=== PATIENT | male | born 1970 | race Caucasian/White ===

== ENCOUNTER 2017-04-25 09:36 | Emergency (ER) | payer OTHER ==
[~2017-04-25] VITALS: Ht 182.9 cm; Wt 93.0 kg
[~2017-04-25 09:36] MED LIST: AUGMENTIN 875-1 EACH PO; BACTRIM DS TAB1 EACH PO; BENADRYL25 MG PO; BUTRANS1 EAC1 TD; CEPHALEXIN500 MG PO; DICLOXACILLIN500 MG PO; EPIPEN 2-P0.3 MG/0.3 IM; GABAPENTIN600 MG PO; HYDROCODON-ACE1 EAC8 PO; MAPAP500 MG PO; MULTI VITAMIN1 EACH PO; NORCO 10-325 T1 EACH PO; NORCO 5-325 TA1 EACH PO; NORCO 7.5-3251 EACH; PERCOCET 10-321 EACH PO; TYLENOL EXTRA500 MG PO
--- OUTSIDE RECORDS SUMMARY | 2017-04-25 09:47 | XMS | Clinical Summary ---
Demographics + + + | Address | [address] | | | [place] [address] | + + + | Home Phone | | + + + | Preferred Language | Unknown | + + + | Marital Status | Single | + + + | Muslim Affiliation | Unknown | + + + | Race | White | + + + | Ethnic Group | Not or | + + + Author + + + | Author | NON REVENUE LOCATIONS | + + + | Organization | NON REVENUE LOCATIONS | + + + | Address | Unknown | + + + | Phone | Unavailable | + + + Support + + +---------+ + | Name | Relationship | Address | Phone | + + +---------+ + | GEOFF POSADAS | ECON | Unknown | | + + +---------+ + Care Team Providers + +------+ + | Care Teacher Hearing Impaired Name | Role | Phone | + +------+ + | Mohan Bullock NP | PP | | + +------+ + Source Comments SUKHJINDER is fully live on both [facility] Ambulatory and [facility] InPatient.[facility] Allergies Not on File Current Medications Not on file Active Problems Not on file Social History + +-------+ +--------+------+ | Tobacco Use | Types | Packs/Day | Years | Date | | | | | Used | | + +-------+ +--------+------+ | Never Assessed | | | | | + +-------+ +--------+------+ + + + | Sex Assigned at | Date Recorded | | | | + + + | Not on file | | + + + Plan of Treatment + + + + + | Health Maintenance | Due Date | Last Done | Comments | + + + + + | INFLUENZA VACCINE | | | | | (FLU SHOT) | 7 | | | + + + + + Results Not on filefrom Last 3 Months"
--- OUTSIDE RECORDS SUMMARY | 2017-04-25 09:47 | XMS | Clinical Summary ---
Demographics + + + | Address | [address] | | | [place] [address] | + + + | Home Phone | | + + + | Preferred Language | Unknown | + + + | Marital Status | Single | + + + | Catholic Affiliation | Unknown | + + + [...] Team Providers + +------+ + | Care Trash Collector Supervisor Name | Role | Phone | + +------+ + | Mohan Bullock NP | PP | | + +------+ + Source Comments SUKHJINDER is fully live on both [facility] Ambulatory and [facility] InPatient.[facility] Allergies Not on File Current Medications Not [...]
[2017-04-25] MEDS ORDERED: BACTRIM DS TAB1 EACH PO ×2 (09:54→11:00)
[2017-04-25] MEDS ORDERED: AUGMENTIN 875-1 EACH PO (09:54)
[2017-04-25] MEDS ORDERED: ONDANSETRON ODT8 MG PO (11:00)
[2017-04-25] MEDS ORDERED: NORCO 5-325 TA1 EACH PO (11:00)
== END 2017-04-25 11:21 | disposition home or self-care (01) ==
LOC: ED 09:36
DX: R10.11 Right upper quadrant pain (principal); Z91.048 Other nonmedicinal substance allergy status; Z88.6 Allergy status to analgesic agent; Z88.8 Allergy status to other drugs, medicaments and biological substances; Z88.5 Allergy status to narcotic agent
CPT/HCPCS: 76705; 96374; 96375; 99284; J1170; J2405; J7030

== ENCOUNTER 2017-04-28 21:22 | Inpatient (IN) | payer OTHER ==
[~2017-04-28] VITALS: Ht 182.9 cm; Wt 92.7 kg
[~2017-04-28 21:22] MED LIST changes: +ONDANSETRON ODT8 MG PO
--- NOTE | 2017-04-29 02:05 | NUR ---
46YR OLD MAN ADMITTED FROM ER VIA STRETCHER TO ROOM 108. PT IS ALERT, ORIENTED IN GOOD SPIRITS ABLE TO STAND AND PIVOT ONTO BE. PT HAS BKA ON L. DENIES NAUSEA, RATES PAIN 4/10 R MID ABD. DENIES NEED FOR PAIN MEDICATION AT THIS TIME. ORIENTED TO ROOM AND CALL LIGHT. DENIES NEED TO VOID. ORDERS NOTED.
--- NOTE | 2017-04-29 03:06 | NUR ---
MEDICATED WITH MORPHINE 4MG IV C/O RUQ PAIN 09/03. WATCHING TV, NO N/V
--- NOTE | 2017-04-29 04:17 | NUR ---
PT AWAKE, WATCHING TV, NO FURTHER C/O PAIN AT [facility]. TOOK OFF HIS RIGHT LEG PROSTHESIS, PT DOES OWN CARE. NO N/V AT THIS TIME
--- NOTE | 2017-04-29 05:00 | NUR ---
medicated with Morphine 4mg iv c/o 09/03 abd pain, no n/v
--- NOTE | 2017-04-29 05:08 | NUR ---
Pt admitted at around 0230am to . c/o RUQ pain. has been medicated with 2 doses of Morphine 4mg iv, with good to fair pain relief, no n/v. IVF infusing w/o problems. Received one dose abx in ER. no adverses reaction to abx. 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 Pt does own prostesis care. Pt has been up to brp x2, with one person assist, has voided clear yellow urine, quantity sufficient. Waiting to be seen by Dr Kuhn this am. No other requests
--- NOTE | 2017-04-29 07:05 | NUR ---
medicated with morphine 4mg iv c/o 7 RUQ pain. AWake watching tv
--- NOTE | 2017-04-29 07:39 | NUR ---
PATIENT SITTING UP IN RECLINER PLAYING ON IPAD. CALL BUTTON IN REACH. HANDS AND FACE WASHED. PATIENT STATES THAT HER SISTER IS BRINGING CLOTHES TO CUELLAR IN TO BUT DOESNT WANT A SHOWER TODAY. ORAL CARE SET UP IN BATHROOM FOR USE AFTER BREAKFAST. NO OTHER NEEDS AT THIS TIME.
--- NOTE | 2017-04-29 07:43 | NUR ---
MEDHAT ASSESSMENT DONE. PT CONTINUES TO COMLAIN OF 09/03 PAIN IN RUQ. PT AWARE OF PAIN MEDICATION SCHEDULE AND STATES "I'M FINE UNTIL THE NEXT DOSE." PT WAITING TO SEE DR. VALLECILLO. PT VERBALIZES UNDERSATNDING OF PLAN OF CARE. PT WATCHING TV. BED RAILS UP. CALL LIGHT WITHIN REACH.
--- NOTE | 2017-04-29 09:04 | NUR ---
PT CALL LIGHT ON. PT REQUESTS PAIN MEDICATION AND TO KNOW WHEN HIS SCAN WILL BE. PT INFOMRED THAT SCAN WILL LIKELY BE EARLY THIS AFTERNOON. PT EXPRESSESS FRUSTRATION "ARE YOU FREEKING KIDDING ME!" AND STATES HE DOES NOT WANT TO GO ALL DAY WITHOUT EATING. PT ADVISED THAT THE SCAN WILL HAPPEN SOON POSSIBLE. MEDICAITONS GIVEN ORDERED (SEE MAR). PT EDUCATION R/T WHY TORDOL INSTEAD OF MORPHINE PERFORMED. PT VERBALIEZES UNDERSTANDING. PT WATCHING TV WITH MOTHER AT BEDSIDE. BED RAILS UP. CALL LIGHT WITHIN REACH. PT STATE HE HAS NO FURTHER REQUESTS OR COMPLAINTS AT THIS TIME.
--- NOTE | 2017-04-29 10:32 | NUR ---
NITHYA INFORMED THIS RN THAT PT HAS QUESTIONS ABOUT SHOWERING. PT ASKS IF HE SHOULD HAVE A HIBACLENS SHOWER. PT ADVISED THAT THIS IS NOT NECESSARY AT THIS POINT. PT STATES HE WOULD LIKE TO ANYWAY. NITHYA INFORMED AND IS ASSISTING PT WITH SHOWER. PT RATES HIS PAIN AT 7/10 THAT IS WORSE WITH MOVEMENT. BED RAILS UP. CALL LIGHT WITHIN REACH FAMILY AT BEDSIDE.
--- NOTE | 2017-04-29 10:40 | NUR ---
SPOKE WITH PATIENT IN ROOM. PRESENT IS HIS MOTHER. PATIENT LIVES WITH EDWARD WHO IS AT WORK. PATIENT DENIES ANY NEEDS FOR SAFE RETURN HOME AT DISCHARGE. ONLY ISSUE IS HE STATES HE NEEDS A NEW PCP. PATIENT HAS SEEN DR AMATO IN THE PAST. ACCORDING TO PATIENT, HE TRIED MAKING AN APPOINTMENT WITH HIM LAST WEEK REGARDING HIS ABDOMIN PAIN. HE WAS TOLD HE CANNOT GET IN FOR 3 MONTHS BECAUSE HE NEEDS AN APPOINTMENT FOR AT LEAST AN HOUR AND THEY DIDN'T HAVE ANYTHING AVAIABLE EARLIER. HE WAS VERY UPSET ABOUT THIS, AND WANTS TO FIND ANOTHER CLINIC. WE WILL HAVE CHW PROVIDE HIM PCP INFORMATION.
--- NOTE | 2017-04-29 11:10 | NUR ---
CHW visit with patient in room accompanied by his mother. Patient presented to the hospital with no current PCP. Previously had Dr. Knutson but when attempted to make appointment patient reports he was told it would take several months to get in as his appointment would need to be scheduled for one hour. Patient reports he would like to establish with a new PCP. I presented patient with a list of current local PCPs in our area acceptient new patient's and a blank TALAT. Explained that I could not recommend any one PCP vs. another, only who is accepting new patients. I also left my business card as a point of contact if they have any other questions or concerns.
--- NOTE | 2017-04-29 11:18 | NUR ---
PATIENT DONE WITH [facility] SHOWER. RIGHT ARM IV FLUSHED WITH 3ML OF NORMAL SALINE. BEDDING FRESHENED. PATIENT UP TO AMBULATE IN HALLWAY.
--- NOTE | 2017-04-29 12:08 | NUR ---
PT RESTING IN BED, WITH MOTHER AT SIDE. PT MENTIONED THAT HE HAS TROUBLE WITH STEVE SINCE JAN. PRETTY PAINFUL-WALKED AROUND SANDERS UNTIL PAIN INCREASED. PT MENTIONED WAITING FOR 1 MORE TEST-THEM SURGERY WITH DR VALLECILLO. HAD PRAYER WITH PT, GOOD VISIT, WILL CONTINUE TO FOLLOW
--- NOTE | 2017-04-29 12:10 | NUR ---
FOCUSED ASSESSMENT DUE. IMAGING TECHNITIAN AT BEDSIDE DISCUSSING SCAN WITH PT. PT STATES HIS QUESTIONS WERE ANSWERED. PT REPORTS 8/10 PAIN IN RUQ. PT UP TO AMBULATE AROUND UNIT WITH FAMILY. PT STATES NO REQUESTS OR COMPLAINTS AT THIS TIME.
--- NOTE | 2017-04-29 12:25 | NUR ---
PT CALL LIGHT ON. PT STATES HE IS FINISHED WITH HIS WALK AND IS READY TO BE "HOOKED BACK UP TO MY IV." IV FLUIDS RESTARTED. PT WATCHING TV. NO REQUESTS OR COMPLAINTS AT THIS TIME.
--- NOTE | 2017-04-29 13:03 | NUR ---
PATIENT SALINE LOCKED, UP TO BATHROOM TO VOID. IMAGING HERE TO TRANSPORT PATIENT TO DEPARTMENT FOR TESTING.
--- NOTE | 2017-04-29 14:54 | NUR ---
PT REPORTS PAIN 8/10 AFTER RETURNING FROM [place] SCAN. 4MG I.V. MORPHINE GIVEN AT THIS TIME. WILL MONITOR EFFECTIVENESS. PT REPORTS NO NAUSEA AT THIS TIME
--- NOTE | 2017-04-29 15:00 | NUR ---
PATIENT SITTING UP IN BED. MOTHER IN ROOM. CALL BUTTON IN REACH. NO NEEDS AT THIS TIME.
--- NOTE | 2017-04-29 15:23 | NUR ---
SURGERY RN'S HERE TO TAKE PT FOR EGD. PT VERBALIZES UNDERSTANDING OF PROCEEDURE AND STATES QUESTIONS HAVE BEEN ANSWERED. PT LEAVES WITH SURGERY RNS.
--- NOTE | 2017-04-29 15:52 | NUR ---
04/29/17 1552 Connie Shi 1546 PT ARRIVED IN PACU SLEEPY VISITING WITH STAFF. NO C/O'S AT THIS TIME. 1552 AT BEDSIDE.
--- NOTE | 2017-04-29 16:10 | NUR ---
PT RETURNED FROM PACU. PT IRRITATED WITH PLAN OF CARE. PT STATES "I JUST WANT SOMETHING TO EAT, ITS NOT MY STOMACH THAT HURTS." PT ASSESSMENT DONE. MEDICAITONS GIVEN (SEE MAR). PT VERBALIZES UNDERSTANDING OF PLAN OF CARE. PT WATCHING TV. BED RAILS UP. CALL LIGHT WITHIN REACH.
--- NOTE | 2017-04-29 17:12 | NUR ---
PT HERE FOR RUQ PAIN. PT REPORTS PAIN FROM 5-8/10. PT REQUESTS PAIN MEDICATIONS FREQUENTLY. EGD TODAY, GASTRITIS AND DUODENITIS FOUND. PT STARTED ON FULL LIQUID DIET AND CARAFATE. HYDA SCAN DONE TODAY, WNL. PT IRRITABLE WITH PLAN OF CARE. PT INDEPENDANT IN ROOM. HX OF RIGHT BKA. PT DENIES NAUSEA. FAMILY AT BEDSIDE. PIV IN RIGHT FORARM, INFUSING D5 LR AT 125. BOTH PEPCID AND PROTONIX ORDERED.
--- NOTE | 2017-04-29 17:26 | NUR ---
PT CALL LIGHT ON. PT STATES HE IS NOW HAVING 9/10 PAIN AFTER EATING SOME OF HIS LIQUID DIET TRAY. PT STATES "IT'S NO MY STOMACH THAT HURTS IT'S MY GALL BLADDER." PT IRRITABLE AND STATES "I JUST WANT SOME PIZZA." PT ADVISED THAT THIS COULD WORSEN HIS CONDITION AND FOR NOW THE DOCTOR HAS HIM ON A FULL LIQUID DIET. PT OFFERED PUDDING, YOGURT, MILK SHAKES AND OTHER FOODS. ALL REFUSED. PT WATCHING TV. BED RAILS UP. CALL LIGHT WITHIN REACH.
--- NOTE | 2017-04-29 18:51 | NUR ---
LAST Q HOUR VITALS DUE. PT REQUESTS ASSISTANCE UP TO REST ROOM. PT UP AND BACK TO BED WITHOUT ISSUE. SUPERVISOR PYROTECHNIC LOADING PRESENT IN ROOM ASISTING PT WHEN THIS RN ARRIVES. PT STATING "4/10" PAIN TO SUPERVISOR PYROTECHNIC LOADING. WHEN ASKED BY THIS RN PT REQUESTS PAIN MEDICATION. PT NOW STATING "7/10 STABBING PAIN." PT BACK TO BED. BED RAILS UP. CALL LIGTH WITHIN REACH. PT STATES HE HAS NO ADDITIONAL REQUESTS OR COMPALINTS AT THIS TIME.
--- NOTE | 2017-04-29 18:58 | NUR ---
RECEIVED REPORT FROM RN. PATIENT IS RESTING IN BED, BREATHING IS EVEN AND UNLABORED. REPORTS 09/03 PAIN IN ABD. DENIES NEED FOR PAIN MEDICATION AND STATES "THE DAY NURSE JUST GAVE IT TO ME A LITTLE BIT AGO." CALL LIGHT WITHIN REACH.
--- NOTE | 2017-04-29 19:08 | NUR ---
Per Dr Kuhn, patient is to take famotidine and pantoprazole
--- NOTE | 2017-04-29 21:45 | NUR ---
PATIENT RESTING COMFORTABLY IN BED, BREATHING IS EVEN AND UNLABORED. REPORTS 4/10 PAIN IN ABD. ASSESSMENT DONE, MEDICATIONS GIVEN PER EMAR, INCLUDING PRN PAIN MEDICATION. O2 SATURATION IS 95% ON ROOM AIR, PULSE IS 75. CALL LIGHT WITHIN REACH, AT BEDSIDE.
--- NOTE | 2017-04-29 23:22 | NUR ---
PATIENT RESTING COMFORTABLY IN BED, BREATHING IS EVEN AND UNLABORED. O2 SATURATION IS 95% ON ROOM AIR, PULSE IS 71. FLACC SCORE OF 0, RR IS 12. CALL LIGHT WITHIN REACH.
--- NOTE | 2017-04-30 02:43 | NUR ---
PATIENT RESTING COMFORTABLY IN BED, BREATHING IS EVEN AND UNLABORED. O2 SATURATION IS 95% ON ROOM AIR, PULSE IS 62. FLACC SCORE OF 0. CALL LIGHT WITHIN REACH.
--- NOTE | 2017-04-30 05:04 | NUR ---
PATIENT'S NIGHT WAS UNEVENTFUL. HE HAS BEEN RESTING THROUGHOUT SHIFT. VSS, URINE, PAIN WELL CONTROLLED WITH PRN PAIN MEDICATION. ALERT AND ORIENTED. ABD IS TENDER, BOWEL TONES ARE ACTIVE, PATIENT HAS FLATUS. PATIENT IS A SBA. IV FLUIDS INFUSING. NO ACUTE CHANGES FROM BEGINNING OF SHIFT.
--- NOTE | 2017-04-30 05:07 | NUR ---
PATIENT RESTING COMFORTABLY IN BED, BREATHING IS EVEN AND UNLABORED. FLACC SCORE OF 0. 02 SATURATION IS 97% ON ROOM AIR, PULSE IS 57. CALL LIGHT WITHIN REACH.
--- NOTE | 2017-04-30 05:32 | NUR ---
PATIENT ASSISTED TO BATHROOM WITH SBA. TOLERATING AMBULATION WELL. NOW RESTING IN BED AGAIN, BREATHING IS EVEN AND UNLABORED. O2 SATURATION IS 97% ON ROOM AIR, PULSE IS 58. REPORTS 8/10 PAIN IN RUQ OF ABD, PRN PAIN MEDICATION GIVEN. DENIES FURTHER NEED.S ASSESSMENT DONE. CALL LIGHT WITHIN REACH.
--- NOTE | 2017-04-30 07:08 | NUR ---
HAND OFF REPORT TAKEN FROM JOSH GUERIN. PT COMPLAINS OF 7/10 PAIN REQUESTING "MORE MORPHINE SOON POSSIBLE." THIS RN RETURNS TO ROOM WITH MORPHINE AND PT IS SLEEPING. RR = 12. PT AWAKENS TO VOICE. MEDICATION GIVEN (SEE MAR). PT FALLS EASILY BACK TO SLEEP. BED RAILS UP. CALL LIGTH WITHIN REACH.
--- NOTE | 2017-04-30 08:20 | NUR ---
PATIENT RESTING IN BED WATCHING TV. IN ROOM. PATIENT STATED 3 TIMES THAT HE IS SUPRISED THAT THE DRSilvia HAS NOT BEEN INTO SEE HIM THIS AM. PATIENT HANDS AND FACE WASHED. ORAL CARE SET UP IN BATHROOM FOR USE. RN IN ROOM TO PASS MEDS. FRESH ICE WATER GIVEN. NO OTHER NEEDS AT THIS TIME.
--- NOTE | 2017-04-30 08:41 | NUR ---
MORNING ASSESSMENT AND MEDICATIONS DUE. PT RESTING IN BED VISITING WITH AND FRIEND. PT REPORTS 09/03 PAIN "THAT GOES TO MY BACK." EDUCATION DONE R/T MEDICATIONS. PT DENIES NEED FOR MEDICATIONS BUT STATES "ILL TAKE THEM ANYWAY." ASSESSMENT DONE. MEDICAITONS GIVEN (SEE MAR). PT LAUGHING AND VISITING WITH AND FRIENDS. CALL LIGHT WITHIN REACH.
--- NOTE | 2017-04-30 08:57 | NUR ---
PT CALL LIGHT ON. PUMP ALARMING, FLUID BAG COMPLETE. PT TALKIG WITH FAMILY AND FRIENDS. PT REPORTS DRINKING A LARGE (HANDS SHOW ABOUT 32 OZ) MILK SHAKE LAST NIGHT. NEW BAG OF FLUID HANGING. PT EXPRESSES IRRITATION WITH PLAN OF CARE. " I FIGURED I HAVE ANSWERS BY NOW." BED RAILS UP. CALL LIGHT WITHIN REACH. THIS NURSES LEAVES ROOM. PT LAUGHING AND JOKING WITH FRIENDS.
--- NOTE | 2017-04-30 09:43 | NUR ---
QUESTION TO PATIENT AND TO HOW MUCH PATIENT MAY HAVE EATEN AFTER MIDNIGHT. PATIENT ENDORSED THAT HE HAD A MILKSHAKE BEFORE MIDNIGHT, 150ML OF WATER AFTER MIDNIGHT AND HAS CONTINUED TO CHEW TOBACCO THROUGHOUT. PATIENT UP TO AMBULATE IN HALLWAY.
--- NOTE | 2017-04-30 09:57 | NUR ---
PT REQUESTS MORE PAIN MEDICATION. THIS RN RESPONDS. PT REPORTING 8/10 PAIN "THROUGH TO THE BACK." EUDCATION R/T NPO STATUS. PT VERBALIZES UNDERSTANDING THAT NPO STATUS INCLUDES WATER AND CHEW. PT STATES HE WILL STOP USING HIS CHEW AND THAT "I HAVEN'T HAD ANY SINCE 529." MEDICAITON GIVEN (SEE MAR). PT WATCHIGN TV AND VISITING WITH . NO ADDITIONAL REQUESTS OR COMPLAINTS AT THIS TIME.
--- NOTE | 2017-04-30 10:24 | NUR ---
PATIENT IN BED RESTING. PATIENTS IN ROOM. CALL BUTTON IN REACH. NO OTHER NEEDS AT THIS TIME.
--- NOTE | 2017-04-30 10:59 | NUR ---
FOCUSSED ASSESSMENT DUE. PT UP IN BED WORKING ON PHONE AND TALKING WITH . PT REPORTS 6/10 PAIN. PT JOKING AND LAUGHING WITH . ASSESMENT DONE. JOSEPHINE HELD R/T NPO STATUS. PT VERBALIZES UNDERSTANDING OF PLAN OF CARE BUT REQUESTS FRUSTRATION "OH, GEEZE IT'S TAKING SO LONG TO FIX THIS PROBLEM." PT STATE HE HAS NOT HAD ANY CHEW SINCE 0500 BUT CHEW CANISTER IS NOTED AT BEDSIDE ( PROMPTLY PUTS IT AWAY). BED RAILS UP. CALL LIGHT AND PT BELONGINGS WITHIN REACH.
--- NOTE | 2017-04-30 13:48 | NUR ---
THIS RN CALLED SURGERY DEPARTMENT TO ASK ABOUT GIVING 1400 ANCEF. SURGERY FLAVOR EXTRACTOR STATES THE ANCEF WILL BE A PRE OP MED AND TO HOLD IT UNTIL SURGERY STAFF COMES. PT SURGERY CHECK LIST CONFIRMED. LR FOR SURGERY HUNG, PUMP OFF. PT REPORTING 6/10 PAIN IN RUQ. BED RAILS UP. CALL LIGHT WITHIN REACH.
--- NOTE | 2017-04-30 13:54 | NUR ---
PATIENT RESTING IN BED WATCHING TV. PATIENTS IN ROOM. CALL LIGHT WITHIN REACH. NO OTHER NEEDS AT THIS TIME.
--- NOTE | 2017-04-30 14:00 | NUR ---
PT RESTING IN BED, EDWARD ASLEEP NEXT TO HIM. SURGERY SCHEDULED FOR 1500 HRS TODAY. PT REQUESTED PRAYER, WILL FOLLOW NEEDED
--- NOTE | 2017-04-30 14:10 | NUR ---
SURGERY RN HERE TO TAKE PT. PT STATES ALL QUESTIONS HAVE BEEN ANSWERED. PT TRANSFERED TO SURGERY. REPORT GIVEN.
--- NOTE | 2017-04-30 18:17 | NUR ---
04/30/171816 Patricia Ko PATIENT MOANS. WHEN QUESTIONED WHETHER HE IS HAVING PAIN, PATIENT REPORTS "YEAH, STOMACH". PT IS UNABLE TO RATE HIS PAIN ON THE 1-10 SCALE. PT QUICKLY QUIETS. RR EVEN AND UNLABORED.
--- NOTE | 2017-04-30 18:30 | NUR ---
PRE OP: PT CONTINUES WITH 7-9/10 PAIN. PAIN MEDICATION GIVEN WHEN REQUESTED. PT NPO FOR SURGERY. PIV IN RIGHT ARM, D5 LR AT 125ML/HR. HX OF RIGHT BKA. PT INDEPENDANT IN ROOM BEFORE SURGERY. EGD YESTERDAY (GASTRITIS, DUODENITIS). PT DEPARTED FOR LAP STEVE THIS AFTERNOON. RETURNING NOW.
--- NOTE | 2017-04-30 19:00 | NUR ---
RECEIVED REPORT FROM RN. PATIENT BACK FROM SURGERY, REPORTS 6/10 PAIN AND STATES "MY PAIN IS FINE." DENIES NEEDS AT THIS TIME. CALL LIGHT WITHIN REACH.
--- NOTE | 2017-04-30 19:13 | NUR ---
PT RETURNED FROM PACU. PT REPORTING 6/10 PAIN AND STATES "I'M FINE RIGHT NOW." PT ANXIOUS TO "HAVE MY CHEW." PT ADVISED THAT THIS WOULD NOT BE A GOOD IDEA RIGHT AFTER SURGERY. ASSESSEMENT DONE. HAND OFF REPORT GIVEN TO JOSH GUERIN. BED RAILS UP. CALL LIGHT WITHIN REACH. O2 MONITOR ON.
--- NOTE | 2017-04-30 20:08 | NUR ---
PATIENT RESTING COMFORTABLY IN BED, BREATHING IS EVEN AND UNLABORED. REPORTS 8/10 PAIN AT INCISION SITES, PRN MORPHINE GIVEN. DENIES FURTHER NEEDS. O2 SATURATION IS 93% ON ROOM AIR, PULSE IS 69, RR IS 16. CALL LIGHT WITHIN REACH, AT BEDSIDE.
--- NOTE | 2017-04-30 21:00 | NUR ---
PATIENT GIVEN BROTH AND JELLO PER REQUEST. NO PAIN OR NAUSEA NOTED. CALL LIGHT IN [facility].
--- NOTE | 2017-04-30 21:15 | NUR ---
PATIENT IS RESTING IN BED, BREATHING IS EVEN AND UNLABORED. O2 SATURATION IS 98% ON ROOM AIR, PULSE IS 86. PATIENT REPORTS 8/10 PAIN AT INCISION SITES AND STATES "CAN I TRY SOMETHING DIFFERENT FOR PAIN? I DON'T THINK THE MORPHINE IS DOING IT." PRN PERCOCET GIVEN PER EMAR. PATIENT DENIES FURTHER NEEDS. VITALS DONE, UMBILICAL INCISION REINFORCED WITH GAUZE. CALL LIGHT WITHIN REACH.
--- NOTE | 2017-04-30 22:17 | NUR ---
PATIENT RESTING COMFORTABLY IN BED, BREATHING IS EVEN AND UNLABORED. O2 SATURATION IS 95% ON ROOM AIR. PATIENT STATES THAT PAIN IS 5/10. DENIES NAUSEA AFTER EATING FULL LIQUIDS. PATIENT REQUESTING SOLID FOOD. VITALS DONE. CALL LIGHT WITHIN REACH.
--- NOTE | 2017-04-30 23:20 | NUR ---
PATIENT IS RESTING COMFORTABLY IN BED, BREATHING IS EVEN AND UNLABORED. O2 SATURATION IS 99% ON ROOM AIR, PULSE IS 90. FLACC SCORE OF 0. CALL LIGHT WITHIN REACH.
--- NOTE | 2017-05-01 00:54 | NUR ---
assisted patient to bathroom with sba. now resting comfortably in bed, breathing is even and unlabored. reports 8/10 pain at incision sites, prn pain medication given. denies further needs. o2 saturation is 95% on room air. call light within reach.
--- NOTE | 2017-05-01 02:37 | NUR ---
PATIENT RESTING COMFORTABLY IN BED, BREATHING IS EVEN AND UNLABORED. O2 SATURATION IS 96% ON ROOM AIR, PULSE IS 80. REQUESTING PAIN MEDICATION FOR 8/10 PAIN AT INCISION SITES. BROUGHT PAIN MEDICATION TO BEDSIDE PER PATIENT REQUEST AND PATIENT STATES "I REALLY APPRECIATE IT, BUT I DON'T WANT THAT PAIN MEDICATION NOW THAT I THINK ABOUT IT. I AM GOING TO TRY AND GET SOME SLEEP AND SEE IF THAT HELPS. I DON'T THINK I REALLY NEED IT RIGHT NOW." WILL CONTINUE TO MONITOR PATIENT'S PAIN CONTROL. PATIENT DENIES FURTHER NEEDS. ASSESSMENT DONE. CALL LIGHT WITHIN REACH.
--- NOTE | 2017-05-01 04:30 | NUR ---
PATIENT REPORTS 8/10 PAIN AT INCISION SITES AND ABD MUSCLES. PRN PERCOCET GIVEN PER EMAR. DENIES FURTHER NEEDS. CALL LIGHT WITHIN REACH.
--- NOTE | 2017-05-01 06:41 | NUR ---
PATIENT RESTING IN BED, BREATHING IS EVEN AND UNLABORED. REPORTS 7/10 PAIN AT INCISION SITES AND ABD MUSCLES. PATIENT WISHES TO NOT HAVE IV PAIN MEDICATION. DENIES NEEDS AT THIS TIME. CALL LIGHT WITHIN REACH.
--- NOTE | 2017-05-01 07:52 | NUR ---
PATIENT LAYING IN BED EYES CLOSED, MOM IN ROOM. PATIENT JUST CAME BACK TO ROOM FROM A WALK. IS READY FOR PAIN MEDS NOW. HAD MCDONALDS THIS MORNING. FRESH ICE WATER. CALL LIGHT IN ROOM.
--- NOTE | 2017-05-01 08:34 | NUR ---
PATIENT UMBILICUS LAPRASCOPIC DRESSING REINFORCED AT THIS TIME, BLOODY DRAINAGE NOTED. PATIENT IS ALERT AND ORIENTED AND HAS BEEN UP AMBULATING IN THE HALLWAY. HE HAS C/O 8/10 ABDOMINAL PAIN AND WAS GIVEN 2 PERCOCET PO AT THIS TIME.
[2017-05-01] MEDS ORDERED: PANTOPRAZOLE SO40 MG PO (08:44)
[2017-05-01] MEDS ORDERED: SUCRALFATE1 GM/10 ML PO (08:44)
[2017-05-01] MEDS ORDERED: PERCOCET 10-321 EACH PO (08:45)
--- NOTE | 2017-05-01 09:37 | NUR ---
PATIENT GIVEN D/C INSTRUCTIONS QUESTIONS ANSWERED.
--- NOTE | 2017-05-01 09:43 | NUR ---
PATIENT DRESSED, SITTING IN CHAIR. DISCHARGE VITALS DONE. FRESH ICE PACK, WAITING ON .
--- NOTE | 2017-05-01 11:04 | NUR ---
PT DRESSED AND READY FOR DC-WAITING FOR RIDE. THANKED ME FOR VISITING, EXTENDED A BLESSING
[2017-05-01] MEDS ORDERED: OXYCODONE-ACET1 EAC3 PO (22:58)
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
--- NOTE | 2017-05-02 14:12 | OR ---
[facility] [address], [place] [address] Signed DATE OF OPERATION: 04/30/2017 SURGEON: Lizbet Vallecillo MD PREOPERATIVE DIAGNOSIS: Chronic subacute acalculous cholecystitis. POSTOPERATIVE DIAGNOSIS: Chronic subacute acalculous cholecystitis. PROCEDURES: 1. Laparoscopic cholecystectomy with intraoperative cholangiogram. 2. Surgeon-directed fluoroscopy. ANESTHESIA: General endotracheal; Мария Santa CRNA and local 10 mL of 0.25% Marcaine with epinephrine. INDICATION: This 46-year-old white man has no primary care physician. For several weeks, he has had increasing right subcostal pain worsened after intake of food. He has a strong family history of biliary disease in his mother, father and other family members. A week ago, he was seen in the emergency room for severe right upper abdominal pain. A gallbladder ultrasound was performed, which showed a positive sonographic Quijano sign, but no sign of gallstones within the gallbladder and a somewhat contracted gallbladder. There was no sign of pericholecystic fluid. He was discharged from the emergency room, but re-appeared 2 nights ago with significant disabling right subcostal pain, highly suggestive of acute cholecystitis. He was admitted by mo, given intravenous antibiotics, parenteral pain medication and further evaluation undertaken. This included a CCK-HIDA test the following morning of admission, which showed an ejection fraction of 84% with reproduction of his symptoms, but no sign of objective gallbladder wall or gallbladder ejection problem. On that basis, he yesterday also underwent upper endoscopy. It is noted that he had a history of a duodenal ulcer, thought related to Motrin use several years ago. He did have duodenitis, but no sign of ulceration. He did have some antral gastritis as well, but no ulcer or neoplasm. The esophagus was normal. He was treated with H2 blockers, intravenous PPI medication and topical (oral) Carafate. This did not seem to improve his symptoms at all and on that basis, consideration is Electronically Signed By: LIZBET VALLECILLO MD 05/02/17 1412 PATIENT NAME: ORIANA POSADAS OPERATIVE REPORT DATE OF : 72 REPORT #: [id number] PHYSICIAN: LIZBET VALLECILLO MD PCP: NO PRIMARY CARE PHYSICIAN REPORT IS CONFIDENTIAL AND NOT TO BE RELEASED WITHOUT AUTHORIZATION [facility] [address], [place] [address] Signed made that his symptoms are in fact related to acalculous cholecystitis despite a normal CCK-HIDA test and mindful of duodenitis noted on upper endoscopy. He strongly wishes to proceed with cholecystectomy, as does his and other family members. He understands the risks of operation including, but not limited to, bleeding, infection, bile duct injury, need for open procedure and probably most important of all in his case possibility of non-improvement of his symptoms. Understanding this, he wished to proceed. FINDINGS: The gallbladder did look chronically inflamed. There was no sign of pericholecystic fluid or adhesions. The liver appeared normal. The terminal ileum and appendix were normal. Cholecystectomy was performed without problem. Cholangiogram was normal. The gallbladder once opened showed chronic inflammatory change of the mucosa, but no sign of stone or neoplasm. DESCRIPTION OF PROCEDURE: The patient was brought to the operating room and given a general endotracheal anesthetic. Preoperative antibiotic Ancef was given. Sequential compression device stockings were used and heparin subcutaneously administered. The abdomen was clipped and prepared with chlorhexidine solution and draped sterilely. An infraumbilical incision was made and using an open Naveed cannula technique, pneumoperitoneum was achieved to a level of 14 mmHg with carbon dioxide gas. Intraabdominal inspection showed no sign of ascites or carcinomatosis. The liver appeared normal, but the gallbladder appeared somewhat distended and subacutely inflamed. Three additional trocars were placed in usual configuration epigastric, midclavicular and right anterior axillary line. The gallbladder was elevated cephalad and retracted laterally. There was no sign of omental adhesions to the underside of the gallbladder. The infundibulum was grasped and retracted laterally and using blunt and electrocautery dissection, the triangle of Calot was dissected free, ultimately identifying well the cystic duct, which was rather small. A clip was applied across the gallbladder cystic duct junction and a transverse choledochotomy made in the cystic duct. Retrograde milking of the cystic duct showed no evidence of stone. Using an Page-type cholangiocatheter, intraoperative cholangiography was undertaken with surgeon-directed fluoroscopy. Free flow of contrast was noted into the biliary tree with prompt emptying into the duodenum. Retrograde filling of the proximal biliary tree was also considered normal. The catheter was removed and the cystic duct was triply clipped and divided and the gallbladder dissected free in a retrograde fashion using electrocautery. The gallbladder was extracted through the infraumbilical port site without problem, opened on the back table and found to have chronic inflammatory change of the mucosa, but no sign of stones or sludge. There was certainly no neoplasm. Electronically Signed By: LIZBET VALLECILLO MD 05/02/17 1412 PATIENT NAME: ORIANA POSADAS OPERATIVE REPORT DATE OF : 72 REPORT #: [id number] PHYSICIAN: LIZBET VALLECILLO MD PCP: NO PRIMARY CARE PHYSICIAN REPORT IS CONFIDENTIAL AND NOT TO BE RELEASED WITHOUT AUTHORIZATION [facility] [address] [place] [address] Signed Irrigation of the subhepatic space showed no sign of bile leak, bleeding, or other problems. The trocars were removed under direct visualization showing no sign of bleeding. The infraumbilical fascial incision was reapproximated with interrupted 0 Vicryl suture. All wounds were copiously irrigated with saline solution. Skin closed with interrupted 3-0 Vicryl. Steri-Strips were applied. The patient was ultimately extubated and transferred to the recovery room in good condition having suffered no complications. Sponge, needle, and instruments counts reported correct x3. MD CORNELIA Keene/MODL /[id number] cc: MD Wilberto Blount DO Sheldon Wendler, MD Copies: KARIN RUIZ MD, JAMES ALAN DO WENDLER, SHELDON MD ~ Electronically Signed By: LIZBET VALLECILLO MD 05/02/17 1412 PATIENT NAME: ORIANA POSADAS OPERATIVE REPORT DATE OF : 72 REPORT #: [id number] PHYSICIAN: LIZBET VALLECILLO MD PCP: NO PRIMARY CARE PHYSICIAN REPORT IS CONFIDENTIAL AND NOT TO BE RELEASED WITHOUT AUTHORIZATION
--- NOTE | 2017-05-02 14:12 | OR ---
[facility] [address], [place] [address] Signed DATE OF OPERATION: 04/29/2017 SURGEON: Lizbet Vallecillo MD PREOPERATIVE DIAGNOSES: 1. Persistent right upper abdominal pain, normal ultrasound and CCK-HIDA test except for reproduction of symptoms. 2. History of duodenal ulcer related to NSAID use. POSTOPERATIVE DIAGNOSES: Moderately severe bulbar duodenitis and antral gastritis. No evidence of ulcer. PROCEDURE: Esophagogastroduodenoscopy with biopsy for CLOtest. ANESTHESIA: Intravenous sedation, fentanyl 100 mcg, Versed 5 mg. INDICATION: A 46-year-old white man admitted last night with complaints of recurrent right upper abdominal pain. He has had several weeks of persisting right upper abdominal pain. He has a distant history of duodenal ulcer related to Motrin use. He was treated with Prilosec in the past several days with no clinical benefit. He does have strong family history of biliary disease including his mother, father, niece and other family members. A gallbladder ultrasound performed on or about April 25 showed no sign of stones, but a contracted gallbladder to some degree. His admission to the hospital is now with continued right upper abdominal pain and some episodes of back pain, but not much really. He underwent a CCK-HIDA test earlier today, which showed an ejection fraction of 84%. He did have subcostal pain after injection of the CCK. He is admitted. He is here now to undergo upper endoscopy to assess for possible recurrent duodenal ulcer or other peptic problems. He understands, as this his mother who attends to him the risks of bleeding, infection, and perforation and wished to proceed. FINDINGS: The esophagus was normal. There was antral gastritis without sign of ulceration. There Electronically Signed By: LIZBET VALLECILLO MD 05/02/17 1412 PATIENT NAME: ORIANA POSADAS OPERATIVE REPORT DATE OF : 72 REPORT #: [id number] PHYSICIAN: LIZBET VALLECILLO MD PCP: NO PRIMARY CARE PHYSICIAN REPORT IS CONFIDENTIAL AND NOT TO BE RELEASED WITHOUT AUTHORIZATION [facility] [address], [place] [address] Signed was significant bulbar duodenitis, but no sign of ulcer. The second and third portions were normal. CLOtest is equivocal at 15 minutes. DESCRIPTION OF PROCEDURE: The patient was brought to the endoscopy suite and given topical Hurricaine spray hypopharyngeal anesthesia and placed in lateral decubitus position. He was given intravenous sedation to the point of slurred speech and nystagmus with full cardiopulmonary monitoring. A bite block was placed. An Olympus video upper endoscope was passed in the hypopharynx. The patient did have some resistance to this, so he seemed initially to be relatively deeply sedated. The scope was easily passed through the stomach without problem and the stomach was evaluated showing no sign of blood or bilious fluid. The rugal folds were normal as the scope was passed through the antrum, which showed erythematous changes and erythematous streaking, but no ulcer proper. The pylorus was normal as the scope was passed into it. He did have a fair amount of gagging and so forth at that point. There was marked bulbar duodenitis, but no sign of ulceration. The scope was passed to the second and third portions of his duodenum, which were normal. Photographs were briefly taken. Biopsies taken of the antrum for SANDRA testing. Due to his intolerance of the overall situation, more elaborate biopsies could not be undertaken, but the information sought has been obtained. Retroflexed view did show no sign of large hiatal hernia. Scope was withdrawn and distal esophagus and more proximal esophagus appeared normal. Scope was removed. The patient was taken to the recovery room in good condition. CONCLUDING DIAGNOSIS: Clearly has duodenitis and some antral gastritis. This appears unresponsive to PPI medication. We will empirically treat with Protonix as well as Carafate. We will reassess him in the next 12 to 24 hours and assess whether he is improved to this point or whether in fact his gallbladder may require excision. MD CORNELIA Keene/INGEL /[id number] cc: Antonio Godinez MD Electronically Signed By: LIZBET VALLECILLO MD 05/02/17 1412 PATIENT NAME: ORIANA POSADAS OPERATIVE REPORT DATE OF : 72 REPORT #: [id number] PHYSICIAN: LIZBET VALLECILLO MD PCP: NO PRIMARY CARE PHYSICIAN REPORT IS CONFIDENTIAL AND NOT TO BE RELEASED WITHOUT AUTHORIZATION [facility] [address] [facility] [place] [address] David Copies: ANTONIO GODINEZ MD ~ Electronically Signed By: LIZBET VALLECILLO MD 05/02/17 1412 PATIENT NAME: ORIANA POSADAS EVERETTE OPERATIVE REPORT DATE OF : 72 REPORT #: [id number] PHYSICIAN: LIZBET VALLECILLO MD PCP: NO PRIMARY CARE PHYSICIAN REPORT IS CONFIDENTIAL AND NOT TO BE RELEASED WITHOUT AUTHORIZATION
--- NOTE | 2017-05-02 14:12 | DS ---
[facility] [address], [place] [address] Signed ADMISSION DATE: 04/29/2017 DISCHARGE DATE: 05/01/2017 REASON FOR ADMISSION: This 47-year-old white man has no primary care provider, but does see Dr. 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 The patient has had several months of persistent right upper abdominal pain. In the past 10 days, the pain has worsened quite markedly. He presented to the emergency room over a week ago. An ultrasound gallbladder was performed showing a contracted gallbladder and no stones. Liver enzymes so forth were noted to be normal. The patient has a distant history of duodenal ulceration with bleeding attributed to Motrin use at that time and endoscopic control by Dr. Tavarez in [place], [place]. He has a strong family history of biliary disease including his mother, father, and others. He was admitted for further evaluation and care in the basis of his severe abdominal pain upon his presentation to the emergency room at this time. PERTINENT PHYSICAL EXAMINATION: GENERAL: Showed a well-developed, white man who looks to be uncomfortable. HEENT: Trachea is midline. Mucous membranes are dry. CHEST: Clear. HEART: Regular without murmur. ABDOMEN: Flat and nondistended. There is marked tenderness in the right subcostal area, but no mass or ascites. EXTREMITIES: Show no clubbing, cyanosis, or edema. He does have a right below-knee amputation. LABORATORY DATA: White count at admission was 4.7, hematocrit 41.7, and platelets 252,000. Liver enzymes normal. Lipase normal at 21. He had tenderness in right subcostal area as previously described. HOSPITAL COURSE: He was admitted given fluid resuscitation and parenteral pain medication as well as antibiotics on the basis of probable acalculous cholecystitis. Given his family history and so forth his CCK-HIDA test was performed. This showed an ejection fraction of 84%, but with reproduction of symptoms of pain in his right upper abdomen and posterior thorax area. As this test was somewhat equivocal on that basis, Electronically Signed By: LIZBET VALLECILLO MD 05/02/17 1412 PATIENT NAME: ORIANA POSADAS DISCHARGE SUMMARY DATE OF : 72 REPORT #: [id number] PHYSICIAN: LIZBET VALLECILLO MD PCP: NO PRIMARY CARE PHYSICIAN REPORT IS CONFIDENTIAL AND NOT TO BE RELEASED WITHOUT AUTHORIZATION [facility] [address], [place] [address] Signed upper endoscopy was then performed, which showed duodenitis and antral gastritis, but no ulceration proper. He was given a trial of therapy to include Carafate and PPI medication, which did not markedly improve his symptoms. On that basis on April 30, 2017, he underwent laparoscopic cholecystectomy with intraoperative cholangiogram. The gallbladder was found to be subacutely inflamed with no evidence of stones and a normal cholangiogram. The following morning, he was feeling well as regard to the subcostal pain and posterior thoracic pain. He is tolerating a regular diet and is ready for discharge. DISCHARGE MEDICATIONS: Include: 1. Percocet 10/325 1-2 p.o. q.4 hours p.r.n. pain, #15. 2. Tylenol 650 mg p.o. q.6 hours for lesser pain. 3. He will continue with omeprazole 20 mg daily at home as he has or our prescription of Protonix 40 mg p.o. daily. He will continue with Carafate 1 g p.o. q.i.d. on empty stomach. FOLLOWUP PLAN: To return to see me in approximately a month. He is recommended to avoid lifting more than 20 pounds for the next 2 weeks. DISCHARGE DIAGNOSES: 1. Chronic acalculous cholecystitis, status post laparoscopic cholecystectomy with intraoperative cholangiogram, April 30, 2017. 2. Distant history of bleeding duodenal ulcer related to Motrin use. 3. Current findings of significant duodenitis and antral gastritis without ulceration. 4. History of traumatic amputation, right lower extremity (status post BK amputation). Lizbet Vallecillo MD JM/MODL /[id number] cc: Tom David DO Electronically Signed By: LIZBET VALLECILLO MD 05/02/17 1412 PATIENT NAME: ORIANA POSADAS DISCHARGE SUMMARY DATE OF : 72 REPORT #: [id number] PHYSICIAN: LIZBET VALLECILLO MD PCP: NO PRIMARY CARE PHYSICIAN REPORT IS CONFIDENTIAL AND NOT TO BE RELEASED WITHOUT AUTHORIZATION [facility] [address] [place] [id number] Signed MD Antonio Blount MD Copies: TOM DAVID BRADLEY MD WENDLER, SHELDON MD ~ Electronically Signed By: LIZBET VALLECILLO MD 05/02/17 1412 PATIENT NAME: ORIANA POSADAS DISCHARGE SUMMARY DATE OF : 72 REPORT #: [id number] PHYSICIAN: LIZBET VALLECILLO MD PCP: NO PRIMARY CARE PHYSICIAN REPORT IS CONFIDENTIAL AND NOT TO BE RELEASED WITHOUT AUTHORIZATION
== END 2017-05-01 10:45 | disposition home or self-care (01) | DRG 419 ==
LOC: ED 21:22 → MS 04-29 01:31
PROVIDERS: ADMIT Surgery
PROC: 0DB68ZX Excision of Stomach, Via Natural or Artificial Opening Endoscopic, Diagnostic (ICD-10-PCS; 2017-04-29)
PROC: 0FT44ZZ Resection of Gallbladder, Percutaneous Endoscopic Approach (ICD-10-PCS; principal; 2017-04-30 14:30)
PROC: BF101ZZ Fluoroscopy of Bile Ducts using Low Osmolar Contrast (ICD-10-PCS; principal; 2017-04-30 14:30)
DX: K80.00 Calculus of gallbladder with acute cholecystitis without obstruction (principal); K29.80 Duodenitis without bleeding; K29.70 Gastritis, unspecified, without bleeding; Z89.511 Acquired absence of right leg below knee
CPT/HCPCS: 00790; 74300; 78227; 80053; 83690; 85025; 94762; 96374; 96375; 96376; 99285; A9537; G0500; J0690; J1100; J1885; J2250; J2270; J2405; J2704; J2805; J3010; J7120; Q9967

== ENCOUNTER 2017-05-01 20:11 | Day surgery (SDC) | payer OTHER ==
[~2017-05-01] VITALS: Ht 182.9 cm; Wt 92.7 kg
[~2017-05-01 20:11] MED LIST changes: +PANTOPRAZOLE SO40 MG PO; +SUCRALFATE1 GM/10 ML PO
[2017-05-01] MEDS ORDERED: OXYCODONE-ACET1 EAC3 PO (22:58)
--- NOTE | 2017-05-02 14:12 | OR ---
[facility] [address], [place] [address] Signed DATE OF OPERATION: 05/01/2017 SURGEON: Lizbet Vallecillo MD PREOPERATIVE DIAGNOSIS: Dehiscence of umbilical wound with extrusion of portion omentum. POSTOPERATIVE DIAGNOSIS: Dehiscence of umbilical wound with extrusion of portion omentum. PROCEDURE: Repair of umbilical fascial defect with reduction of herniated omentum. ANESTHESIA: General endotracheal; Lizbet Patricio CRNA, and 20 mL of 0.25% Marcaine with epinephrine. INDICATION: This 47-year-old white man underwent laparoscopic cholecystectomy with intraoperative cholangiogram yesterday for acalculous cholecystitis. He was discharged this morning, doing quite well. It is notable that upon emergence from his anesthesia of the operation, he had coughing and straining before extubation causing palpable dehiscence of his incision, requiring additional anesthesia and fascial repair before even getting off the operative table. Careful reapproximation with 0 Vicryl suture of the fascial edge was undertaken. The fascial edge was quite kelley. The muscular wall of the abdomen is quite significant. He had no known straining or other problems after his second closure and was certainly doing well today by the time of the discharge. At home later this evening, he had some level of straining and then protrusion of fatty tissue, and presented to the emergency room where he was evaluated by Dr. Lima. He was found to have small amount of herniated omentum, therefore consistent with fascial edge dehiscence. He is taken to operation at this time to undergo repair of the fascial dehiscence and relocation of the omental tissue. He and his understand the risks of bleeding, infection, and other unforeseen complications and wished to proceed. FINDINGS: The omentum that was protruding was about 2 inches or so and was not ischemic. There was no protrusion of small bowel. Relocation of the omentum to the peritoneal cavity is without problem. The depths of the wound. All the Vicryl sutures appeared to be , none were retained at all. The fascial edges remained quite kelley and his muscular tone kelley as well. The defect of the fascial edges appeared to be oriented Electronically Signed By: LIZBET VALLECILLO MD 05/02/17 1412 PATIENT NAME: ORIANA POASDAS OPERATIVE REPORT DATE OF : 72 REPORT #: [id number] PHYSICIAN: LIZBET VALLECILLO MD PCP: NO PRIMARY CARE PHYSICIAN REPORT IS CONFIDENTIAL AND NOT TO BE RELEASED WITHOUT AUTHORIZATION [facility] [address], [place] [address] Signed transversely rather than vertically as one would expect. On that basis, the fascial defect was closed transversely with interrupted horizontal mattress of 2-0 PDS as well as a few interrupted 0 PDS. There were no complications and the security of the fascial defect appears quite good. DESCRIPTION OF PROCEDURE: The patient was brought to the operating room, given a general endotracheal anesthetic. Preoperative antibiotic Ancef was given. Sequential compression device stockings were used. The umbilical area was uncovered of its saline gauze over the omental area. Protrusion of some omentum, which appeared nonischemic was noted. The abdomen was prepared with a Betadine solution and draped sterilely. The omentum was protruding beneath a skin defect. The skin was opened more fully to the length of the incision, which was about an inch or so in length. A subcutaneous interrupted 3-0 Vicryl was divided revealing the herniated omentum. It was relocated into the peritoneal cavity without problem. Complete separation of fascial edges was noted. There appeared to be somewhat of a transverse fascial defect at this point, which was somewhat unexpected. Pete clamps were applied to the superior and inferior aspect of the fascial defect. There was no evidence of infection or sign that the small bowel had herniated or had any problem. The appearance of the fascial edges was showed them to be healthy and thick. Of note, they were somewhat inflamed as would be expected and appeared most appropriate to reapproximate the fascia in a transverse configuration. Interrupted 2-0 PDS suture in a horizontal mattress configuration was used to transversely reapproximate the fascia. Once sutures were fully secured, interrupted 0 PDS was used in interrupted fashion and three such sutures in total to more fully support the fascial closure. A 20 mL of 0.25% Marcaine with epinephrine was injected locally. The wound was irrigated. The subcutaneous tissue reapproximated with interrupted 3-0 Vicryl and skin closed with interrupted 3-0 Vicryl. Steri-Strips were applied as was a Mepilex silver sponge dressing and an OpSite. Blood loss was minimal. Complications none. Sponge, needle, and instruments counts reported as correct x3. MD CORNELIA Keene/FRANTZ /[id number] Electronically Signed By: LIZBET VALLECILLO MD 05/02/17 1412 PATIENT NAME: ORIANA POSADAS OPERATIVE REPORT DATE OF : 72 REPORT #: [id number] PHYSICIAN: LIZBET VALLECILLO MD PCP: NO PRIMARY CARE PHYSICIAN REPORT IS CONFIDENTIAL AND NOT TO BE RELEASED WITHOUT AUTHORIZATION [address] [address] Signed cc: Davon Priest MD Copies: DAVON PRIEST MD ~ Electronically Signed By: LIZBET VALLECILLO MD 05/02/17 1412 PATIENT NAME: ORIANA POSADAS OPERATIVE REPORT DATE OF : 72 REPORT #: [id number] PHYSICIAN: LIZBET VALLECILLO MD PCP: NO PRIMARY CARE PHYSICIAN REPORT IS CONFIDENTIAL AND NOT TO BE RELEASED WITHOUT AUTHORIZATION
--- NOTE | 2017-05-02 14:12 | HP ---
[facility] [place] [facility] [address] [place], [place] [address] Signed ADMISSION DATE: 05/01/2017 REASON FOR ADMISSION: Umbilical wound dehiscence and herniated omentum. HISTORY: This 47-year-old white man underwent laparoscopic cholecystectomy with intraoperative cholangiogram yesterday. This is for acalculous cholecystitis. He was discharged to home today. He was discharged to home with lifting restrictions of 20 pounds. He said this evening he had been essentially laying around too much of the day and had dinner at about 6 o'clock and when he got up, felt some pain and moisture at the umbilicus. Evaluation in the emergency room by Dr. Lima confirmed some herniated omentum. He has had no nausea, vomiting, or anything to suggest incarcerated bowel. He is admitted for further evaluation and care. PAST MEDICAL HISTORY: Includes traumatic amputation of his right leg 5 years ago. He uses prosthesis for that. He also has had duodenal ulceration in the past related to Motrin. Recent upper endoscopy did show duodenitis and antral gastritis, but no sign of ulcer. He did undergo a laparoscopic cholecystectomy with intraoperative cholangiogram yesterday. It is noted. PHYSICAL EXAMINATION: GENERAL: Pleasant white man who looks to be in no acute distress. He shows no evidence of nausea and has had no vomiting. Trachea is midline. CHEST: Clear. HEART: Regular without murmur. ABDOMEN: Slightly obese, but nondistended and rather muscular. A moist saline gauze is over the umbilical wound, which shows some herniated omentum. There is no sign of ischemic change to the omentum. EXTREMITY: On the right shows a below-knee amputation. Left side is normal. ASSESSMENT: The patient has had dehiscence of his umbilical fascial incision and herniation of omentum. He needs to return to the operating room, have reduction of the omentum and closure of the fascial layer once again. Discussed all of this with him in detail. The degree to which his significant musculature and muscle tension has contributed to dehiscence is uncertain. It is quite unlikely there is an infection or anything of that sort. He may benefit from a more elaborate closure technique. I would not generally recommend implantation of mesh under the circumstances. Electronically Signed By: LIZBET VALLECILLO MD 05/02/17 1412 PATIENT NAME: ORIANA POSADAS HISTORY AND PHYSICAL DATE OF : 72 REPORT #: [id number] PHYSICIAN: LIZBET VALLECILLO MD PCP: NO PRIMARY CARE PHYSICIAN REPORT IS CONFIDENTIAL AND NOT TO BE RELEASED WITHOUT AUTHORIZATION [facility] [place] [facility] [address] [place] [address] Signed MD CORNELIA Keene/INGEL /[id number] cc: CHRIS Leon Copies: TG BENITEZ ~ Electronically Signed By: LIZBET VALLECILLO MD 05/02/17 1412 PATIENT NAME: ORIANA POSADAS HISTORY AND PHYSICAL DATE OF : 72 REPORT #: [id number] PHYSICIAN: LIZBET VALLECILLO MD PCP: NO PRIMARY CARE PHYSICIAN REPORT IS CONFIDENTIAL AND NOT TO BE RELEASED WITHOUT AUTHORIZATION
== END 2017-05-02 00:50 | disposition home or self-care (01) ==
LOC: ED 20:11 → CCU 20:13 → ED 20:13 → DS 22:56 → CCU 05-02 00:50 → DS 05-02 00:50
PROVIDERS: Surgery
PROC: 0WQF0ZZ Repair Abdominal Wall, Open Approach (ICD-10-PCS; principal; 2017-05-01 22:00)
DX: K42.9 Umbilical hernia without obstruction or gangrene (principal); T81.31XA Disruption of external operation (surgical) wound, not elsewhere classified, initial encounter; G89.29 Other chronic pain; F17.220 Nicotine dependence, chewing tobacco, uncomplicated
CPT/HCPCS: 00192; 96374; 96375; 99285; J0330; J0690; J1100; J1885; J2250; J2405; J2704; J2710; J2765; J3010; J7120

== ENCOUNTER 2017-05-15 04:50 | Emergency (ER) | payer OTHER ==
[~2017-05-15] VITALS: Ht 182.9 cm; Wt 92.7 kg
[~2017-05-15 04:50] MED LIST changes: +OXYCODONE-ACET1 EAC3 PO
[2017-05-15] MEDS ORDERED: PRILOSEC OTC20 MG PO (05:21)
== END 2017-05-15 07:26 | disposition home or self-care (01) ==
LOC: ED 04:50
DX: R10.31 Right lower quadrant pain (principal); Z88.2 Allergy status to sulfonamides; Z88.8 Allergy status to other drugs, medicaments and biological substances; Z88.5 Allergy status to narcotic agent; Z79.899 Other long term (current) drug therapy
CPT/HCPCS: 74177; 80053; 83605; 83690; 85025; 96374; 96375; 99284; J1170; J2405; Q9967

== ENCOUNTER 2017-05-30 09:54 | Emergency (ER) | payer OTHER ==
[~2017-05-30] VITALS: Ht 182.9 cm; Wt 93.1 kg
[~2017-05-30 09:54] MED LIST changes: +PRILOSEC OTC20 MG PO
[2017-05-30] MEDS ORDERED: MOTRIN IB200 MG (10:08)
[2017-05-30] MEDS ORDERED: PERCOCET 5-3251 EACH PO (14:24)
== END 2017-05-30 14:53 | disposition home or self-care (01) ==
LOC: ED 09:54
DX: R10.31 Right lower quadrant pain (principal); Z88.6 Allergy status to analgesic agent; Z88.5 Allergy status to narcotic agent; Z79.899 Other long term (current) drug therapy
CPT/HCPCS: 74177; 80053; 81001; 83690; 85025; 96374; 96375; 99284; J1170; J1885; J2405; J7030; Q9967

== ENCOUNTER 2017-07-11 17:21 | Emergency (ER) | payer OTHER ==
[~2017-07-11] VITALS: Ht 182.9 cm; Wt 97.6 kg
[~2017-07-11 17:21] MED LIST changes: +MOTRIN IB200 MG; +PERCOCET 5-3251 EACH PO
[2017-07-11] MEDS ORDERED: KEFLEX500 MG PO (19:49)
[2017-07-11] MEDS ORDERED: NORCO 5-325 TA1 EACH PO (19:49)
== END 2017-07-11 20:04 | disposition home or self-care (01) ==
LOC: ED 17:21
DX: L03.032 Cellulitis of left toe (principal); Z23 Encounter for immunization; Z88.6 Allergy status to analgesic agent; Z88.5 Allergy status to narcotic agent; Z79.899 Other long term (current) drug therapy
CPT/HCPCS: 73660; 90471; 90715; 99283

== ENCOUNTER 2018-04-06 20:20 | Emergency (ER) | payer OTHER ==
[~2018-04-06] VITALS: Ht 182.9 cm; Wt 102.2 kg
[~2018-04-06 20:20] MED LIST changes: +KEFLEX500 MG PO
--- OUTSIDE RECORDS SUMMARY | 2018-04-06 20:22 | XMS ---
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 Deo VISIT COUNT (12 MO.) Aleisha Pfeiffer TOTAL 7 NOTE: Visits indicate total known visits. ED/UCC VISIT TRACKING (12 MO.) 04/06/2018 20:21 [facility] [place] TYPE: Emergency COMPLAINT: - ABD PAIN 07/11/2017 17:21 [facility] [place] TYPE: Emergency COMPLAINT: - POSS INFECTION DIAGNOSES: - Allergy status to analgesic agent status - Encounter for immunization - Pain in left toe(s) - Allergy status to narcotic agent status - Cellulitis of left toe - Other ad terminal makeup operator (current) drug therapy 05/30/2017 09:[address] [facility] [place] TYPE: Emergency COMPLAINT: - ABD PAIN3 DIAGNOSES: - Allergy status to analgesic agent status - Allergy status to narcotic agent status - Other fdc (current) drug therapy - Right lower quadrant pain 05/15/2017 04:50 [facility] [place] TYPE: Emergency COMPLAINT: - ABD PAIN,S/P CHELITA FRAUSTOE 05/01/17 DIAGNOSES: - Other fdc (current) drug therapy - Allergy status to other drugs, medicaments and biological substances status - Allergy status to narcotic agent status - Right lower quadrant pain - Allergy status to sulfonamides status 05/01/2017 20:12 [facility] [place] TYPE: Emergency COMPLAINT: - INCISIONAL WOUND DEHISCENCE 04/28/2017 21:22 [facility] [place] TYPE: Emergency COMPLAINT: - ABD PAIN 04/25/2017 09:[address] [facility] [place] TYPE: Emergency COMPLAINT: - UPPER ABD PAIN DIAGNOSES: - Other nonmedicinal substance allergy status - Allergy status to other drugs, medicaments and biological substances status - Allergy status to analgesic agent status - Right upper quadrant pain - Allergy status to narcotic agent status INPATIENT VISIT TRACKING (12 MO.) No inpatient visits to display in this time frame [email or web address]
[2018-04-07] MEDS ORDERED: LOMOTIL TABLET1 EACH PO (00:26)
== END 2018-04-07 00:37 | disposition home or self-care (01) ==
LOC: ED 20:20
PROC: 4A0D7LZ Measurement of Urinary Volume, Via Natural or Artificial Opening (ICD-10-PCS; principal; 2018-04-06)
DX: R10.12 Left upper quadrant pain (principal); R10.31 Right lower quadrant pain; Z89.511 Acquired absence of right leg below knee; Z90.49 Acquired absence of other specified parts of digestive tract; Z88.6 Allergy status to analgesic agent; Z88.5 Allergy status to narcotic agent; Z88.8 Allergy status to other drugs, medicaments and biological substances; Z79.899 Other long term (current) drug therapy
CPT/HCPCS: 51798; 74177; 80053; 81001; 83690; 85025; 99284-25; C9113; J1170; J2270; J2405; J7030; Q9967

== ENCOUNTER 2019-01-30 18:24 | Emergency (ER) | payer OTHER, MEDICARE ==
[~2019-01-30] VITALS: Ht 182.9 cm; Wt 102.2 kg
--- OUTSIDE RECORDS SUMMARY | ~2019-01-30 | XMS | Encounter Summary ---
Demographics + + + | Address | [address] | | | [place] [address] | + + + | Home Phone | | + + + | Preferred Language | Unknown | + + + | Marital Status | | + + + | Episcopal Affiliation | Unknown | + + + | Race | White | + + + | Ethnic Group | Not or | + + + Author + + + | Author | [facility] | + + + | Organization | [facility] | + + + | Address | Unknown | + + + | Phone | Unavailable | + + + Support + + +---------+ + | Name | Relationship | Address | Phone | + + +---------+ + | Rosalina Martinez | ECON | Unknown | | + + +---------+ + Care Team Providers + +------+ + | Care Set Up Mechanic Automatic Line Name | Role | Phone | + +------+ + | Mohan Bullock PATENTED HOGSHEAD ASSEMBLER | PCP | | + +------+ + Encounter Details +--------+ + + + + | Date | Type | Department | Care Team | Description | +--------+ + + + + | 09/15/ | Abstract | [facility] | Daniel Brasher, | | | 2010 | | [place] [address] [address] | [place] | | | | | [address] | | | | | | Mailcode: OC8D | | | | | | [facility] | | | | | | and Healing, | | | | | | [address] | | | | | | [place], [place] | | | | | | [address] | | | | | | [phone] | | | +--------+ + + + [...] as of this encounter Plan of Treatment Not on filedocumented as of this encounter Visit Diagnoses Not on filedocumented in this encounter"
--- OUTSIDE RECORDS SUMMARY | ~2019-01-30 | XMS | Encounter Summary ---
Demographics + + + | Address | [address] | | | [place] [address] | + + + | Home Phone | | + + + | Preferred Language | Unknown | + + + | Marital Status | Single | + + + | Taoism Affiliation | Unknown | + + + | Race | Unknown | + + + | Ethnic Group | Unknown | + + + Author + + + | Author | [facility] | | | and [place] | + + + | Organization | [facility] | | | and [place] | + + + | Address | Unknown | + + + | Phone | Unavailable | + + + Support + + +---------+ + | Name | Relationship | Address | Phone | + + +---------+ + | Lincoln Martinez | ECON | Unknown | | + + +---------+ + | Lincoln Martinez | ECON | Unknown | | + + +---------+ + | Lincoln Martinez | ECON | Unknown | | + + +---------+ + Care Team Providers + +------+ + | Care Video Surveillance Technician Name | Role | Phone | + +------+ + PCP | Unavailable | + +------+ + Encounter Details +--------+ + + + + | Date | Type | Department | Care Team | Description | +--------+ + + + + | 10/08/ | Hospital | [facility] | | | | 1990 | Encounter | SYSTEM GENERIC OP | | | | | | CONVERSION [address] | | | | | | [address] [place], [place] | | | | | | [address] | | | | | | [phone] | | | +--------+ + + + [...]
--- OUTSIDE RECORDS SUMMARY | ~2019-01-30 | XMS | Encounter Summary ---
Demographics + + + | Address | [address] | | | [place] [address] | + + + | Home Phone | | + + + | Preferred Language | Unknown | + + + | Marital Status | | + + + | Mandaeism Affiliation | Unknown | + + + | Race | White | + + + | Ethnic Group | Not or | + + + Author + + + | Author | [facility] | + + + | Organization | [facility] | + + + | Address | Unknown | + + + | Phone | Unavailable | + + + Support + + +---------+ + | Name | Relationship | Address | Phone | + + +---------+ + | Rosalina Martinez | ECON | Unknown | | + + +---------+ + Care Team Providers + +------+ + | Care Highway Landscape Architect Name | Role | Phone | + +------+ + | Mohan Bullock TEACHER [employer] | PCP | | + +------+ + Reason for Visit + + + | Reason | Comments | + + + | Referral | Right below knee amputation | + + + Encounter Details +--------+ + + + + | Date | Type | Department | Care Team | Description | +--------+ + + + + | 01/13/ | Abstract | Orthopaedics at | Note, Orthopedics | Referral (Right | | 2018 | | [facility] [address] [facility] | Clinic | below knee | | | | Ave Mailcode: CH12A | | amputation ) | | | | [facility] | | | | | | and Healing, | | | | | | Building | | | | | | Floor [place], [place] | | | | | | [address] | | | | | | [phone] | | | +--------+ + + + [...] + + documented as of this encounter Progress Notes Krupa Alan - 01/13/2018 12:38 PM PSTFormatting of this note might be different from the or iginal. Orthopaedics New Patient Record Check List Procedure Comments Date requested Records/Imaging received? If so, what format? Where? What would you like to be seen for (body part and laterality)? Revision of Right knee amputation Media Tab DOI, if applicable? 10/03/2011 Prior Surgery? Yes/[facility]/10/05/2014 Have you seen anyone for this yet? Yes, when: 08/2013; where: [facility] & [facility] fracture clinic MRI Yes, when: 10/30/2017 pt does not recall other dates; where: [facility] & [facility] VPN-Requested [facility] Calling [facility] Diagnostic Reports Media Tab Niesha from [facility] stated no imaging has been done or ever ordered for patient X-Ray Yes, when: pt does not recall; where: [facility] Calling [facility] CT No Ultrasound No Other imaging [facility] 2012 Insurance to be billed per patient WC Is this a W/C injury? yes If YES, please also complete: .[email or web address] inside referral For Out of State claims, please make patient aware that we do not take Out of State Worker' s Comp unless their claim adjuster can secure [place] rates. Please advise patient to work directly with their claim adjuster and if any questions their claim adjuster can call us back. Are you a current smoker or tobacco user? yes If YES, please let patient know that they must be 4 weeks smoke/tobacco-free, tested and do cumented by PCP before having a surgical consult. Height & Weight, if unable to locate in notes or chart. Last recorded patient height: No data found for Ht No data found for this vital: BMI Patient reported height: 6'0 Patient reported weight: 225 Note: If over provider BMI preference, for REVIEW. Are you diabetic? no No results found for: A1C Patient reported A1C: Do you have a referring provider? yes who: Dr. Kareem Tsai How far will you be traveling for this appointment? 4 hours Note: If patient traveling greater than 1 hour, consider coordinating any addition al testing or appointments. Medical Review needed? yes If yes, create referral Reminders: ? Ask patient if they d like to [facility] ? Don t forget to pull in CareEveryWhere Additional Comments: Patient would like AM appointment documented in this encounter Plan of Treatment Not on filedocumented as of this encounter Visit Diagnoses Not on filedocumented in this encounter"
--- OUTSIDE RECORDS SUMMARY | ~2019-01-30 | XMS | Encounter Summary ---
Demographics + + + | Address | [address] | | | [place] [address] | + + + | Home Phone | | + + + | Preferred Language | Unknown | + + + | Marital Status | Single | + + + | Yazidism Affiliation | Unknown | + + + | Race | Unknown | + + + | Ethnic Group | Unknown | + + + Author + + + | Author | [facility] | | | and [place] | + + + | Organization | [facility] | | | and [...] Team Providers + +------+ + | Care Aligner Name | Role | Phone | + +------+ + PCP | Unavailable | + +------+ + Encounter Details +--------+ + + + + | Date | Type | Department | Care Team | Description | +--------+ + + + + | 05/22/ | Hospital | [facility] | Conversion | Pain | | 2014 | Encounter | [address]VERSION [address] | Transaction, | | | | | [address] | Provider Unknown | | | | | [place], [place] | [phone] | | | | | [address] | | | | | | [phone] | | | +--------+ + + + [...] Not on filedocumented as of this encounter Procedures + +--------+ + + + | Procedure Name | Priori | Date/Time | Associated Diagnosis | Comments | | | ty | | | | + +--------+ + + + | MRI SHOULDER RIGHT | Routin | 02/05/2013 | | Results for this | | WO CONTRAST | e | 1:13 AM | | procedure are in the | | | | PST | | results section. | + +--------+ + + + documented in this encounter Results MRI Shoulder Right wo Contrast (02/05/2013 1:13 AM PST) + + | Specimen | + + | | + + + + + | Narrative | Performed At | + + + | This is a non-reportable procedure without a radiologist report and | | | is used for image storage only | | + + + + + | Procedure Note | + + | Clifford Yun Conversion - 10/10/2018 7:03 PM PDT This is a non-reportable procedure | | without a radiologist report and isused for image storage only | + + documented in this encounter Visit Diagnoses + + | Diagnosis | + + | Pain Generalized pain | + + documented in this encounter"
--- OUTSIDE RECORDS SUMMARY | ~2019-01-30 | XMS | Clinical Summary ---
Demographics + + + | Address | [address] | | | [place] [address] | + + + | Home Phone | | + + + | Preferred Language | Unknown | + + + | Marital Status | Single | + + + | Latter Day Affiliation | Unknown | + + + | Race | Unknown | + + + | Ethnic Group | Unknown | + + + Author + + + | Author | [facility] | | | and [place] | + + + | Organization | [facility] | | | and [...] Team Providers + +------+ + | Care Seismographer Name | Role | Phone | + +------+ + | Erica Wise MD | PCP | | + +------+ + Allergies + + + + + + | Active Allergy | Reactions | Severity | Noted | Comments | | | | | Date | | + + + + + + | Aspirin | Other (See Comments) | Medium | 02/22/20 | Intestine rupture | | | | | 18 | | + + + + + + | Bee Venom | Anaphylaxis | High | 02/22/20 | | | | | | 18 | | + + + + + + | Acetaminophen-Aspiri | Other (See Comments) | Medium | 02/22/20 | Intestine rupture | | n Buffered | | | 18 | | + + + + + + | Ibuprofen | Other (See Comments) | Medium | 02/22/20 | Intestine rupture | | | | | 18 | | + + + + + + | Naproxen | Other (See Comments) | Medium | 02/22/20 | Intestine rupture | | | | | 18 | | + + + + + + | Tramadol | Other (See Comments) | Medium | 02/22/20 | Per referral | | | | | 18 | | + + + + + + Medications + + + +---------+------+------+-------+ | Medication | Sig | Dispensed | Refills | Star | End | Statu | | | | | | t | Date | s | | | | | | Date | | | + + + +---------+------+------+-------+ | MULTIPLE VITAMIN | Take 1 tablet by | | 0 | 12/2 | | Activ | | PO | mouth daily. | | | 8/20 | | e | | | | | | 18 | | | + + + +---------+------+------+-------+ | acetaminophen | Take 325 mg by mouth | | 0 | 12/2 | | Activ | | (TYLENOL) 325 mg | every 4 (four) | | | 8/20 | | e | | tablet | hours as needed for | | | 18 | | | | | Pain. | | | | | | + + + +---------+------+------+-------+ | albuterol 1.25 | Take 1 ampule by | | 0 | 12/2 | | Activ | | mg/3 mL nebulizer | nebulization as | | | 8/20 | | e | | solution | needed for Wheezing. | | | 18 | | | + + + +---------+------+------+-------+ | EPINEPHrine | Inject 0.3 mg into | | 0 | 12/2 | | Activ | | auto-injector 0.3 | the muscle as | | | 8/20 | | e | | mg/0.3 mL injection | needed. | | | 18 | | | + + + +---------+------+------+-------+ | oxyCODONE 10 MG | Take by mouth as | | 0 | 07/1 | | Activ | | TABS | needed. | | | 20 | | e | | | | | | 19 | | | + + + +---------+------+------+-------+ Active Problems Not on file Family History + + +------+ + | Medical History | Relation | Name | Comments | + + +------+ + | defects | Maternal | | lung, bone | | | Grandfath | | | | | er | | | + + +------+ + | Cancer | Mother | | cervical | + + +------+ + | Diabetes, NIDDM | Mother | | | + + +------+ + + +------+ + + | Relation | Name | Status | Comments | + +------+ + + | Father | | Alive | | + +------+ + + | Maternal Grandfather | | | | + +------+ + + | Maternal Grandfather | | | | + +------+ + + | Maternal Grandmother | | | | + +------+ + + | Mother | | Alive | | + +------+ + + | Mother | | | | + +------+ + + Social History + +-------+ +--------+------+ [...] recent travel history available. | + + Last Filed Vital Signs + + + + + | Vital Sign | Reading | Time Taken | Comments | + + + + + | Blood Pressure | 129/91 | 09/10/2018 9:06 AM | | | | | PDT | | + + + + + | Pulse | 73 | 09/10/2018 9:06 AM | | | | | PDT | | + + + + + | Temperature | 37 C (98.6 F) | 02/24/2018 10:21 AM | | | | | PST | | + + + + + | Respiratory Rate | 16 | 09/10/2018 9:06 AM | | | | | PDT | | + + + + + | Oxygen Saturation | - | - | | + + + + + | Inhaled Oxygen | - | - | | | Concentration | | | | + + + + + | Weight | 95.7 kg (211 lb) | 09/10/2018 9:06 AM | | | | | PDT | | + + + + + | Height | 182.9 cm (6') | 09/10/2018 9:06 AM | | | | | PDT | | + + + + + | Body Mass Index | 28.62 | 09/10/2018 9:06 AM | | | | | PDT | | + + + + + Plan of Treatment + + + + + | Health Maintenance | Due Date | Last Done | Comments | + + + + + | Vaccine: | | | | | Dtap/Tdap/Td (1 - | 1 | | | | Tdap) | | | | + + + + + | Vaccine: Influenza | | | | | (#1) | 9 | | | + + + + + Results Not on filefrom Last 3 Months"
--- OUTSIDE RECORDS SUMMARY | ~2019-01-30 | XMS | Encounter Summary ---
Demographics + + + | Address | [address] | | | [place] [address] | + + + | Home Phone | | + + + | Preferred Language | Unknown | + + + | Marital Status | | + + + | Sabianist Affiliation | Unknown | + + + | Race | White | + + + | Ethnic Group | Not or | + + + Author + + + | Author | [facility] | + + + | Organization | [facility] | + + + | Address | Unknown | + + + | Phone | Unavailable | + + + Support + + +---------+ + | Name | Relationship | Address | Phone | + + +---------+ + | Rosalina Martinez | ECON | Unknown | | + + +---------+ + Care Team Providers + +------+ + | Care Public Utilities Sales Representative Name | Role | Phone | + +------+ + | Mohan Bullock EXERCISE TEACHER | PCP | | + +------+ + Encounter Details +--------+ + + + + | Date | Type | Department | Care Team | Description | +--------+ + + + + | 09/15/ | Abstract | [facility] | Daniel Brasher, | | | 2010 | | [place] [address] [address] | [place] | | | | | [address] | | | | | | Mailcode: OC8D | | | | | | [facility] | | | | | | and Healing, | | | | | | [address] | | | | | | [place], [place] | | | | | | [address] | | | | | | [phone] | | | +--------+ + + + [...]
--- OUTSIDE RECORDS SUMMARY | ~2019-01-30 | XMS | Encounter Summary ---
Demographics + + + | Address | [address] | | | [place] [address] | + + + | Home Phone | | + + + | Preferred Language | Unknown | + + + | Marital Status | Single | + + + | Alevism Affiliation | Unknown | + + + | Race | Unknown | + + + | Ethnic Group | Unknown | + + + Author + + + | Author | [facility] | | | and [place] | + + + | Organization | [facility] | | [...] Team Providers + +------+ + | Care Bolt Labeler Name | Role | Phone | + +------+ + PCP | Unavailable | + +------+ + Encounter Details +--------+ + + + + | Date | Type | Department | Care Team | Description | +--------+ + + + + | 05/22/ | Hospital | [facility] | Conversion | Pain in joint, lower | | 1994 | Encounter | CONVERSION [address] | Transaction, | leg | | | | [address] | Provider Unknown | | | | | [place], [place] | [phone] | | | | | [address] | | | | | | [phone] | | | +--------+ + + + [...] filedocumented as of this encounter Visit Diagnoses + + | Diagnosis | + + | Pain in joint, lower leg | + + documented in this encounter"
--- OUTSIDE RECORDS SUMMARY | ~2019-01-30 | XMS | Encounter Summary ---
Demographics + + + | Address | [address] | | | [place] [address] | + + + | Home Phone | | + + + | Preferred Language | Unknown | + + + | Marital Status | Single | + + + | Yarsani Affiliation | Unknown | + + + | Race | Unknown | + + + | Ethnic Group | Unknown | + + + Author + + + | Author | [facility] | | | and [place] | + + + | Organization | [facility] | | | [...] Team Providers + +------+ + | Care Candle Wrapping Machine Operator Name | Role | Phone | + +------+ + PCP | Unavailable | + +------+ + Encounter Details +--------+ + + + + | Date | Type | Department | Care Team | Description | +--------+ + + + + | 05/22/ | Hospital | [facility] | Conversion | Pain | | 2014 | Encounter | CONVERSION [address] | Transaction, | | | | | [address] | Provider Unknown | | | | | [place], [place] | [phone] | | | | | [address] | | | | | | [phone] | | | +--------+ + + + [...] | + +--------+ + + + | XR SHOULDER RIGHT 2 | Routin | 02/02/2013 | | Results for this | | + VW | e | 1:15 AM | | procedure are in the | | | | PST | | results section. | + +--------+ + + + documented in this encounter Results XR Shoulder Right 2 + Vw (02/02/2013 1:15 AM PST) + + | Specimen | + + | | + + + + + | Narrative | Performed At | + + + | This is a non-reportable procedure without a radiologist report and | | | is used for image storage only | | + + + + + | Procedure Note | + + | Clifford Yun David - 10/10/2018 7:03 PM PDT This is a non-reportable procedure | | without a radiologist report and isused for image storage only | + + documented in this encounter Visit Diagnoses + + | Diagnosis | + + | Pain Generalized pain | + + documented in this encounter"
--- OUTSIDE RECORDS SUMMARY | ~2019-01-30 | XMS | Clinical Summary ---
Demographics + + + | Address | [address] | | | [place] [address] | + + + | Home Phone | | + + + | Preferred Language | Unknown | + + + | Marital Status | Single | + + + | Orthodox Affiliation | Unknown | + + + | Race | Unknown | + + + | Ethnic Group | Unknown | + + + Author + + + | Author | [facility] (Historical as of | | | 10-11-18) | + + + | Organization | [facility] (Historical as of | | | 10-11-18) | + + + | Address | [...] Team Providers + +------+ + | Care Furniture Sales Consultant Name | Role | Phone | + +------+ + | Erica Wise MD | PP | | + +------+ + Allergies + [...] | + + + + + + Current Medications + + +-------+---------+------+------+-------+ | Prescription | Sig. | Disp. | Refills | Star | End | Statu | | | | | | t | Date | s | | | | | | Date | | | + + +-------+---------+------+------+-------+ | acetaminophen | Take 325 mg by mouth | | | | | Activ | | (TYLENOL) 325 MG | every 4 (four) | | | | | e | | tablet | hours as needed for | | | | | | | | Pain. | | | | | | + + +-------+---------+------+------+-------+ | Multiple Vitamin | Take 1 tablet by | | | | | Activ | | (DAILY VITAMIN PO) | mouth daily. | | | | | e | + + +-------+---------+------+------+-------+ | albuterol | Take 1 ampule by | | | | | Activ | | (ACCUNEB) 1.25 | nebulization as | | | | | e | | MG/3ML nebulizer | needed for Wheezing. | | | | | | | solution | | | | | | | + + +-------+---------+------+------+-------+ | EPINEPHrine | Inject 0.3 mg into | | | | | Activ | | (EPIPEN 2-BECCA) 0.3 | the muscle as | | | | | e | | MG/0.3ML | needed. | | | | | | | auto-injector | | | | | | | + + +-------+---------+------+------+-------+ | oxycodone 10 MG | Take by mouth as | | | | | Activ | | tablet | needed. | | | | | e | + + +-------+---------+------+------+-------+ Active Problems Not on file Family History + + +------+ + | Medical History | Relation | Name | Comments | + + +------+ + | defects | Maternal | | lung, bone | | | Grandfath | | | | | er | | | + + +------+ + | Cancer | Mother | | cervical | + + +------+ + | Diabetes type II | Mother | | | + + [...] Alive | | + +------+ + + Social History + +-------+ +--------+------+ | Tobacco Use | Types | Packs/Day | Years | Date | | | | | Used | | + +-------+ +--------+------+ | Never Smoker | | | | | + +-------+ +--------+------+ + +---+---+---+ | Smokeless Tobacco: | | | | | Current User | | | | + +---+---+---+ + + +---------+ + | Alcohol Use | Drinks/We | oz/Week | Comments | | | ek | | | + + +---------+ + | Yes | | | rarely | + + +---------+ + + + + | Sex Assigned at | Date Recorded | | | | + + + | Not on file | | + + + Last Filed Vital Signs + + + + | Vital Sign | Reading | Time Taken | + + + + | Blood Pressure | 129/91 | 09/10/2018 9:01 AM PDT | + + + + | Pulse | 73 | 09/10/2018 9:01 AM PDT | + + + + | Temperature | 37 C (98.6 F) | 02/24/2018 10:15 AM PST | + + + + | Respiratory Rate | 16 | 09/10/2018 9:01 AM PDT | + + + + | Oxygen Saturation | 99% | 09/10/2018 9:01 AM PDT | + + + + | Inhaled Oxygen | - | - | | Concentration | | | + + + + | Weight | 95.7 kg (211 lb) | 09/10/2018 9:01 AM PDT | + + + + | Height | 182.9 cm (6') | 09/10/2018 9:01 AM PDT | + + + + | Body Mass Index | 28.62 | 09/10/2018 9:01 AM PDT | + + + + Plan of Treatment [...] filefrom Last 3 Months Insurance + +--------+ +------+-------+ + | Payer | Benefi | Subscriber | Type | Phone | Address | | | t Plan | ID | | | | | | / | | | | | | | Group | | | | | + +--------+ +------+-------+ + | MEDICARE | MEDICA | [id number] | | | [address] | | | RE | | | | [place] [address] | | | IP-OP | | | | | + +--------+ +------+-------+ + | MEDICAID | [place] | [id number] | | | [address] | | | N | | | | [place] | | | [place] | | | | [address] | | | [employer] | | | | | + +--------+ +------+-------+ + + +--------+ +--------+ + + | Guarantor Name | Accoun | Relation to | Date | Phone | Billing Address | | | t Type | Patient | of | | | | | | | | | | + +--------+ +--------+ + + | JAN MARTINEZ | Person | Self [birth year] | Home: | [address] | | | al/Fam | | 1970 | +- | [place] | | | marc | | | [address] | [address] | + +--------+ +--------+ + + | JAN MARTINEZ | Worker | Self | [birth year] | Home: | [address] | | | s Comp | | 1970 | +- | [place] | | | | | | [address] | [address] | + +--------+ +--------+ + +"
--- OUTSIDE RECORDS SUMMARY | ~2019-01-30 | XMS | Encounter Summary ---
Demographics + + + | Address | [address] | | | [place] [address] | + + + | Home Phone | | + + + | Preferred Language | Unknown | + + + | Marital Status | Single | + + + | Jehovah'S Witness Affiliation | Unknown | + + + | Race | Unknown | + + + | Ethnic Group | Unknown | + + + Author + + + | Author | [facility] | | | and [place] | + + + | Organization | [facility] | | | [...] Team Providers + +------+ + | Care Fruit Tester Name | Role | Phone | + +------+ + PCP | Unavailable | + +------+ + Encounter Details +--------+ + + + + | Date | Type | Department | Care Team | Description | +--------+ + + + + | 05/22/ | Hospital | [facility] | Conversion | Pain | | 2014 | Encounter | CONVERSION [address] | Transaction, | | | | | [address] | Provider Unknown | | | | | [place], [place] | [phone] | | | | | [address] | | | | | | [phone] | | | +--------+ + + + [...]
--- OUTSIDE RECORDS SUMMARY | ~2019-01-30 | XMS | Encounter Summary ---
Demographics + + + | Address | [address] | | | [place] [address] | + + + | Home Phone | | + + + | Preferred Language | Unknown | + + + | Marital Status | Single | + + + | Latter-Day Affiliation | Unknown | + + + | Race | Unknown | + + + | Ethnic Group | Unknown | + + + Author + + + | Author | [facility] | | | and [place] | + + + | Organization | [facility] | | | [...] Team Providers + +------+ + | Care Teradata Developer Name | Role | Phone | + +------+ + PCP | Unavailable | + +------+ + Encounter Details +--------+ + + + + | Date | Type | Department | Care Team | Description | +--------+ + + + + | 05/29/ | Hospital | [facility] | Conversion | Other tear of | | 1995 | Encounter | [facility] | Transaction, | cartilage or | | | | OUTPATIENT | Provider Unknown | meniscus of knee, | | | | PROCEDURES [address] | [phone] | current | | | | [address] | | | | | | [place], [place] | | | | | | [address] | | | | | | [phone] | | | +--------+ + + + [...] + | Diagnosis | + + | Other tear of cartilage or meniscus of knee, current | + + documented in this encounter"
--- OUTSIDE RECORDS SUMMARY | ~2019-01-30 | XMS | Encounter Summary ---
Demographics + + + | Address | [address] | | | [place] [address] | + + + | Home Phone | | + + + | Preferred Language | Unknown | + + + | Marital Status | Single | + + + | Mu-Ism Affiliation | Unknown | + + + | Race | Unknown | + + + | Ethnic Group | Unknown | + + + Author + + + | Author | [facility] | | | and [place] | + + + | Organization | [facility] | | [...] Team Providers + +------+ + | Care Automotive Shop Foreman Name | Role | Phone | + [...] Provider Unknown | | | | | [place] | [phone] | | | | | [address] | | | | | | [phone] | | | +--------+ + + + [...]
--- OUTSIDE RECORDS SUMMARY | ~2019-01-30 | XMS | Encounter Summary ---
Demographics + + + | Address | [address] | | | [place] [address] | + + + | Home Phone | | + + + | Preferred Language | Unknown | + + + | Marital Status | Single | + + + | Zoroastrianism Affiliation | Unknown | + + + | Race | Unknown | + + + | Ethnic Group | Unknown | + + + Author + + + | Author | [facility] | | | and [place] | + + + | Organization | [facility] | | | [...] Team Providers + +------+ + | Care Human Resources Advisor Name | Role | Phone | + +------+ + PCP | Unavailable | + +------+ + Encounter Details +--------+ + + + + | Date | Type | Department | Care Team | Description | +--------+ + + + + | 04/07/ | Hospital | [facility] | Mak Mooney, | | | 1996 - | Encounter | [facility] [address] | [address] | | | | | [address] | [place] [address] | | | 04/08/ | | [place], [place] | [phone] | | | 1996 | | [address] | | | | | | [phone] | | | +--------+ + + + [...]
--- OUTSIDE RECORDS SUMMARY | ~2019-01-30 | XMS | Encounter Summary ---
Demographics + + + | Address | [address] | | | [place] [address] | + + + | Home Phone | | + + + | Preferred Language | Unknown | + + + | Marital Status | Single | + + + | Judaism Affiliation | Unknown | + + + | Race | Unknown | + + + | Ethnic Group | Unknown | + + + Author + + + | Author | [facility] | | | and [place] | + + + | Organization | [facility] | | | [...] Team Providers + +------+ + | Care Driver/Merchandiser Name | Role | Phone | + +------+ + PCP | Unavailable | + +------+ + Encounter Details +--------+ + + + + | Date | Type | Department | Care Team | Description | +--------+ + + + + | 10/08/ | Hospital | [facility] | | | | 1990 | Encounter | SYSTEM GENERIC OP | | | | | | CONVERSION [address] | | | | | | [address] [place], [place] | | | | | | [address] | | | | | | [phone] | | | +--------+ + + + [...]
--- OUTSIDE RECORDS SUMMARY | ~2019-01-30 | XMS | Encounter Summary ---
Demographics + + + | Address | [address] | | | [place] [address] | + + + | Home Phone | | + + + | Preferred Language | Unknown | + + + | Marital Status | Single | + + + | Church Affiliation | Unknown | + + + | Race | Unknown | + + + | Ethnic Group | Unknown | + + + Author + + + | Author | [facility] | | | and [place] | + + + | Organization | [facility] | | [...] Team Providers + +------+ + | Care Forest Aide Name | Role | Phone | + +------+ + PCP | Unavailable | + +------+ + Encounter Details +--------+ + + + + | Date | Type | Department | Care Team | Description | +--------+ + + + + | 02/24/ | Orders Only | [facility] | Michelle Grant | | | 2018 | | [address] | Suzi Gamez MD | | | | | [place], [place] | [address] | | | | | [address] | [place] [address] | | | | | [phone] | [phone] | | | | | | | [...] | + +--------+ + + + | HIV 1 AND 2 ANTIBODY | Routin | 02/24/2018 | | Results for this | | DIFFERENTIATION | e | 11:13 AM | | procedure are in the | | | | PST | | results section. | + +--------+ + + + | HEPATITIS C, | Routin | 02/24/2018 | | Results for this | | FIBROSURE PANEL | e | 11:13 AM | | procedure are in the | | | | PST | | results section. | + +--------+ + + + | ALPHA FETOPROTEIN, | Routin | 02/24/2018 | | Results for this | | TUMOR MARKER | e | 11:13 AM | | procedure are in the | | | | PST | | results section. | + +--------+ + + + | HEPATITIS B CORE AB, | Routin | 02/24/2018 | | Results for this | | IGM | e | 11:13 AM | | procedure are in the | | | | PST | | results section. | + +--------+ + + + | HEPATITIS B SURFACE | Routin | 02/24/2018 | | Results for this | | AB | e | 11:13 AM | | procedure are in the | | | | PST | | results section. | + +--------+ + + + | HEPATITIS B SURFACE | Routin | 02/24/2018 | | Results for this | | AG | e | 11:13 AM | | procedure are in the | | | | PST | | results section. | + +--------+ + + + documented in this encounter Results Hepatitis C, Fibrosure Panel (02/24/2018 11:13 AM PST) + + + + + + | Component | Value | Ref Range | Performed | Pathologist | | | | | At | Signature | + + + + + + | HCV | 0.44 (H)Comment: | | EXTERNAL | | | FibroSURE | Reference range: 0.00 to | | LAB | | | Results | 0.21 | | | | + + + + + + | FIBROSURE | SEE COMMENTComment: | | EXTERNAL | | | STAGE | RESULT:F1-F2 | | LAB | | + + + + + + | Necroinflam | 0.39 (H)Comment: | | EXTERNAL | | | mat | Reference range: 0.00 to | | LAB | | | Activity | 0.17 | | | | | Score | | | | | + + + + + + | Necroinflam | SEE COMMENTComment: | | EXTERNAL | | | mat | RESULT:A1-A2 | | LAB | | | Activity | | | | | | Grade | | | | | + + + + + + | Alpha | 288 (H)Comment: | mg/dL | EXTERNAL | | | 2-Macroglob | Reference range: 110 to | | LAB | | | Susannah traore | 276 | | | | + + + + + + | Haptoglobin | 103Comment: Reference | mg/dL | EXTERNAL | | | | range: 34 to 200 | | LAB | | + + + + + + | Apolipoprot | 154Comment: Reference | mg/dL | EXTERNAL | | | ein A-1 | range: 101 to 178 | | LAB | | + + + + + + | Bilirubin, | 0.3Comment: Reference | mg/dL | EXTERNAL | | | Total | range: 0.0 to 1.2 | | LAB | | + + + + + + | Gamma | 162 (H)Comment: | [iU]/L | EXTERNAL | | | Glutamyl | Reference range: 0 to 65 | | LAB | | | Transferase | | | | | + + + + + + | ALT (SGPT) | 58 (H)Comment: Reference | [iU]/L | EXTERNAL | | | P5P | range: 0 to 55 | | LAB | | + + + + + + | Interpretat | (See Below)Comment: | | EXTERNAL | | | ion: | Quantitative results of | | LAB | | | | 6 biochemical tests are | | | | | | analyzed usinga | | | | | | computational algorithm | | | | | | to provide a | | | | | | quantitative | | | | | | surrogatemarker | | | | | | (0.0-1.0) for liver | | | | | | fibrosis (METAVIR F0-F4) | | | | | | and | | | | | | fornecroinflammatory | | | | | | activity (METAVIR | | | | | | A0-A3). | | | | + + + + + + | Fibrosis | (See Below)Comment: | | EXTERNAL | | | Scoring: | <0.21 = Stage F0 - No | | LAB | | | | fibrosis0.21 - 0.27 = | | | | | | Stage F0 - F10.27 - 0.31 | | | | | | = Stage F1 - Portal | | | | | | fibrosis0.31 - 0.48 = | | | | | | Stage F1 - F20.48 - 0.58 | | | | | | = Stage F2 - Bridging | | | | | | fibrosis with few | | | | | | septa0.58 - 0.72 = Stage | | | | | | F3 - Bridging fibrosis | | | | | | with many septa0.72 - | | | | | | 0.74 = Stage F3 - F4 | | | | | | >0.74 = Stage F4 - | | | | | | Cirrhosis | | | | + + + + + + | Necroinflam | (See Below)Comment: | | EXTERNAL | | | m Activity | <0.17 = Grade A0 - No | | LAB | | | Scoring: | Activity0.17 - 0.29 = | | | | | | Grade A0 - A10.29 - 0.36 | | | | | | = Grade A1 - Minimal | | | | | | activity0.36 - 0.52 = | | | | | | Grade A1 - A20.52 - 0.60 | | | | | | = Grade A2 - Moderate | | | | | | activity0.60 - 0.62 = | | | | | | Grade A2 - A3 | | | | | | >0.62 = Grade A3 - | | | | | | Severe activity | | | | + + + + + + | Limitations | (See Below)Comment: The | | EXTERNAL | | | : | negative predictive | | LAB | | | | value of a Fibrotest | | | | | | score <0.31 (absence | | | | | | ofclinically significant | | | | | | fibrosis) was 85% when | | | | | | compared to liverbiopsy | | | | | | in 1,270 HCV infected | | | | | | patients with a 38% | | | | | | prevalence ofsignificant | | | | | | liver fibrosis (F2, 3 | | | | | | or 4). The positive | | | | | | predictivevalue of a | | | | | | Fibro-test score >0.48 | | | | | | (F2, 3, 4) was 61% in | | | | | | that samepatient cohort. | | | | | | HCV FibroSURE is not | | | | | | recommended in patients | | | | | | withGilbert Disease, | | | | | | acute hemolysis (e.g. | | | | | | HCV ribavirin therapy | | | | | | mediatedhemolysis) acute | | | | | | hepa-titis of the | | | | | | liver, extra-hepatic | | | | | | cholestasis,transplant | | | | | | patients, and/or renal | | | | | | insufficiency patients. | | | | | | Any ofthese clinical | | | | | | situations may lead to | | | | | | inaccurate | | | | | | quantitativepredictions | | | | | | of fibrosis and | | | | | | necroinflammatory | | | | | | activity in the liver. | | | | + + + + + + | Comment | (See Below)Comment: This | | EXTERNAL | | | | test was developed and | | LAB | | | | its performance | | | | | | characteristicsdetermine | | | | | | d by [facility]. It has | | | | | | not been cleared or | | | | | | approved by the[facility] and | | | | | | Drug Administration. | | | | | | The FDA has determined | | | | | | that suchclearance or | | | | | | approval is not | | | | | | necessary.For questions | | | | | | regarding this report | | | | | | please contact customer | | | | | | serviceat | | | | | | . | | | | + + + + + + + + | Specimen | + + | | + + + +---------+ + + | Performing | Address | City/State/Zipcode | Phone Number | | Organization | | | | + +---------+ + + | EXTERNAL LAB | | | | + +---------+ + + Alpha Fetoprotein, Tumor Marker (02/24/2018 11:13 AM PST) + + + + + + | Component | Value | Ref Range | Performed | Pathologist | | | | | At | Signature | + + + + + + | Alpha-Fetop | 2.8Comment: Reference | ng/mL | EXTERNAL | | | rotein | range: 0.0 to 8.3Roche | | LAB | | | | ECLIA methodology | | | | | |Hamzah ECLIA methodology | | | | | | | | | | + + + + + + + + | Specimen | + + | | + + + +---------+ + + | Performing | Address | City/State/Zipcode | Phone Number | | Organization | | | | + +---------+ + + | EXTERNAL LAB | | | | + +---------+ + + Hepatitis B Core Ab, IgM (02/24/2018 11:13 AM PST) + + + + + + | Component | Value | Ref Range | Performed | Pathologist | | | | | At | Signature | + + + + + + | HEP B CORE | NON REACTIVE | | EXTERNAL | | | IgM | | | LAB | | + + + + + + + + | Specimen | + + | Blood specimen | | (specimen) | + + + +---------+ + + | Performing | Address | City/State/Zipcode | Phone Number | | Organization | | | | + +---------+ + + | EXTERNAL LAB | | | | + +---------+ + + HIV 1 and 2 Antibody Differentiation (02/24/2018 11:13 AM PST) + + + + + + | Component | Value | Ref Range | Performed | Pathologist | | | | | At | Signature | + + + + + + | HIV 1 and 2 | NON REACTIVEComment: THE | | EXTERNAL | | | Ab | NON REACTIVE HIV 1/2 | | LAB | | | | RESULT INDICATES THAT | | | | | | NEITHER ANTIBODIES NOR | | | | | | P24 ANTIGEN TO HIV 1/2 | | | | | | HAVE BEEN DETECTED IN | | | | | | THIS SPECIMEN. THIS | | | | | | RESULT DOES NOT PRECLUDE | | | | | | PREVIOUS EXPOSURE OR | | | | | | INFECTION. | | | | + + + + + + + + | Specimen | + + | Blood specimen | | (specimen) | + + + +---------+ + + | Performing | Address | City/State/Zipcode | Phone Number | | Organization | | | | + +---------+ + + | EXTERNAL LAB | | | | + +---------+ + + Hepatitis B Surface Ab (02/24/2018 11:13 AM PST) + + + + + + | Component | Value | Ref Range | Performed | Pathologist | | | | | At | Signature | + + + + + + | HEP B | >24.00 (H)Comment: <1.00 | {index_val} | EXTERNAL | | | SURFACE | Non | | LAB | | | ANTIBODY | Immune1.00 OR MORE | | | | | | Indicates vaccine | | | | | | response or response to | | | | | | HBV infection. An Index | | | | | | Value (IV) of 1.00 is | | | | | | equivalent to 10 mIU/mL. | | | | | | Samples with an IV of | | | | | | 1.00 or greater are | | | | | | considered reactive | | | | | | (protected) in | | | | | | accordance with CDC | | | | | | Guidelines. | | | | + + + + + + + + | Specimen | + + | Blood specimen | | (specimen) | + + + +---------+ + + | Performing | Address | City/State/Zipcode | Phone Number | | Organization | | | | + +---------+ + + | EXTERNAL LAB | | | | + +---------+ + + Hepatitis B Surface Ag (02/24/2018 11:13 AM PST) + + + + + + | Component | Value | Ref Range | Performed | Pathologist | | | | | At | Signature | + + + + + + | HEP B | NON REACTIVE | | EXTERNAL | | | SURFACE | | | LAB | | | ANTIBODY | | | | | + + + + + + + + | Specimen | + + | Blood specimen | | (specimen) | + + + +---------+ + + | Performing | Address | City/State/Zipcode | Phone Number | | Organization | | | | + +---------+ + + | EXTERNAL LAB | | | | + +---------+ + + documented in this encounter Visit Diagnoses Not on filedocumented in this encounter"
--- OUTSIDE RECORDS SUMMARY | ~2019-01-30 | XMS | Encounter Summary ---
Demographics + + + | Address | [address] | | | [place] [address] | + + + | Home Phone | | + + + | Preferred Language | Unknown | + + + | Marital Status | Single | + + + | Mu-Ism Affiliation | Unknown | + + + | Race | Unknown | + + + | Ethnic Group | Unknown | + + + Author + + + | Author | [facility] | | | and [place] | + + + | Organization | [facility] | | | [...] Team Providers + +------+ + | Care Spanish Moss Picker Name | Role | Phone | + +------+ + PCP | Unavailable | + +------+ + Encounter Details +--------+ + + + + | Date | Type | Department | Care Team | Description | +--------+ + + + + | 05/22/ | Hospital | [facility] | Conversion | Pain | | 2014 | Encounter | CONVERSION [address] | Transaction, | | | | | [address] | Provider Unknown | | | | | [place], [place] | [phone] | | | | | [address] | | | | | | [phone] | | | +--------+ + + + [...]
--- OUTSIDE RECORDS SUMMARY | ~2019-01-30 | XMS | Encounter Summary ---
Demographics + + + | Address | [address] | | | [place] [address] | + + + | Home Phone | | + + + | Preferred Language | Unknown | + + + | Marital Status | Single | + + + | Cheondoism Affiliation | Unknown | + + + | Race | Unknown | + + + | Ethnic Group | Unknown | + + + Author + + + | Author | [facility] | | | and [place] | + + + | Organization | [facility] | | | [...] Team Providers + +------+ + | Care End Lathe Operator Name | Role | Phone | [...] Provider Unknown | | | | | [place], [place] | [phone] | | | | | [address] | | | | | | [phone] | | | +--------+ + + + [...]
--- OUTSIDE RECORDS SUMMARY | ~2019-01-30 | XMS | Encounter Summary ---
Demographics + + + | Address | [address] | | | [place] [address] | + + + | Home Phone | | + + + | Preferred Language | Unknown | + + + | Marital Status | Single | + + + | Sikh Affiliation | Unknown | + + + | Race | Unknown | + + + | Ethnic Group | Unknown | + + + Author + + + | Author | [facility] | | | and [place] | + + + | Organization | [facility] | | | [...] Team Providers + +------+ + | Care Leak Operator Paraffin Plant Name | Role | Phone | + +------+ + | Erica Wise MD | PCP | | + +------+ + Reason for Visit + + + | Reason | Comments | + + + | Care Coordination | PA #2 INITIATED FOR HCV [place]IE [address] | + + + Encounter Details +--------+ + + + + | Date | Type | Department | Care Team | Description | +--------+ + + + + | 10/14/ | Telephone | [facility] | Kandy Raza, | Care Coordination | | 2019 | | INFECTIOUS DISEASE | Flight [address] | (PA #2 INITIATED FOR | | | | [address] | | HCV [place] [address] [place] | | | | [place] | | ) | | | | [address] | | | | | | [phone] | | | +--------+ + + + [...]
--- OUTSIDE RECORDS SUMMARY | ~2019-01-30 | XMS | Encounter Summary ---
Demographics + + + | Address | [address] | | | [place] [address] | + + + | Home Phone | | + + + | Preferred Language | Unknown | + + + | Marital Status | Single | + + + | Taoism Affiliation | Unknown | + + + | Race | Unknown | + + + | Ethnic Group | Unknown | + + + Author + + + | Author | [facility] | | | and [place] | + + + | Organization | [facility] | | [...] Team Providers + +------+ + | Care Dispatch Clerk Name | Role | Phone | + +------+ + PCP | Unavailable | + +------+ + Encounter Details +--------+ + + + + | Date | Type | Department | Care Team | Description | +--------+ + + + + | 04/07/ | Hospital | [facility] | Mak Mooney, | | | 1996 - | Encounter | [facility] [address] | [address] | | | | | [address] | [place] [address] | | | 04/08/ | | [place], [place] | [phone] | | | 1996 | | [address] | | | | | | [phone] | | | +--------+ + + + [...]
--- OUTSIDE RECORDS SUMMARY | ~2019-01-30 | XMS | Encounter Summary ---
Demographics + + + | Address | [address] | | | [place] [address] | + + + | Home Phone | | + + + | Preferred Language | Unknown | + + + | Marital Status | Single | + + + | Yarsanism Affiliation | Unknown | + + + | Race | Unknown | + + + | Ethnic Group | Unknown | + + + Author + + + | Author | [facility] | | | and [place] | + + + | Organization | [facility] | | [...] Team Providers + +------+ + | Care Information Consultant Name | Role | Phone | + +------+ + PCP | Unavailable | + +------+ + Encounter Details +--------+ + + + + | Date | Type | Department | Care Team | Description | +--------+ + + + + | 05/22/ | Hospital | [facility] | Conversion | Pain | | 2014 | Encounter | CONVERSION [address] | Transaction, | | | | | [address] | Provider Unknown | | | | | [place], [place] | [phone] | | | | | [address] | | | | | | [phone] | | | +--------+ + + + [...]
--- OUTSIDE RECORDS SUMMARY | ~2019-01-30 | XMS | Encounter Summary ---
Demographics + + + | Address | [address] | | | [place] [address] | + + + | Home Phone | | + + + | Preferred Language | Unknown | + + + | Marital Status | | + + + | Restorationist Affiliation | Unknown | + + + | Race | White | + + + | Ethnic Group | Not or | + + + Author + + + | Author | [facility] | + + + | Organization | [facility] | + + + | Address | Unknown | + + + | Phone | Unavailable | + + + Support + + +---------+ + | Name | Relationship | Address | Phone | + + +---------+ + | Rosalina Martinez | ECON | Unknown | | + + +---------+ + Care Team Providers + +------+ + | Care Head Stock Operator Name | Role | Phone | + +------+ + | Mohan Bullock NP | PCP | | + +------+ + Encounter Details +--------+ + + + + | Date | Type | Department | Care Team | Description | +--------+ + + + + | 01/28/ | Abstract | Orthopaedics at | Note, Orthopedics | | | 2018 | | [facility] [address] | Clinic | | | | | [place] Mailcode: CH12A | | | | | | [facility] | | | | | | and Healing, | | | | | | | | | | | | Floor [place], [place] | | | | | | [address] | | | | | | [phone] | | | +--------+ + + + [...] + documented as of this encounter Progress Krupa Griffith - 01/28/2018 12:36 PM PST Erroneous entry documented in this encounter Plan of Treatment Not on filedocumented as of this encounter Visit Diagnoses Not on filedocumented in this encounter"
--- OUTSIDE RECORDS SUMMARY | ~2019-01-30 | XMS | Encounter Summary ---
Demographics + + + | Address | [address] | | | [place] [address] | + + + | Home Phone | | + + + | Preferred Language | Unknown | + + + | Marital Status | Single | + + + | Mandaen Affiliation | Unknown | + + + | Race | Unknown | + + + | Ethnic Group | Unknown | + + + Author + + + | Author | [facility] | | | and [place] | + + + | Organization | [facility] | | | and [...] Providers + +------+ + | Care Teacher Dramatics Name | Role | Phone | + +------+ + PCP | Unavailable | + +------+ + Encounter Details +--------+ + + + + | Date | Type | Department | Care Team | Description | +--------+ + + + + | 07/16/ | Hospital | [facility] | Conversion | Joint effusion | | 1994 | Encounter | [address]VERSION [address] | Transaction, | | | | | [address] | Provider Unknown | | | | | [place], [place] | [phone] | | | | | [address] | (Fax) | | | | | [phone] | | | +--------+ + + + [...] + | Diagnosis | + + | Joint effusion Effusion of joint, site unspecified | + + documented in this encounter"
--- OUTSIDE RECORDS SUMMARY | ~2019-01-30 | XMS | Clinical Summary ---
Demographics + + + | Address | [address] | | | [place] [address] | + + + | Home Phone | | + + + | Preferred Language | Unknown | + + + | Marital Status | Single | + + + | Buddhism Affiliation | Unknown | + + + | Race | Unknown | + + + | Ethnic Group | Unknown | + + + Author + + + | Author | [facility] [employer] [facility] (Historical as of | | | 10-11-18) | + + + | Organization | [facility] [employer] (Historical as of | | | 10-11-18) [...] Team Providers + +------+ + | Care Registered Nurse Supervisor Name | Role | Phone | [...] +------+-------+ + | MEDICARE | MEDICA | [id number] | | | [address] | | | RE | | | | [place] [address] | | | IP-OP | | | | | + +--------+ +------+-------+ + | MEDICAID | [place] | [id number] | | | [address] | | | N | | | | [place] | | | [place] | | | | [address] | | | DRIVERS' CASH CLERK | | | | | + +--------+ [...] | Self | [birth year] | Home: | [address] | | | al/Fam | | 1970 | +- | [place] | | | [place] | | | [address] | [address] | + +--------+ +--------+ + + | JAN MARTINEZ | Worker | Self | [birth year] | Home: | [address] | | | s Comp | | 1970 | +- | [place] | | | | | | [address] | [address] | + +--------+ +--------+ + +"
--- OUTSIDE RECORDS SUMMARY | ~2019-01-30 | XMS | Clinical Summary ---
Demographics + + + | Address | [address] | | | [place] [address] | + + + | Home Phone | | + + + | Preferred Language | Unknown | + + + | Marital Status | | + + + | Voodoo Affiliation | Unknown | + + + [...] Team Providers + +------+ + | Care Water Treatment Plant Mechanic Name | Role | Phone | + +------+ + | Mohan Bullock BLANCHING MACHINE OPERATOR | PCP | | + +------+ + Source Comments [facility] is fully live on both [facility] and [facility] Allergies Not on File Medications Not on file Active Problems Not [...] Signs Not on file Plan of Treatment + + + + + | Health Maintenance | Due Date | Last Done | Comments | + + + + + | Influenza (Flu) | | | | | vaccination (#1) | 9 | | | + + + + + | Pneumococcal | Aged Out | | No longer eligible | | vaccination | | | based on patient's | | | | | age to complete this | | | | | topic | + + + + + Results Not on filefrom Last 3 Months Insurance + +--------+ +--------+-------+---------+--------+ | Payer | Benefi | Subscriber | Effect | Phone | Address | Type | | | t Plan | ID | ray | | | | | | / | | Dates | | | | | | Group | | | | | | + +--------+ +--------+-------+---------+--------+ | WORKERS COMP OTHER | WORKER | [id number] | 10/02/19 | | | Worker | | | S COMP | | 12-Pre | | | s Comp | | | OTHER | | sent | | | | + +--------+ +--------+-------+---------+--------+ | ULTRASOUND APPLICATIONS SPECIALIST MEDICAID | ULTRASOUND APPLICATIONS SPECIALIST | [id number] | Effect | | | Medica | | | [place] | | ray | | | id | | | [place] | | for | | | | | | | | all | | | | | | | | dates | | | | + +--------+ +--------+-------+---------+--------+ + +--------+ +--------+ + + | Guarantor Name | Accoun | Relation to | Date | Phone | Billing Address | | | t Type | Patient | of | | | | | | | | | | + +--------+ +--------+ + + | Jan Martinez | Person | Self | [birth year] | [address] | | | al/Rajan | | 1971 | [phone] | [place] | | | marc | | | 6 (Home) | [address] | + +--------+ +--------+ + + | Jan Martinez | Worker | Self | [birth year] | | [address] | | | s Comp | | 1971 | [phone] | [place] | | | | | | 6 ([place]) | [address] | + +--------+ +--------+ + +"
--- OUTSIDE RECORDS SUMMARY | ~2019-01-30 | XMS | Encounter Summary ---
Demographics + + + | Address | [address] | | | [place] [address] | + + + | Home Phone | | + + + | Preferred Language | Unknown | + + + | Marital Status | Single | + + + | Christian Affiliation | Unknown | + + + | Race | Unknown | + + + | Ethnic Group | Unknown | + + + Author + + + | Author | [facility] | | | and [place] | + + + | Organization | [facility] | | | and [...] Team Providers + +------+ + | Care Wallpaper Embosser Helper Name | Role | Phone | + +------+ + PCP | Unavailable | + +------+ + Encounter Details +--------+ + + + + | Date | Type | Department | Care Team | Description | +--------+ + + + + | 06/14/ | Hospital | [facility] | Conversion | Phlebitis and | | 1994 | Encounter | CONVERSION [address] | Transaction, | thrombophlebitis of | | | | [address] | Provider Unknown | unspecified site | | | | [place], [place] | | | | | | [address] | (Fax) | | | | | [phone] | | | +--------+ + + + [...]
--- OUTSIDE RECORDS SUMMARY | ~2019-01-30 | XMS | Encounter Summary ---
Demographics + + + | Address | [address] | | | [place] [address] | + + + | Home Phone | | + + + | Preferred Language | Unknown | + + + | Marital Status | Single | + + + | Sabianism Affiliation | Unknown | + + + | Race | Unknown | + + + | Ethnic Group | Unknown | + + + Author + + + | Author | [facility] | | | and [place] | + + + | Organization | [facility] | | [...] Team Providers + +------+ + | Care Inventory Control Analyst Name | Role | Phone | + [...] Gamez MD | | | | | [place], [place] | [address] | | | | | [address] | [place] [address] | | | | | [phone] | [phone] | | | | | | | [...] | | | | | [facility] and | | | | | | [...]
--- OUTSIDE RECORDS SUMMARY | ~2019-01-30 | XMS | Encounter Summary ---
Demographics + + + | Address | [address] | | | [place] [address] | + + + | Home Phone | | + + + | Preferred Language | Unknown | + + + | Marital Status | Single | + + + | Restorationist Affiliation | Unknown | + + + | Race | Unknown | + + + | Ethnic Group | Unknown | + + + Author + + + | Author | [facility] | | | and [place] | + + + | Organization | [facility] | | | [...] Team Providers + +------+ + | Care Cancer Registrar Name | Role | Phone | + [...] Unknown | | | | | [address] | | | | | | [place], [place] | (Fax) | | | | | [address] | | | | | | [phone] | | | +--------+ + + + [...]
--- OUTSIDE RECORDS SUMMARY | ~2019-01-30 | XMS | Encounter Summary ---
Demographics + + + | Address | [address] | | | [place] [address] | + + + | Home Phone | | + + + | Preferred Language | Unknown | + + + | Marital Status | Single | + + + | Baptism Affiliation | Unknown | + + + | Race | Unknown | + + + | Ethnic Group | Unknown | + + + Author + + + | Author | [facility] | | | and [place] | + + + | Organization | [facility] | | | [...] Team Providers + +------+ + | Care Automobile Damage Appraiser Name | Role | Phone | + [...] Provider Unknown | | | | | [place] | [phone] | | | | | [address] | | | | | | [phone] | | | +--------+ + + + [...]
--- OUTSIDE RECORDS SUMMARY | ~2019-01-30 | XMS | Clinical Summary ---
Demographics + + + | Address | [address] | | | [place] [address] | + + + | Home Phone | | + + + | Preferred Language | Unknown | + + + | Marital Status | | + + + | Orthodox Affiliation [...] Team Providers + +------+ + | Care Dye Padder Operator Name | Role | Phone | + +------+ + | Mohan Bullock DIRECTOR ENTERPRISE SYSTEMS | PCP | | + +------+ + Source Comments SUKHJINDER is fully live on both [facility] Allergies Not on File Medications Not on [...] | | | + +--------+ +--------+-------+---------+--------+ | COMMISSARY AGENT MEDICAID | COMMISSARY AGENT | xxxxxxxx | Effect | | | [...] marc | | | 6 (Home) | [address] | + +--------+ +--------+ + + | Jan Martinez | Worker | Self | [birth year] | [address] | | | s Comp | | 1971 | [phone] | [place] | | | | | | 6 ([place]) | [address] | + +--------+ +--------+ + +"
--- OUTSIDE RECORDS SUMMARY | ~2019-01-30 | XMS | Encounter Summary ---
Demographics + + + | Address | [address] | | | [place] [address] | + + + | Home Phone | | + + + | Preferred Language | Unknown | + + + | Marital Status | Single | + + + | Sikh Affiliation | Unknown | + + + | Race | Unknown | + + + | Ethnic Group | Unknown | + + + Author + + + | Author | [facility] | | | and [place] | + + + | Organization | [facility] | | [...] Team Providers + +------+ + | Care King Maker Name | Role | Phone | + +------+ + PCP | Unavailable | + +------+ + Encounter Details +--------+ + + + + | Date | Type | Department | Care Team | Description | +--------+ + + + + | 05/ | Hospital | [facility] | Conversion | Swelling of limb | | 1994 | Encounter | [address]VERSION [address] | Transaction, | | | | | [address] | Provider Unknown | | | | | [place], [place] | [phone] | | | | | [address] | | | | | | [phone] | | | +--------+ + + + [...] + | Diagnosis | + + | Swelling of limb | + + documented in this encounter"
--- OUTSIDE RECORDS SUMMARY | ~2019-01-30 | XMS | Encounter Summary ---
Demographics + + + | Address | [address] | | | [place] [address] | + + + | Home Phone | | + + + | Preferred Language | Unknown | + + + | Marital Status | Single | + + + | Congregation Affiliation | Unknown | + + + [...] Team Providers + +------+ + | Care Elect Equip Maint Eng Name | Role | Phone | + [...] + + | 10/14/ | Telephone | [facility] | Kandy Raza, | Care Coordination | | 2019 | | INFECTIOUS DISEASE | Kiln Maintenance | (PA [address] INITIATED FOR | | | | [address] | | [address] [place] | | | | [place] | | ) | | | | [address] | | | | | | [phone] | | | +--------+ + + + [...]
--- OUTSIDE RECORDS SUMMARY | ~2019-01-30 | XMS | Encounter Summary ---
Demographics + + + | Address | [address] | | | [place] [address] | + + + | Home Phone | | + + + | Preferred Language | Unknown | + + + | Marital Status | | + + + | Congregational Affiliation | Unknown | + + + | Race | White | + + + | Ethnic Group | Not or | + + + Author + + + | Author | [facility] | + + + | Organization | [facility] | + + + | Address | Unknown | + + + | Phone | Unavailable | + + + Support + + +---------+ + | Name | Relationship | Address | Phone | + + +---------+ + | Rosalina Martinez | ECON | Unknown | | + + +---------+ + Care Team Providers + +------+ + | Care It Help Desk Technician Name | Role | Phone | + +------+ + | Mohan Bullock DECISION SCIENCE ANALYST | PCP | | + +------+ + [...] Referral (Right | | 2018 | | [facility] [address] [facility] | Clinic | below knee | | | | Ave Mailcode: CH12A | | amputation ) | | | | [facility] | | | | | | and Healing, | | | | | | Building | | | | | | Floor [place], [place] | | | | | | [address] | | | | | | [phone] | | | +--------+ + + + [...] Tab DOI, if applicable? 10/03/2011 Prior Surgery? Yes/[facility]/10/05/2014 Have you seen anyone for this yet? Yes, when: 08/2013; where: [facility] & [facility] fracture clinic MRI Yes, when: 10/30/2017 pt does not recall other dates; where: [facility] & [facility] VPN-Requested [facility] Calling [facility] Diagnostic Reports Media Tab Niesha from [facility] stated no imaging has been done or ever ordered for patient X-Ray Yes, when: pt does not recall; where: [facility] Calling [facility] CT No Ultrasound No Other imaging [facility] 2012 Insurance to be billed per patient WC Is this a W/C injury? yes If YES, please also complete: .ORTWCNEWPATIENT inside referral For Out of State claims, please make patient aware that we do not take Out of State Worker' s Comp unless their tube building machine operator can secure [place] rates. Please advise patient to work directly with their tube building machine operator and if any questions their tube building machine operator can call us back. Are you a [...] they d [facility] ? Don t forget to pull in CareEveryWhere Additional Comments: Patient would like AM appointment documented in this encounter Plan of Treatment Not on filedocumented as of this encounter Visit Diagnoses Not on filedocumented in this encounter"
--- OUTSIDE RECORDS SUMMARY | ~2019-01-30 | XMS | Encounter Summary ---
Demographics + + + | Address | [address] | | | [place] [address] | + + + | Home Phone | | + + + | Preferred Language | Unknown | + + + | Marital Status | Single | + + + | Alevism Affiliation | Unknown | + + + | Race | Unknown | + + + | Ethnic Group | Unknown | + + + Author + + + | Author | [facility] | | | and [place] | + + + | Organization | [facility] | | | and [...] Team Providers + +------+ + | Care Powder Operator Name | Role | Phone | + +------+ + PCP | Unavailable | + +------+ + Encounter Details +--------+ + + + + | Date | Type | Department | Care Team | Description | +--------+ + + + + | 07/24/ | Hospital | [facility] | Conversion | Pain in joint, lower | | 1994 | Encounter | MEDICAL CENTER | Transaction, | leg | | | | OUTPATIENT | Provider Unknown | | | | | PROCEDURES [address] | [phone] | | | | | [address] | | | | | | [place], [place] | | | | | | [address] | | | | | | [phone] | | | +--------+ + + + [...]
--- OUTSIDE RECORDS SUMMARY | ~2019-01-30 | XMS | Encounter Summary ---
Demographics + + + | Address | [address] | | | [place] [address] | + + + | Home Phone | | + + + | Preferred Language | Unknown | + + + | Marital Status | Single | + + + | Congregational Affiliation | Unknown | + + + | Race | Unknown | + + + | Ethnic Group | Unknown | + + + Author + + + | Author | [facility] | | | and [place] | + + + | Organization | [facility] | | [...] Team Providers + +------+ + | Care Transportation Escort Name | Role | Phone | + +------+ + PCP | Unavailable | + +------+ + Encounter Details +--------+ + + + + | Date | Type | Department | Care Team | Description | +--------+ + + + + | 03/24/ | Hospital | [facility] | Mak Mooney, | Other tear of | | 1996 | Encounter | CONVERSION [address] | MD [address] | cartilage or | | | | [address] | [place] [address] | meniscus of knee, | | | | [place], [place] | [phone] | current | | | | [address] | | | | | | [phone] | | | +--------+ + + + [...]
--- OUTSIDE RECORDS SUMMARY | ~2019-01-30 | XMS | Encounter Summary ---
Demographics + + + | Address | [address] | | | [place] [address] | + + + | Home Phone | | + + + | Preferred Language | Unknown | + + + | Marital Status | Single | + + + | Mandaeism Affiliation | Unknown | + + + | Race | Unknown | + + + | Ethnic Group | Unknown | + + + Author + + + | Author | [facility] | | | and [place] | + + + | Organization | [facility] | | [...] Team Providers + +------+ + | Care Bullet Charging Machine Operator Name | Role | Phone [...] Provider Unknown | | | | | [place] | [phone] | | | | | [address] | | | | | | [phone] | | | +--------+ + + + [...]
--- OUTSIDE RECORDS SUMMARY | ~2019-01-30 | XMS | Encounter Summary ---
Demographics + + + | Address | [address] | | | [place] [address] | + + + | Home Phone | | + + + | Preferred Language | Unknown | + + + | Marital Status | Single | + + + | Pentecostalism Affiliation | Unknown | + + + | Race | Unknown | + + + | Ethnic Group | Unknown | + + + Author + + + | Author | [facility] | | | and [place] | + + + | Organization | [facility] | | | [...] Team Providers + +------+ + | Care Lithograph Press Operator Name | Role | Phone | + +------+ + PCP | Unavailable | + +------+ + Encounter Details +--------+ + + + + | Date | Type | Department | Care Team | Description | +--------+ + + + + | 06/14/ | Hospital | [facility] | Conversion | Phlebitis and | | 1994 | Encounter | [address]VERSION [address] | Transaction, | thrombophlebitis of | | | | [address] | Provider Unknown | unspecified site | | | | [place], [place] | | | | | | [address] | (Fax) | | | | | [phone] | | | +--------+ + + + [...]
--- OUTSIDE RECORDS SUMMARY | ~2019-01-30 | XMS | Encounter Summary ---
Demographics + + + | Address | [address] | | | [place] [address] | + + + | Home Phone | | + + + | Preferred Language | Unknown | + + + | Marital Status | Single | + + + | Pentecostal Affiliation | Unknown | + + + | Race | Unknown | + + + | Ethnic Group | Unknown | + + + Author + + + | Author | [facility] | | | and [place] | + + + | Organization | [facility] | | [...] Team Providers + +------+ + | Care Associate Creative Director Name | Role | Phone | + +------+ + PCP | Unavailable | + +------+ + Encounter Details +--------+ + + + + | Date | Type | Department | Care Team | Description | +--------+ + + + + | 05/22/ | Hospital | [facility] | Conversion | Pain | | 2014 | Encounter | [address] | Transaction, | | | | | [address] | Provider Unknown | | | | | [place], [place] | [phone] | | | | | [address] | | | | | | [phone] | | | +--------+ + + + [...]
--- OUTSIDE RECORDS SUMMARY | ~2019-01-30 | XMS | Encounter Summary ---
Demographics + + + | Address | [address] | | | [place] [address] | + + + | Home Phone | | + + + | Preferred Language | Unknown | + + + | Marital Status | Single | + + + | Hinduism Affiliation | Unknown | + + + [...] Providers + +------+ + | Care Automotive Electrical Helper Name | Role | Phone | [...] Unknown | | | | | [address] | | | | | | [place], [place] | (Fax) | | | | | [address] | | | | | | [phone] | | | +--------+ + + + [...]
--- OUTSIDE RECORDS SUMMARY | ~2019-01-30 | XMS | Encounter Summary ---
Demographics + + + | Address | [address] | | | [place] [address] | + + + | Home Phone | | + + + | Preferred Language | Unknown | + + + | Marital Status | Single | + + + | Oriental Orthodox Affiliation | Unknown | + + [...] Team Providers + +------+ + | Care Scale Shooter Name | Role | Phone | + [...] Provider Unknown | | | | | [place] | [phone] | | | | | [address] | | | | | | [phone] | | | +--------+ + + + [...]
--- OUTSIDE RECORDS SUMMARY | ~2019-01-30 | XMS | Encounter Summary ---
Demographics + + + | Address | [address] | | | [place] [address] | + + + | Home Phone | | + + + | Preferred Language | Unknown | + + + | Marital Status | Single | + + + | Pentecostalism Affiliation | Unknown | + + + | Race | Unknown | + + + | Ethnic Group | Unknown | + + + Author + + + | Author | [facility] | | | and [place] | + + + | Organization | [facility] | | | [...] Team Providers + +------+ + | Care Roadway Technician Name | Role | Phone | + +------+ + PCP | Unavailable | + +------+ + Encounter Details +--------+ + + + + | Date | Type | Department | Care Team | Description | +--------+ + + + + | 07/24/ | Hospital | [facility] | Conversion | Pain in joint, lower | | 1994 | Encounter | MEDICAL CENTER | Transaction, | leg | | | | OUTPATIENT | Provider Unknown | | | | | [address] | [phone] | | | | | [address] | | | | | | [place], [place] | | | | | | [address] | | | | | | [phone] | | | +--------+ + + + [...]
--- OUTSIDE RECORDS SUMMARY | ~2019-01-30 | XMS | Encounter Summary ---
Demographics + + + | Address | [address] | | | [place] [address] | + + + | Home Phone | | + + + | Preferred Language | Unknown | + + + | Marital Status | Single | + + + | Rastafarian Affiliation | Unknown | + + + | Race | Unknown | + + + | Ethnic Group | Unknown | + + + Author + + + | Author | [facility] | | | and [place] | + + + | Organization | [facility] | | [...] Team Providers + +------+ + | Care Rough Rice Tender Name | Role | Phone | + +------+ + PCP | Unavailable | + +------+ + Encounter Details +--------+ + + + + | Date | Type | Department | Care Team | Description | +--------+ + + + + | 05/29/ | Hospital | [facility] | Conversion | Other tear of | | 1995 | Encounter | MEDICAL CENTER | Transaction, | cartilage or | | | | OUTPATIENT | Provider Unknown | meniscus of knee, | | | | [address] | [phone] | current | | | | [address] | | | | | | [place], [place] | | | | | | [address] | | | | | | [phone] | | | +--------+ + + + [...]
--- OUTSIDE RECORDS SUMMARY | ~2019-01-30 | XMS | Encounter Summary ---
Demographics + + + | Address | [address] | | | [place] [address] | + + + | Home Phone | | + + + | Preferred Language | Unknown | + + + | Marital Status | Single | + + + | Evangelical Affiliation | Unknown | + + + [...] Team Providers + +------+ + | Care Vice President Of Development Name | Role | Phone | + +------+ + PCP | Unavailable | + +------+ + Encounter Details +--------+ + + + + | Date | Type | Department | Care Team | Description | +--------+ + + + + | 06/20/ | Hospital | [facility] | Conversion | Tear of medial | | 1994 | Encounter | [facility] | Transaction, | cartilage or | | | | OUTPATIENT | Provider Unknown | meniscus of knee, | | | | PROCEDURES [address] | [phone] | current | | | | [address] | | | | | | [place], [place] | | | | | | [address] | | | | | | [phone] | | | +--------+ + + + [...]
--- OUTSIDE RECORDS SUMMARY | ~2019-01-30 | XMS | Encounter Summary ---
Demographics + + + | Address | [address] | | | [place] [address] | + + + | Home Phone [...] Team Providers + +------+ + | Care Plaster Mechanic Name | Role | Phone | + +------+ + PCP | Unavailable | + +------+ + Encounter Details +--------+ + + + + | Date | Type | Department | Care Team | Description | +--------+ + + + + | 03/24/ | Hospital | [facility] | Mak Mooney, | Other tear of | | 1996 | Encounter | CON[address] | MD [address] | cartilage or | | | | [address] | [place] [address] | meniscus of knee, | | | | [place], [place] | [phone] | current | | | | [address] | | | | | | [phone] | | | +--------+ + + + [...]
--- OUTSIDE RECORDS SUMMARY | ~2019-01-30 | XMS | Encounter Summary ---
Demographics + + + | Address | [address] | | | [place] [address] | + + + | Home Phone | | + + + | Preferred Language | Unknown | + + + | Marital Status | | + + + | Uatsdin Affiliation | Unknown | + + + | Race | White | + + + | Ethnic Group | Not or | + + + Author + + + | Author | [facility] | + + + | Organization | [facility] | + + + | Address | Unknown | + + + | Phone | Unavailable | + + + Support + + +---------+ + | Name | Relationship | Address | Phone | + + +---------+ + | Rosalina Martinez | ECON | Unknown | | + + +---------+ + Care Team Providers + +------+ + | Care Construction Management Instructor Name | Role | Phone | + +------+ + | Mohan Bullock NP | PCP | | + +------+ + Encounter Details +--------+ + + + + | Date | Type | Department | Care Team | Description | +--------+ + + + + | 01/28/ | Abstract | Orthopaedics at | Note, Orthopedics | | | 2018 | | [facility] [address] | Clinic | | | | | [place] Mailcode: CH12A | | | | | | [facility] | | | | | | and Healing, | | | | | | | | | | | | Floor [place], [place] | | | | | | [address] | | | | | | [phone] | | | +--------+ + + + [...]
--- OUTSIDE RECORDS SUMMARY | ~2019-01-30 | XMS | Clinical Summary ---
Demographics + + + | Address | [address] | | | [place] [address] | + + + | Home Phone | | + + + | Preferred Language | Unknown | + + + | Marital Status | Single | + + + | Moravian Affiliation | Unknown | + + + | Race | Unknown | + + + | Ethnic Group | Unknown | + + + Author + + + | Author | [facility] | | | and [place] | + + + | Organization | [facility] | | | and [place] | + [...] Team Providers + +------+ + | Care Sole Tier Name | Role | Phone | + [...]
--- OUTSIDE RECORDS SUMMARY | ~2019-01-30 | XMS | Encounter Summary ---
Demographics + + + | Address | [address] | | | [place] [address] | + + + | Home Phone | | + + + | Preferred Language | Unknown | + + + | Marital Status | Single | + + + | Islam Affiliation | Unknown | + + + | Race | Unknown | + + + | Ethnic Group | Unknown | + + + Author + + + | Author | [facility] | | | and [place] | + + + | Organization | [facility] | | | and [...] Team Providers + +------+ + | Care Warehouse Picker Name | Role | Phone | [...] Provider Unknown | | | | | [place], [place] | [phone] | | | | | [address] | | | | | | [phone] | | | +--------+ + + + [...]
--- OUTSIDE RECORDS SUMMARY | ~2019-01-30 | XMS | Encounter Summary ---
Demographics + + + | Address | [address] | | | [place] [address] | + + + | Home Phone [...] Team Providers + +------+ + | Care Steel Grinder Name | Role | Phone | + [...] Provider Unknown | | | | | [place], [place] | [phone] | | | | | [address] | (Fax) | | | | | [phone] | | | +--------+ + + + [...]
--- OUTSIDE RECORDS SUMMARY | ~2019-01-30 | XMS | Encounter Summary ---
Demographics + + + | Address | [address] | | | [place] [address] | + + + | Home Phone | | + + + | Preferred Language | Unknown | + + + | Marital Status | Single | + + + | Faith Affiliation | Unknown | + + + [...] Team Providers + +------+ + | Care Event Management Consultant Name | Role | Phone | + +------+ + PCP | Unavailable | + +------+ + Encounter Details +--------+ + + + + | Date | Type | Department | Care Team | Description | +--------+ + + + + | 06/20/ | Hospital | [facility] | Conversion | Tear of medial | | 1994 | Encounter | [facility] | Transaction, | cartilage or | | | | OUTPATIENT | Provider Unknown | meniscus of knee, | | | | [address]EDURES [address] | [phone] | current | | | | [address] | | | | | | [place], [place] | | | | | | [address] | | | | | | [phone] | | | +--------+ + + + [...]
[~2019-01-30 18:24] MED LIST changes: +LOMOTIL TABLET1 EACH PO; +NORCO 7.5-3251 EACH PO
--- OUTSIDE RECORDS SUMMARY | 2019-01-30 18:30 | XMS ---
PreManage Notification: ORIANA POSADAS Security Iron Carrier Events No recent Security Events currently on file CRITERIA MET - [facility] - Has Care Guidelines - PDMP - [facility] - 2 Visits in 30 Days CARE PROVIDERS Jordan [facility]: Pulmonary Disease 04/07/2018-Current PHONE: Unknown MICHAEL [facility] 02/09/2016-Current PHONE: [phone] [facility] Current Orthopedic Surgery \T\ Fracture Clinic PHONE: Unknown Michael has no Care Guidelines for this patient. Care History Medical/Surgical 01/23/2019 [facility] Patient has follow up appt. with Dr. Wise on 02/03/2019 04/07/2018 [facility] - Patient is currently established with [facility]. If patient is seen in the ED during business hours. Please contact [facility] at [facility]. Care Recommendation: This patient has had 5 or more Emergency Department visits in the last 12 months.\T\nbsp; Patient requires education on the scope and purpose of the ED as an acute care provider not a Primary Care Provider and should not be utilized for chronic conditions.\T\nbsp; These are guidelines and the provider should exercise clinical judgment when providing care. E.D. VISIT COUNT (12 MO.) 3 [facility]. TOTAL 3 NOTE: Visits indicate total known visits. ED/UCC VISIT TRACKING (12 MO.) 01/30/2019 18:25 [facility] [place] TYPE: Emergency COMPLAINT: - LEG SWELLING (AMPUTEE), POSSIBLE INFECTION 01/22/2019 10:05 [facility] [place] TYPE: Emergency COMPLAINT: - POSSIBLE LEG INFECTION DIAGNOSES: - Allergy status to oth drug/meds/biol subst status - Allergy status to narcotic agent status - Other assisted (current) drug therapy - Cutaneous abscess of right lower limb - Allergy status to analgesic agent status 04/06/2018 20:21 [facility] [place] TYPE: Emergency COMPLAINT: - ABD PAIN DIAGNOSES: - Left upper quadrant pain - Allergy status to oth drug/meds/biol subst status - Other assisted (current) drug therapy - Acquired absence of other specified parts of digestive tract - Right lower quadrant pain - Acquired absence of right leg below knee - Allergy status to analgesic agent status - Allergy status to narcotic agent status INPATIENT VISIT TRACKING (12 MO.) No inpatient visits to display in this time frame [email or web address]
[2019-01-30] MEDS ORDERED: LEVAQUIN500 MG PO (19:08)
== END 2019-01-30 21:54 | disposition home or self-care (01) ==
LOC: ED 18:24
DX: L03.115 Cellulitis of right lower limb (principal); Z88.6 Allergy status to analgesic agent; Z88.5 Allergy status to narcotic agent; Z79.899 Other long term (current) drug therapy; Z96.651 Presence of right artificial knee joint
CPT/HCPCS: 73590; 80053; 85025; 85651; 96374; 99283-25; J3370; J7060

== ENCOUNTER 2019-04-14 10:15 | Emergency (ER) | payer OTHER ==
[~2019-04-14] VITALS: Ht 182.9 cm; Wt 102.2 kg
[~2019-04-14 10:15] MED LIST changes: +LEVAQUIN500 MG PO
--- OUTSIDE RECORDS SUMMARY | 2019-04-14 10:18 | XMS ---
PreManage Notification: ORIANA POSADAS Security Front Office Representative Events No recent Security Events currently on file CRITERIA MET - [facility] - Has Care Guidelines - PDMP CARE PROVIDERS Jordan Wise Internal Medicine: Pulmonary Disease 04/07/2018-Current PHONE: Unknown MICHAEL GONSALESLEY Primary Care 02/09/2016-Current PHONE: [phone] [facility] Current Orthopedic Surgery \T\ Fracture Clinic PHONE: Unknown Michael has no Care Guidelines for this patient. Care History Medical/Surgical 01/23/2019 [facility] Patient has follow up appt. with Dr. Wise on 02/03/2019 04/07/2018 [facility] - Patient is currently established with [facility]. If patient is seen in the ED during business hours. Please contact [facility] at [facility]. Care Recommendation: This patient has had 5 [...] care. E.D. VISIT COUNT (12 MO.) [address] [facility] TOTAL 3 NOTE: Visits indicate total known visits. ED/UCC VISIT TRACKING (12 MO.) 04/14/2019 10:16 [facility] [place] TYPE: Emergency COMPLAINT: - R LEG INFECTION 01/30/2019 18:25 [facility] [place] TYPE: Emergency COMPLAINT: - LEG SWELLING (AMPUTEE), POSSIBLE INFECTION DIAGNOSES: - Presence of right artificial knee joint - Other specified soft tissue disorders - Allergy status to narcotic agent status - Cellulitis of right lower limb - Allergy status to analgesic agent status - Other intermediate (current) drug therapy 01/22/2019 10:05 [facility] [place] TYPE: Emergency COMPLAINT: - POSSIBLE LEG INFECTION DIAGNOSES: - Allergy status to oth drug/meds/biol subst status - Allergy status to narcotic agent status - Other intermediate (current) drug therapy - Cutaneous abscess of right lower limb - Allergy status to analgesic agent status INPATIENT VISIT TRACKING (12 MO.) No inpatient visits to display in this time frame [email or web address]
[2019-04-16] MEDS ORDERED: BACTRIM DS TAB1 EACH PO (15:08)
== END 2019-04-14 11:15 | disposition home or self-care (01) ==
LOC: ED 10:15
DX: M79.89 Other specified soft tissue disorders (principal)

== ENCOUNTER 2019-04-15 09:20 | Emergency (ER) | payer OTHER, MEDICAID ==
[~2019-04-15] VITALS: Ht 182.9 cm; Wt 100.0 kg
--- OUTSIDE RECORDS SUMMARY | 2019-04-15 09:22 | XMS ---
PreManage Notification: ORIANA POSADAS Security Channel Director Events No recent Security Events currently on file CRITERIA MET - [facility] - 2 Visits in 30 Days CARE PROVIDERS Jordan Wise Internal Medicine: Pulmonary Disease 04/07/2018-Current PHONE: Unknown MIHCAEL GONSALESLEY Primary Care 02/09/2016-Current PHONE: [phone] [facility] Current Orthopedic Surgery \T\ Fracture Clinic PHONE: Unknown Michael has no Care Guidelines for this patient. Care History Medical/Surgical 01/23/2019 [facility] Patient has follow up appt. with Dr. Wise on 02/03/2019 04/07/2018 [facility] - Patient is currently established with [facility]. If patient is seen in the ED during business hours. Please contact CHWs at [facility]. Care Recommendation: This patient has had 5 [...] providing care. E.D. VISIT COUNT (12 MO.) 4 [facility] Pfeiffer TOTAL 4 NOTE: Visits indicate total known visits. ED/UCC VISIT TRACKING (12 MO.) 04/15/2019 09:20 [facility] [place] TYPE: Emergency COMPLAINT: - RIGHT LEG PAIN 04/14/2019 10:16 [facility] [place] TYPE: Emergency COMPLAINT: - R LEG INFECTION 01/30/2019 18:25 [facility] [place] TYPE: Emergency COMPLAINT: - LEG SWELLING (AMPUTEE), POSSIBLE INFECTION DIAGNOSES: - Presence of right artificial knee joint - Other specified soft tissue disorders - Allergy status to narcotic agent status - Cellulitis of right lower limb - Allergy status to analgesic agent status - Other moth exterminator (current) drug therapy 01/22/2019 10:05 [facility] [place] TYPE: Emergency COMPLAINT: - POSSIBLE LEG INFECTION DIAGNOSES: - Allergy status to oth drug/meds/biol subst status - Allergy status to narcotic agent status - Other moth exterminator (current) drug therapy - Cutaneous abscess of right lower limb - Allergy status to analgesic agent status INPATIENT VISIT TRACKING (12 MO.) No inpatient visits to display in this time frame [id number]
[2019-04-16] MEDS ORDERED: BACTRIM DS TAB1 EACH PO (15:08)
[2019-04-17] MEDS ORDERED: OXYCODONE HCL5 MG PO (10:19)
== END 2019-04-15 14:39 | disposition home or self-care (01) ==
LOC: ED 09:20
DX: M79.89 Other specified soft tissue disorders (principal); Z88.6 Allergy status to analgesic agent; Z88.8 Allergy status to other drugs, medicaments and biological substances; Z88.5 Allergy status to narcotic agent
CPT/HCPCS: 73700; 80053; 85025; 96361; 96374; 96376; 99284-25; J1170; J7030

== ENCOUNTER 2019-05-01 08:36 | Emergency (ER) | payer MEDICARE, MEDICAID ==
[~2019-05-01] VITALS: Ht 182.9 cm; Wt 102.1 kg
[~2019-05-01 08:36] MED LIST changes: +OXYCODONE HCL5 MG PO
--- OUTSIDE RECORDS SUMMARY | 2019-05-01 08:40 | XMS ---
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 Care History Medical/Surgical 01/23/2019 [facility] Patient has follow up appt. with Dr. Wise on 02/03/2019 04/07/2018 [facility] - Patient is currently established with [facility]. If patient is seen in the ED during business hours. Please contact CHWs at [facility]. Care Recommendation: This patient has had [...] providing care. E.D. VISIT COUNT (12 MO.) 5 [facility]. TOTAL 5 NOTE: Visits indicate total known visits. ED/UCC VISIT TRACKING (12 MO.) 05/01/2019:37 [facility] [place] TYPE: Emergency COMPLAINT: - LEFT SIDE FALL INJURY 04/15/2019 09:20 [facility] [place] TYPE: Emergency COMPLAINT: - RIGHT LEG PAIN,WORKERS COMP DIAGNOSES: - Allergy status to analgesic agent status - Other specified soft tissue disorders - Allergy status to oth drug/meds/biol subst status - Allergy status to narcotic agent status 04/14/2019 10:16 [facility] [place] TYPE: Emergency COMPLAINT: - R LEG INFECTION,MSE TO ORTHO DR RUIZ DIAGNOSES: - Other specified soft tissue disorders 01/30/2019 18:25 [facility] [place] TYPE: Emergency COMPLAINT: - LEG SWELLING (AMPUTEE), POSSIBLE INFECTION DIAGNOSES: - Presence of right artificial knee joint - Other specified soft tissue disorders - Allergy status to narcotic agent status - Cellulitis of right lower limb - Allergy status to analgesic agent status - Other snf (current) drug therapy 01/22/2019 10:05 [facility] [place] TYPE: Emergency COMPLAINT: - POSSIBLE LEG INFECTION DIAGNOSES: - Allergy status to oth drug/meds/biol subst status - Allergy status to narcotic agent status - Other snf (current) drug therapy - Cutaneous abscess of right lower limb - Allergy status to analgesic agent status INPATIENT VISIT TRACKING (12 MO.) No inpatient visits to display in this time frame [id number]
[2019-05-01] MEDS ORDERED: NORCO 5-325 TA1 EACH PO (09:37)
== END 2019-05-01 09:45 | disposition home or self-care (01) ==
LOC: ED 08:36
DX: S93.402A Sprain of unspecified ligament of left ankle, initial encounter (principal); S80.01XA Contusion of right knee, initial encounter; W10.9XXA Fall (on) (from) unspecified stairs and steps, initial encounter
CPT/HCPCS: 73560; 73610; 73630; 99283-25

== ENCOUNTER 2019-05-10 12:25 | Emergency (ER) | payer MEDICARE, MEDICAID ==
[~2019-05-10] VITALS: Ht 182.9 cm; Wt 102.1 kg
--- OUTSIDE RECORDS SUMMARY | 2019-05-10 12:28 | XMS ---
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 - Has Care Guidelines - PDMP - [facility] - 2 Visits in 30 Days CARE PROVIDERS YUSEF MUNIZ Internal Medicine: Pulmonary Disease 05/05/2019-Current PHONE: Unknown MICHAEL GONSALESLEY Primary Care 02/09/2016-Current PHONE: [phone] [facility] Current Orthopedic Surgery \T\ Fracture Clinic PHONE: Unknown Michael has no Care Guidelines for this patient. Care History Medical/Surgical 05/05/2019 [facility] Pt stated that he saw foot doctor \T\xiomara; Dr. Grimaldo or Dr. Muller, and has a follow up with Dr. Tsai on 05/20/2019 for his knee. 01/23/2019 [facility] Patient has follow up appt. with Dr. Wise on 02/03/2019 04/07/2018 [facility] - Patient is currently established with [facility]. If patient is seen in the ED during business hours. Please contact CHWs at [facility]. Care Recommendation: If this patient has had 5 or more Emergency Department visits in the last 12 months.\T\nbsp; Patient will require education on the scope and purpose of the ED as an acute care provider not a Primary Care Provider and should not be utilized for chronic conditions.\T\nbsp; These are guidelines and the provider should exercise clinical judgment when providing care. E.D. VISIT COUNT (12 MO.) 6 [facility]. TOTAL 6 NOTE: Visits indicate total known visits. ED/UCC VISIT TRACKING (12 MO.) 05/10/2019 12:26 [facility] Oneill[facility]harat Coker[facility] [place] TYPE: Emergency COMPLAINT: - FALL 05/01/2019 08:37 [facility] Oneillbharat C[facility] [place] TYPE: Emergency COMPLAINT: - LEFT SIDE FALL INJURY DIAGNOSES: - Contusion of right knee, initial encounter - Fall (on) (from) unspecified stairs and steps, init encntr - Pain in left ankle and joints of left foot - Sprain of unspecified ligament of left ankle, init encntr 04/15/2019 09:20 [facility] [place] TYPE: Emergency COMPLAINT: - RIGHT LEG PAIN,WORKERS COMP DIAGNOSES: - Allergy status to analgesic agent status - Other specified soft tissue disorders - Allergy status to oth drug/meds/biol subst status - Allergy status to narcotic agent status 04/14/2019 10:16 [facility] [place] TYPE: Emergency COMPLAINT: - R LEG INFECTION,MSE TO ORTHO DR TSAI DIAGNOSES: - Other specified soft tissue disorders 01/30/2019 18:25 [facility] [place] TYPE: Emergency COMPLAINT: - LEG SWELLING (AMPUTEE), POSSIBLE INFECTION DIAGNOSES: - Presence of right artificial knee joint - Other specified soft tissue disorders - Allergy status to narcotic agent status - Cellulitis of right lower limb - Allergy status to analgesic agent status - Other alf (current) drug therapy 01/22/2019 10:05 [facility] [place] TYPE: Emergency COMPLAINT: - POSSIBLE LEG INFECTION DIAGNOSES: - Allergy status to oth drug/meds/biol subst status - Allergy status to narcotic agent status - Other alf (current) drug therapy - Cutaneous abscess of right lower limb - Allergy status to analgesic agent status INPATIENT VISIT TRACKING (12 MO.) No inpatient visits to display in this time frame [id number]
[2019-05-10] MEDS ORDERED: NORCO 7.5-3251 EACH PO (15:37)
== END 2019-05-10 15:45 | disposition home or self-care (01) ==
LOC: ED 12:25
DX: S83.92XA Sprain of unspecified site of left knee, initial encounter (principal); S93.402A Sprain of unspecified ligament of left ankle, initial encounter; S93.602A Unspecified sprain of left foot, initial encounter; W10.9XXA Fall (on) (from) unspecified stairs and steps, initial encounter; Z88.6 Allergy status to analgesic agent; Z88.8 Allergy status to other drugs, medicaments and biological substances; Z88.5 Allergy status to narcotic agent
CPT/HCPCS: 73560; 73610; 73630; 99283-25

== ENCOUNTER 2019-06-09 14:52 | Emergency (ER) | payer MEDICARE, MEDICAID ==
[~2019-06-09] VITALS: Ht 182.9 cm; Wt 102.1 kg
--- OUTSIDE RECORDS SUMMARY | 2019-06-09 14:56 | XMS ---
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 Care History Medical/Surgical 05/05/2019 [facility] Pt stated that he saw foot doctor \T\xiomara; Dr. Grimaldo or Dr. Muller, and has a follow up with Dr. Tsai on 05/20/2019 for his knee. 01/23/2019 [facility] Patient has follow up appt. with Dr. Wise on 02/03/2019 04/07/2018 [facility] - Patient is currently established with [facility]. If patient is seen in the ED during business hours. Please contact CHWs at [facility]. Care Recommendation: If this patient has had [...] providing care. E.D. VISIT COUNT (12 MO.) 7 GILLIAN Pfeiffer TOTAL 7 NOTE: Visits indicate total known visits. ED/UCC VISIT TRACKING (12 MO.) 06/09/2019 14:53 [facility] [place] TYPE: Emergency COMPLAINT: - ABD PAIN, HIP PAIN 05/10/2019 12:26 [facility] [place] TYPE: Emergency COMPLAINT: - FALL DIAGNOSES: - Allergy status to narcotic agent status - Allergy status to other drugs, medicaments and biological sub - Fall (on) (from) unspecified stairs and steps, initial encoun - Sprain of unspecified site of left knee, initial encounter - Sprain of unspecified ligament of left ankle, initial encount - Allergy status to analgesic agent status - Unspecified sprain of left foot, initial encounter 05/01/2019 08:37 [facility] [place] TYPE: Emergency COMPLAINT: - LEFT SIDE FALL INJURY DIAGNOSES: - Contusion of right knee, initial encounter - Fall (on) (from) unspecified stairs and steps, initial encoun - Pain in left ankle and joints of left foot - Sprain of unspecified ligament of left ankle, initial encount 04/15/2019 09:20 [facility] [place] TYPE: Emergency COMPLAINT: - RIGHT LEG PAIN,WORKERS COMP DIAGNOSES: - Allergy status to analgesic agent status - Other specified soft tissue disorders - Allergy status to other drugs, medicaments and biological sub - Allergy status to narcotic agent status 04/14/2019 10:16 [facility] [place] TYPE: Emergency COMPLAINT: - R LEG INFECTION,MSE TO [place] TSAI DIAGNOSES: - Other specified soft tissue disorders 01/30/2019 18:25 [facility] [place] TYPE: Emergency COMPLAINT: - LEG SWELLING (AMPUTEE), POSSIBLE INFECTION DIAGNOSES: - Presence of right artificial knee joint - Other specified soft tissue disorders - Allergy status to narcotic agent status - Cellulitis of right lower limb - Allergy status to analgesic agent status - Other skilled nursing (current) drug therapy 01/22/2019 10:05 [facility] [place] TYPE: Emergency COMPLAINT: - POSSIBLE LEG INFECTION DIAGNOSES: - Allergy status to other drugs, medicaments and biological sub - Allergy status to narcotic agent status - Other skilled nursing (current) drug therapy - Cutaneous abscess of right lower limb - Allergy status to analgesic agent status INPATIENT VISIT TRACKING (12 MO.) No inpatient visits to display in this time frame [id number]
[2019-06-09] MEDS ORDERED: ONDANSETRON ODT8 MG PO (18:09)
== END 2019-06-09 18:22 | disposition home or self-care (01) ==
LOC: ED 14:52
DX: R10.31 Right lower quadrant pain (principal); R19.7 Diarrhea, unspecified; Z88.5 Allergy status to narcotic agent; Z88.8 Allergy status to other drugs, medicaments and biological substances
CPT/HCPCS: 74177; 80053; 81001; 83690; 83735; 85025; 96361; 96375; 99284-25; J2270; J2405; J7030

== ENCOUNTER 2019-10-15 13:34 | Emergency (ER) | payer MEDICARE, MEDICAID ==
[~2019-10-15] VITALS: Ht 182.9 cm; Wt 104.3 kg
--- OUTSIDE RECORDS SUMMARY | ~2019-10-15 | XMS | Encounter Summary ---
Demographics + + + | Address | [address] | | | [place] [address] | + + + | Home Phone | | + + + | Preferred Language | Unknown | + + + | Marital Status | | + + + | Alevism Affiliation | Unknown | + + + | Race | White | + + + | Ethnic Group | Not or | + + + Author + + + | Author | [facility] | + + + | Organization | [facility] | + + + | Address | Unknown | + + + | Phone | Unavailable | + + + Support + + +---------+ + | Name | Relationship | Address | Phone | + + +---------+ + | Rosalina Martinez | ECON | Unknown | | + + +---------+ + Care Team Providers + +------+ + | Care Mold Forms Builder Name | Role | Phone | + +------+ + | Erica Wise MD | PCP | | + +------+ + Encounter Details +--------+ + + + + | Date | Type | Department | Care Team | Description | +--------+ + + + + | 10/01/ | MyChart | Orthopaedics | Rose Allison | Your Upcoming | | 2020 | Encounter | [facility] [place] | MD Shahzad [address] | Appointment | | | | for Health and | [facility] [place] | | | | | Healing [address] | [address] | | | | | Ave [place] for | [phone] | | | | | Health and Healing, | | | | | | | | | | | | Floor [place], [place] | | | | | | [address] | | | | | | [phone] | | | +--------+ + + + + Social History + +-------+ +--------+------+ | Tobacco Use | Types | Packs/Day | Years | Date | | | | | Used | | + +-------+ +--------+------+ | Never Smoker | | | | | + +-------+ +--------+------+ + +---+---+---+ | Smokeless Tobacco: | | | | | Never Used | | | | + +---+---+---+ + + + | Sex Assigned at | Date Recorded | | | | + + + | Not on file | | + + + + + + + | Job Start Date | Occupation | Industry | + + + + | Not on file | Not on file | Not on file | + + + + + + + + | Travel History | Travel Start | Travel End | + + + + + + | No recent travel history available. | + + documented as of this encounter Plan of Treatment +--------+ + + + + | Date | Type | Specialty | Care Team | Description | +--------+ + + + + | 10/20/ | Telephone-S | Orthopedics | Adán Justice RN | | | 2019 | cheduled | | [address] | | | | | | [place], | | | | | | [place] [address] | | | | | | [phone] | | +--------+ + + + + | 10/20/ | Video/TeleH | Pre-operative | [facility], [facility] [address] | | | 2019 | ealth-Sched | Medicine | [address] | | | | uled | | [place] [address] | | +--------+ + + + + | 11/02/ | Procedure | Surgery | | | | 2019 | Pass | | | | +--------+ + + + + | 11/02/ | Hospital | Adult Acute Care | Rose Allison | | | 2019 | Encounter | | MD Shahzad [address] | | | | | | [place], [place] | | | | | | [address] | | | | | | [phone] | | | | | | | | +--------+ + + + + | 11/02/ | Surgery | Surgery | Rose Allison | LEFT TOTAL KNEE | | 2019 | | | MD Shazhad [address] | ARTHROPLASTY, | | | | | [place] | COMPLEX DUE TO PRIOR | | | | | [address] | INFECTION | | | | | [phone] | | | | | | | | +--------+ + + + + | 11/02/ | Erroneous | Orthopedics | Rose Allison | | | 2019 | Enc-IP | | MD Shahzad [address] | | | | | | [place] | | | | | | [address] | | | | | | [phone] | | | | | | | | +--------+ + + + + | 11/17/ | Video/TeleH | Orthopedics | Yasmani Rodrigez | | | 2020 | ealth-Sched | | RADHA Harper [address] | | | | uled | | [address] | | | | | | [place] | | | | | | [address] | | | | | | [phone] | | | | | | | | +--------+ + + + + | 12/16/ | Office | Orthopedics | Rose Allison | | | 2019 | Visit | | MD Shahzad [address] | | | | | | [place] | | | | | | [address] | | | | | | [phone] | | | | | | | | +--------+ + + + + documented as of this encounter Visit Diagnoses Not on filedocumented in this encounter"
--- OUTSIDE RECORDS SUMMARY | ~2019-10-15 | XMS | Encounter Summary ---
Demographics + + + | Address | [address] | | | [place] [address] | + + + | Home Phone | | + + + | Preferred Language | Unknown | + + + | Marital Status | Single | + + + | Worship Affiliation | Unknown | + + + | Race | Unknown | + + + | Ethnic Group | Unknown | + + + Author + + + | Author | [facility] | | | and [place] | + + + | Organization | [facility] | | | and [place] | + + + | Address | Unknown | + + + | Phone | Unavailable | + + + Support + + +---------+ + | Name | Relationship | Address | Phone | + + +---------+ + | Lincoln Martinez | ECON | Unknown | | + + +---------+ + | Lincoln Amrtinez | ECON | Unknown | | + + +---------+ + | Lincoln Lymanry | ECON | Unknown | | + + +---------+ + Care Team Providers + +------+ + | Care Campus Recruiting Intern Name | Role | Phone | + +------+ + | Erica Wise MD | PCP | | + +------+ + Reason for Visit + +--------+ + | Reason | Onset | Comments | | | Date | | + +--------+ + | Coordination Of Care | 08/16/ | NO SHOW, RECALL LETTER PLACED | | | 2019 | | + +--------+ + Encounter Details +--------+ + + + + | Date | Type | Department | Care Team | Description | +--------+ + + + + | 08/16/ | Telephone | [facility] | Michelle Grant | Coordination Of Care | 2019 | | INFECTIOUS DISEASE | Suzi Gamez MD | (NO SHOW, RECALL | | | | [address] | [address] | LETTER PLACED) | | | | [place], [place] | [place] [address] | | | | | [address] | [phone] | | | | | [phone] | | | +--------+ + + + [...] on file | | + + + documented as of this encounter Miscellaneous Notes Telephone Encounter - Kandy Raza Event Attendant - 09/28/2019 3:07 PM PDT09/28/2019 : I attempted to get a hold of patient. I left message requesting for patient to return my ca ll at office. Callback number was provided in message,[phone] option 5. I will wait for callback. ngrid ne Encounter - Roney Squires Medical Assistant - 08/17/2019 4:27 PM PDTAttempted to reach patient again today. No answer, voice mail full. Placed on a recall letter. RONEY ORTEGA CMAElectronically signed by Allyssa Torres at 08/16 4:28 PM PDTTelephone Encounter - Roney Squires Medical Assistant - 020 4:27 PM PDT----- Message from Michelle Grant MD sent at 08/12/2019 4:15 PM PDT ----- Please put patient evaluation engineer back list. HCV not treated. Will need new follow up. Thank you. P DTdocumented in this encounter Plan of Treatment Not on filedocumented as of this encounter Visit Diagnoses Not on filedocumented in this encounter"
--- OUTSIDE RECORDS SUMMARY | ~2019-10-15 | XMS | Encounter Summary ---
Demographics + + + | Address | [address] | | | [place] [address] | + + + | Home Phone | | + + + | Preferred Language | Unknown | + + + | Marital Status | | + + + | Methodist Affiliation | Unknown | + + + | Race | White | + + + | Ethnic Group | Not or | + + + Author + + + | Author | [facility] | + + + | Organization | [facility] | + + + | Address | Unknown | + + + | Phone | Unavailable | + + + Support + + +---------+ + | Name | Relationship | Address | Phone | + + +---------+ + | Rosalina Martinez | ECON | Unknown | | + + +---------+ + Care Team Providers + +------+ + | Care Revenue Agent Name | Role | Phone | + +------+ + | Mohan Bullock DO ALL OPERATOR | PCP | | + +------+ + Reason for Visit + + + | Reason | Comments | + + + | Referral | L knee | + + + Encounter Details +--------+ + + + + | Date | Type | Department | Care Team | Description | +--------+ + + + + | 08/18/ | Abstract | Orthopaedics | No Referring | Referral (L knee) | | 2020 | | [facility] | Provider Per Patient | | | | | for Health and | NO REFERRING | | | | | Healing [address] | PROVIDER PER PT | | | | | [address] [facility] for | | | | | | Health and Healing, | | | | | | Building | | | | | | Floor [place], [place] | | | | | | [address] | | | | | | [phone] | | | +--------+ + + + [...] documented as of this encounter Progress Notes PeterErma - 08/19/2019 11:13 AM PDT Orthopaedics New Patient Record Check List Please ask the following questions: Comments Date requested Records/Imaging received? If so, what format? Where? What would you like to be seen for (body part and laterality)? L knee pain, discuss TKA DOI, if applicable? Fall on stairs 3 months ago Prior Surgery (for this body part)? Yes, when: 12/28/04 & 07/15/15 & 08/09/2015; where: [facility] [place] In referral Have you seen anyone for this yet? Dr. Tsai @ [facility] Orthopedics sx & fracture clinic In referral Do you have a referring provider? yes who: RICKEY CERON [[id number]] Directed referral?: yes - [place] X-Ray Yes, when: 08/04/19; where: [facility] Orthopedics sx & fracture clinic 05/10/19--In impax Faxed [phone] MRI Yes, when: 2015; where: [facility] Orthopedics sx & fracture clinic Faxed [phone] Other Imaging (CT, Ultrasound, etc.) No Is this a W/C injury? no If YES, create referral and complete: .ORTWCNEWPATIENT inside referral Note: We do not accept WC under [place] L&[place] as they do not pay at [place] rates. Other out of state claims will only be accepted if they agree to pay at [place] rates docume nted in writing from adjustor. Can you confirm the insurance we will be billing for this visit? Medicare CLINICAL LAW PROFESSOR MEDICAID/CLINICAL LAW PROFESSOR [place] Note: If OHP, please note which type. E.g. Lewis, [employer] suzanne, [employer], etc.) Reminder: Please create referrals for pts with: HMO, OHP, Lewis, Self-Pay, W/C, TPL an d ED Post- Ops Can you verify your Primary Care Provider? yes who: Dr. Wise Note: Please update Primary Care Provider in MiName. Are you a current smoker or tobacco user? no If YES, please let patient know that they must be 4 weeks smoke/tobacco-free, tested and do cumented by PCP before having a surgical consult. Height & Weight, if unable to locate in notes or chart. Last recorded patient height: No data found for Ht No data found for this vital: BMI Patient reported height: 6'0 Patient reported weight: 220 Note: If over provider BMI preference, for REVIEW. Are you diabetic? no No results found for: A1C Patient reported A1C: n/a Note: If over provider A1C preference, for REVIEW. Medical Review needed? No If yes, create referral Reminders: ? Ask patient if they d like to sign up for [employer] ? Don t forget to pull in CareEveryWhere Additional Comments: documented in this encounte r Plan of Treatment +--------+ + + + + | Date | Type | Specialty | Care Team | Description | +--------+ + + + + | 10/20/ | Telephone-S | Orthopedics | Adán Justice RN | | | 2019 | cheduled | | [address] | | | | | [address] [place] | | | | | | [place] [address] | | | | | | [phone] | | +--------+ + + + + | 10/20/ | Video/TeleH | Pre-operative | 4, [facility] [address] | | | 2019 | ealth-Sched | Medicine | [address] | | | | uled | | [place] [address] | | +--------+ + + + + | 11/02/ | Procedure | Surgery | | | | 2019 | Pass | | | | +--------+ + + + + | 11/02/ | Hospital | Adult Acute Care | Rose Allison | | | 2020 | Encounter | | L, MD [address] | | | | | | [address] [place], [place] | | | | | | [address] | | | | | | [phone] | | | | | | | | +--------+ + + + + | 11/02/ | Surgery | Surgery | Rose Allison | LEFT TOTAL KNEE | | 2019 | | | L, MD [address] | ARTHROPLASTY, | | | | | Ave [place], [place] | COMPLEX DUE TO PRIOR | | | | | [address] | INFECTION | | | | | [phone] | | | | | | | | +--------+ + + + + | 11/02/ | Erroneous | Orthopedics | Rose Allison | | | 2020 | Enc-IP | | L, MD [address] | | | | | | [address] [place], [place] | | | | | | [address] | | | | | | [phone] | | | | | | | | +--------+ + + + + | 11/17/ | Video/TeleH | Orthopedics | Yasmani Rodrigez | | | 2019 | ealth-Sched | | RADHA Harper [address] | | | | [address] | | [address] | | | | | | [facility] [place] | | | | | | [address] | | | | | | [phone] | | | | | | | | +--------+ + + + + | 12/16/ | Office | Orthopedics | Rose Allison | | | 2019 | Visit | | MD Shahzad [address] | | | | | | [place] | | | | | | [address] | | | | | | [phone] | | | | | | | | +--------+ + + + + documented as of this encounter Visit Diagnoses Not on filedocumented in this encounter"
--- OUTSIDE RECORDS SUMMARY | ~2019-10-15 | XMS | Encounter Summary ---
Demographics + + + | Address | [address] | | | [place] [address] | + + + | Home Phone | | + + + | Preferred Language | Unknown | + + + | Marital Status | Single | + + + | Bahai Affiliation | Unknown | + + + | Race | Unknown | + + + | Ethnic Group | Unknown | + + + Author + + + | Author | [facility] | | | and [place] | + + + | Organization | [facility] | | | and [...] Team Providers + +------+ + | Care Pattern Grader Supervisor Name | Role | Phone | + +------+ + | Erica Wise MD | PCP | | + +------+ + Encounter Details +--------+ + + + + | Date | Type | Department | Care Team | Description | +--------+ + + + + | 02/21/ | Orders Only | [facility] OP | Conversion | | | 2018 | | CONVERSION [address] | Transaction, | | | | | [address] | Provider Unknown | | | | | [place] | [phone] | | | | | [address] | | | | | | [phone] | | | +--------+ + + + [...]
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
--- OUTSIDE RECORDS SUMMARY | ~2019-10-15 | XMS | Clinical Summary ---
Demographics + + + | Address | [address] | | | [place] [address] | + + + | Home Phone | | + + + | Preferred Language | Unknown | + + + | Marital Status | | + + + | Latter-Day Affiliation | Unknown | + + + [...] Team Providers + +------+ + | Care Coremaking Machine Setter Name | Role | Phone | + +------+ + | Erica Wise MD | PCP | | + +------+ + Source Comments SUKHJINDER is fully live on both [facility] Ambulatory and [facility] InPatient.Counts Include [facility] Allergies + + + + + [...] | Overview: RU 06/01 100-fasting ?? / Lamkin 0.4 | + + + + + [...] | | | | | [address] [place], | | | | | | [place] [address] | | | | | | [phone] | | +--------+ + + + + | 10/20/ | Video/TeleH | Pre-operative | 4, [facility] Optical Instrument Assembly Supervisor [address] | | | 2020 | ealth-Sched | Medicine | [address] | | | | [address] | | [place] [address] | | +--------+ + + + + | 11/02/ | Procedure | Surgery | | | | 2019 | Pass | | | | +--------+ + + + + | 11/02/ | Hospital | Adult Acute Care | Rose Allison | | | 2019 | Encounter | | MD Shahzad [address] | | | | | | [place], [place] | | | | | | [address] | | | | | | [phone] | | | | | | | | +--------+ + + + + | 11/02/ | Surgery | Surgery | Rose Allison | LEFT TOTAL KNEE | | 2019 | | | L, MD [address] | ARTHROPLASTY, | | | | | [address] [place], [place] | COMPLEX DUE TO PRIOR | | | | | [address] | INFECTION | | | | | [phone] | | | | | | | | +--------+ + + + + | 11/02/ | Erroneous | Orthopedics | Rose Allison | | | 2019 | Enc-IP | | L, MD [address] | | | | | | [address] [place], [place] | | | | | | [address] | | | | | | [phone] | | | | | | | | +--------+ + + + + | 11/17/ | Video/TeleH | Orthopedics | Yasmani Rodrigez | | | 2019 | ealth-Sched | | RADHA Harper [address] | | | | uled | | [address] [facility] [address] | | | | | | [place], [place] | | | | | | [address] | | | | | | [phone] | | | | | | | | +--------+ + + + + | 12/16/ | Office | Orthopedics | Rose Allison | | | 2020 | Visit | | MD Shahzad [address] | | | | | | [place], [place] | | | | | | [address] | | | | | | [phone] | | | | | | | [...] | MEDICA | xxxxxxxxxxx | 07/27/19 | [phone] | [address] | Medica | | | RE A & | | 19-Pre | 1 | 2 | re | | | B | | sent | | [place] | | | | | | | | [phone] | | + +--------+ +--------+ + +--------+ [...] | 1971 | [phone] | [place] [address] | | | marc | | | 6 (Home) | | + +--------+ +--------+ + + | Jan Martinez | Worker | Self | [birth year] | | [address] | | | s Comp | | 1971 | [phone] | [place] [address] | | | | | | 6 ([place]) | | + +--------+ +--------+ + +"
--- OUTSIDE RECORDS SUMMARY | ~2019-10-15 | XMS | Encounter Summary ---
Demographics + + + | Address | [address] | | | [place] [address] | + + + | Home Phone | | + + + | Preferred Language | Unknown | + + + | Marital Status | Single | + + + | Sabianist Affiliation | Unknown | + + + | Race | Unknown | + + + | Ethnic Group | Unknown | + + + Author + + + | Author | [facility] | | | and [place] | + + + | Organization | [facility] | | | and [...] Team Providers + +------+ + | Care Sleep Lab Technologist Name | Role | Phone | + +------+ + PCP | Unavailable | + +------+ + Encounter Details +--------+ + + + + | Date | Type | Department | Care Team | Description | +--------+ + + + + | 06/14/ | Hospital | [facility] GENER[facility] OP | Conversion | Phlebitis and | | 1994 | Encounter | CONVERSION [address] | Transaction, | thrombophlebitis of | | | | [address] | Provider Unknown | unspecified site | | | | [place], [place] | | | | | | [address] | (Fax) | | | | | [phone] | | | +--------+ + + + [...] + | Diagnosis | + + | Phlebitis and thrombophlebitis of unspecified site | + + documented in this encounter"
--- OUTSIDE RECORDS SUMMARY | ~2019-10-15 | XMS | Encounter Summary ---
Demographics + + + | Address | [address] | | | [place] [address] | + + + | Home Phone | | + + + | Preferred Language | Unknown | + + + | Marital Status | Single | + + + | Pentecostal Affiliation | Unknown | + + + | Race | Unknown | + + + | Ethnic Group | Unknown | + + + Author + + + | Author | [facility] | | | and [place] | + + + | Organization | [facility] | | | [...] Team Providers + +------+ + | Care Mobile Home Set Up Person Name | Role | Phone | + +------+ + PCP | Unavailable | + +------+ + Encounter Details +--------+ + + + + | Date | Type | Department | Care Team | Description | +--------+ + + + + | 05/22/ | Hospital | [facility] GENERIC IP | Conversion | Pain | | 2014 | Encounter | CONVERSION [address] | Transaction, | | | | | [address] | Provider Unknown | | | | | [place], [place] | [phone] | | | | | [address] | | | | | | [phone] | | | +--------+ + + + [...] | + +--------+ + + + | FL ARTHROGRAM | Routin | 02/05/2013 | | Results for this | | SHOULDER RIGHT | e | 1:14 AM | | procedure are in the | | | | PST | | results section. | + +--------+ + + + documented in this encounter Results FL Arthrogram Shoulder Right (02/05/2013 1:14 AM PST) + + | Specimen | + + | | + + + + + | Narrative | Performed At | + + + | This is a non-reportable procedure without a radiologist report and | | | is used for image storage only | | + + + + + | Procedure Note | + + | Clifford Yun - 10/10/2018 7:03 PM PDT This is a non-reportable procedure | | without a radiologist report and isused for image storage only | + + documented in this encounter Visit Diagnoses + + | Diagnosis | + + | Pain Generalized pain | + + documented in this encounter"
--- OUTSIDE RECORDS SUMMARY | ~2019-10-15 | XMS | Encounter Summary ---
Demographics + + + | Address | [address] | | | [place] [address] | + + + | Home Phone | | + + + | Preferred Language | Unknown | + + + | Marital Status | | + + + | Restoration Affiliation | Unknown | + + + | Race | White | + + + | Ethnic Group | Not or | + + + Author + + + | Author | [facility] | + + + | Organization | [facility] | + + + | Address | Unknown | + + + | Phone | Unavailable | + + + Support + + +---------+ + | Name | Relationship | Address | Phone | + + +---------+ + | Rosalina Martinez | ECON | Unknown | | + + +---------+ + Care Team Providers + +------+ + | Care Assessor Name | Role | Phone | + +------+ + | Mohan Bullock NP | PCP | | + +------+ + Encounter Details +--------+ + + + + | Date | Type | Department | Care Team | Description | +--------+ + + + + | 09/15/ | Abstract | [facility] | Daniel Brasher, | | | 2010 | | [place] [address] [address] | [place] | | | | | [address] | | | | | | for Health and | | | | | | Healing, [address] | | | | | | [place], [place] | | | | | | [address] | | | | | | [phone] | | | +--------+ + + + [...] Justice RN | | | 2019 | rolf | | [address] | | | | | | [place], | | | | | | [place] [address] | | | | | | [phone] | | +--------+ + + + + | 10/20/ | Video/TeleH | Pre-operative | 4, [facility] [employer] [address] | | | 2020 | ealth-Sched | Medicine | [address] | | | | uled | | [place] [address] | | +--------+ + + + + | 11/02/ | Procedure | Surgery | | | | 2019 | Pass | | | | +--------+ + + + + | 11/02/ | Hospital | Adult Acute Care | Rose Allison | | | 2019 | Encounter | | MD Shahzad [address] | | | | | | Ave [place], [place] | | | | | | [address] | | | | | | [phone] | | | | | | | | +--------+ + + + + | 11/02/ | Surgery | Surgery | Rose Allison | LEFT TOTAL KNEE | | 2019 | | | LMD [address] | ARTHROPLASTY, | | | | | Ave [place], [place] | COMPLEX DUE TO PRIOR | | | | | [address] | INFECTION | | | | | [phone] | | | | | | | | +--------+ + + + + | 11/02/ | Erroneous | Orthopedics | Rose Allison | | | 2019 | Enc-IP | | MD Shahzad [address] | | | | | | Ave [place], [place] | | | | | | [address] | | | | | | [phone] | | | | | | | | +--------+ + + + + | 11/17/ | Video/TeleH | Orthopedics | Yasmani Rodrigez | | | 2019 | [facility] | | RADHA Harper [address] | | | | uled | | [address] [facility] [address] | | | | | | [facility], [place] | | | | | | [address] | | | | | | [phone] | | | | | | | | +--------+ + + + + | 12/16/ | Office | Orthopedics | Rose Allison | | | 2020 | Visit | | MD Shahzad [address] | | | | | | [place] | | | | | | [address] | | | | | | [phone] | | | | | | | | +--------+ + + + + documented as of this encounter Visit Diagnoses Not on filedocumented in this encounter"
--- OUTSIDE RECORDS SUMMARY | ~2019-10-15 | XMS | Encounter Summary ---
Demographics + + + | Address | [address] | | | [place] [address] | + + + | Home Phone | | + + + | Preferred Language | Unknown | + + + | Marital Status | Single | + + + | Mormonism Affiliation | Unknown | + + + | Race | Unknown | + + + | Ethnic Group | Unknown | + + + Author + + + | Author | [facility] | | | and [place] | + + + | Organization | [facility] | | | [...] Team Providers + +------+ + | Care Anesthesiology Physician Name | Role | Phone | + +------+ + PCP | Unavailable | + +------+ + Encounter Details +--------+ + + + + | Date | Type | Department | Care Team | Description | +--------+ + + + + | 03/14/ | Emergency | [facility] | Conversion | Pain in joint, lower | | 1996 | | [facility]ENTER | Transaction, | leg | | | | EMERGENCY CENTER | Provider Unknown | | | | | [address] | | | | | | [place], [place] | (Fax) | | | | | [address] | | | | | | [phone] | | | +--------+ + + + [...]
--- OUTSIDE RECORDS SUMMARY | ~2019-10-15 | XMS | Encounter Summary ---
Demographics + + + | Address | [address] | | | [place] [address] | + + + | Home Phone | | + + + | Preferred Language | Unknown | + + + | Marital Status | Single | + + + | Caodaism Affiliation | Unknown | + + + | Race | Unknown | + + + | Ethnic Group | Unknown | + + + Author + + + | Author | [facility] | | | and [place] | + + + | Organization | [facility] | | | and [...] Team Providers + +------+ + | Care Social Service Agency Director Name | Role | Phone | + +------+ + PCP | Unavailable | + +------+ + Encounter Details +--------+ + + + + | Date | Type | Department | Care Team | Description | +--------+ + + + + | 07/24/ | Hospital | [facility] | Conversion | Pain in joint, lower | | 1994 | Encounter | MEDICAL CENTER | Transaction, | leg | | | | OUTPATIENT | Provider Unknown | | | | | PROCEDURES [address] | [phone] | | | | | [address] | | | | | | [place], [place] | | | | | | [address] | | | | | | [phone] | | | +--------+ + + + [...]
--- OUTSIDE RECORDS SUMMARY | ~2019-10-15 | XMS | Encounter Summary ---
Demographics + + + | Address | [address] | | | [place] [address] | + + + | Home Phone | | + + + | Preferred Language | Unknown | + + + | Marital Status | | + + + | Rastafari Affiliation | Unknown | + + + [...] Team Providers + +------+ + | Care Race Car Mechanic Name | Role | Phone | + +------+ + | Erica Wise MD | PCP | | + +------+ + Reason for Visit +--------+ + | Reason | Comments | +--------+ + | Other | | +--------+ + Encounter Details +--------+ + + + + | Date | Type | Department | Care Team | Description | +--------+ + + + + | 10/13/ | Telephone | Orthopaedics | Rose Allison | Other | | 2020 | | [facility] [place] | MD Shahzad [address] | | | | | for Health and | Ave [place], [place] | | | | | Healing [address] | [address] | | | | | Ave [place] for | [phone] | | | | | Health and Healing, | | | | | | [facility] | | | | | | [place], [place] | | | | | | [address] | | | | | | [phone] | | | +--------+ + + + [...] Justice RN | | | 2019 | azeemduyazmin | | [address] | | | | | | [place], | | | | | | [place] [address] | | | | | | [phone] | | +--------+ + + + + | 10/20/ | Video/TeleH | Pre-operative | 4, [facility] [employer] Consultant [address] | | | 2019 | ealth-Sched | Medicine | [address] | | | | uled | | [place] [address] | | +--------+ + + + + | 11/02/ | Procedure | Surgery | | | | 2019 | Pass | | | | +--------+ + + + + | 11/02/ | Hospital | Adult Acute Care | Rose Allison | | | 2020 | Encounter | | L, MD [address] | | | | | | Ave [place], [place] | | | | | | [address] | | | | | | [phone] | | | | | | | | +--------+ + + + + | 11/02/ | Surgery | Surgery | Rose Allison | LEFT TOTAL KNEE | | 2019 | | | L, MD [address] | ARTHROPLASTY, | | | | | Ave [place], [place] | COMPLEX DUE TO PRIOR | | | | | [address] | INFECTION | | | | | [phone] | | | | | | | | +--------+ + + + + | 11/02/ | Erroneous | Orthopedics | Rose Allison | | | 2020 | Enc-IP | | L, MD [address] | | | | | | Ave [place], [place] | | | | | | [address] | | | | | | [phone] | | | | | | | | +--------+ + + + + | 11/17/ | Video/TeleH | Orthopedics | Yasmani Rodrigez | | | 2019 | ealt-Sched | | RADHA Hraper [address] | | | | uled | | [address] | | | | | | [place], [place] | | | | | | [address] | | | | | | [phone] | | | | | | | | +--------+ + + + + | 12/16/ | Office | Orthopedics | Rose Allison | | | 2019 | Visit | | MD Shahzad [address] | | | | | | [place], [place] | | | | | | [address] | | | | | | [phone] | | | | | | | | +--------+ + + + + documented as of this encounter Visit Diagnoses Not on filedocumented in this encounter"
--- OUTSIDE RECORDS SUMMARY | ~2019-10-15 | XMS | Encounter Summary ---
Demographics + + + | Address | [address] | | | [place] [address] | + + + | Home Phone | | + + + | Preferred Language | Unknown | + + + | Marital Status | Single | + + + | Scientology Affiliation | Unknown | + + + | Race | Unknown | + + + | Ethnic Group | Unknown | + + + Author + + + | Author | [facility] | | | and [place] | + + + | Organization | [facility] | | | and [place] | + + + | Address | Unknown | + + + | Phone | Unavailable | + + + Support + + +---------+ + | Name | Relationship | Address | Phone | + + +---------+ + | Lincoln Martinez | ECON | Unknown | | + + +---------+ + | Lincoln Maritnez | ECON | Unknown | | + + +---------+ + | Lincoln Martinez | ECON | Unknown | | + + +---------+ + Care Team Providers + +------+ + | Care Nibbler Operator Name | Role | Phone | + +------+ + PCP | Unavailable | + +------+ + Encounter Details +--------+ + + + + | Date | Type | Department | Care Team | Description | +--------+ + + + + | 05/29/ | Hospital | [facility] | Conversion | Other tear of | | 1995 | Encounter | MEDICAL CENTER | Transaction, | cartilage or | | | | OUTPATIENT | Provider Unknown | meniscus of knee, | | | | PROCEDURES [address] | [phone] | current | | | | [address] | | | | | | [place], [place] | | | | | | [address] | | | | | | [phone] | | | +--------+ + + + [...]
--- OUTSIDE RECORDS SUMMARY | ~2019-10-15 | XMS | Encounter Summary ---
Demographics + + + | Address | [address] | | | [place] [address] | + + + | Home Phone | | + + + | Preferred Language | Unknown | + + + | Marital Status | Single | + + + | Orthodox Affiliation | Unknown | + + + | Race | Unknown | + + + | Ethnic Group | Unknown | + + + Author + + + | Author | [facility] | | | and [place] | + + + | Organization | [facility] | | [...] Team Providers + +------+ + | Care Gleason Operator Name | Role | Phone | + +------+ + PCP | Unavailable | + +------+ + Encounter Details +--------+ + + + + | Date | Type | Department | Care Team | Description | +--------+ + + + + | 04/07/ | Hospital | [facility] | Mak Mooney, | | | 1996 - | Encounter | CENTER SURGICAL [address] | [address] | | | | | [address] | [place] [address] | | | 04/08/ | | [place], [place] | [phone] | | | 1996 | | [address] | | | | | | [phone] | | | +--------+ + + + [...]
--- OUTSIDE RECORDS SUMMARY | ~2019-10-15 | XMS | Encounter Summary ---
Demographics + + + | Address | [address] | | | [place] [address] | + + + | Home Phone | | + + + | Preferred Language | Unknown | + + + | Marital Status | Single | + + + | Druze Affiliation | Unknown | + + + | Race | Unknown | + + + | Ethnic Group | Unknown | + + + Author + + + | Author | [facility] | | | and [place] | + + + | Organization | [facility] | | | [...] Team Providers + +------+ + | Care Lockstitch Waistband Setter Name | Role | Phone | + +------+ + | Erica Wise MD | PCP | | + +------+ + Reason for Visit + +--------+ + | Reason | Onset | Comments | | | Date | | + +--------+ + | Medication Prior | 10/14/ | PA #2 INITIATED FOR HCV ADDIE 8WK [place] | | Authorization | 2019 | | + +--------+ + Encounter Details +--------+ + + + + | Date | Type | Department | Care Team | Description | +--------+ + + + + | 10/14/ | Telephone | [facility] | Kandy Raza, | Medication Prior | | 2018 | | INFECTIOUS DISEASE | Stock Checkerer | Authorization (PA #2 | | | | [address] | | INITIATED FOR HCV | | | | [place] | | ADDIE 8WK [place] ) | | | | [address] | | | | | | [phone] | | | +--------+ + + + [...] encounter Miscellaneous Notes Telephone Encounter - Kandy Raza, Stock Checkerer - 07/30/2019 2:33 PM PDT07/30/2019 : I called and spoke to patient. Patient was verified using 2 patient identifiers. I relayed providers message above. Patient voiced understanding and had no questions or concerns. Patient would like lab orders to be faxed to [facility] and he stated he will go to lab tomorrow morning 07/31/2019 to have labs drawn. F/U appointment was scheduled with Dr. Andres martin for 08/12/2019. -Orders were faxed on 07/30/2019 and fax confirmation was received. elepho ne Encounter - Kandy Raza Medical Assistant - 06/10/2019 3:15 PM PDTI attempted to get a hold of patient. Iwas unable to leave message as VM is full. I will attempt again later . elepho ne Encounter - Kandy Raza Medical Assistant - 05/27/2019 9:04 AM PDTI attempted to get a hold of patient. I was unable to leave message as VM is full. I will attempt again later. elephon e Encounter - Kandy Raza Medical Assistant - 05/08/2019 9:51 AM PDTI attempted to get a hold of patient. I was unable to leave message as VM is full. I will attempt again later.E lectronically signed by Allyssa Bledsoe at 05/08/2019 9:52 AM PDTTelephone Encounter - Kandy Raza Medical Assistant - 04/16/2019 8:53 AM PSTI attempted to get a hold of patient. I left message requesting for patient to return my call at office. [facility] was provided in message,[phone] option 5. I will wait for callback. elepho ne Encounter - Kandy Raza Medical Assistant - 04/16/2019 8:53 AM PST 04/15/2019: Message Received: Yesterday Message Contents MD Kandy Mendez, Stock Checkerer Ma'am, can we actually have the patient do labs and then schedule follow up with me 1-2 wee ks after labs done? Thanks. elepho ne Encounter - Kandy Raza Medical Assistant - 04/16/2019 8:51 AM PST04/05/2019: Received fax from [employer] for Mavyret. Patient was denied Mavyret as their preferred is Tristen. I provided copy of Denial to Dr. Grant for review. elepho ne Encounter - Kandy Raza Medical Assistant - 03/31/2019 4:01 PM PSTPer [facility] request, I faxed over referral once again. Referral contains lab results, progress notes, and imaging report with patient demographics. Fax confirmation was received. elephapril ne Encounter - Kandy Raza Medical Assistant - 03/31/2019 12:38 PM PSTReceived patient s tatus report from [facility]. Report states " Can you please fax us chart notes and we can submit PA to new Medicare Drug Plan, Thanks." elephone Encounter - Kandy Raza Medical Assistant - 03/20/2019 3:25 PM PSTDarr in called office from [facility] and is requesting referral packet to be sent to them once again. I will prepare and send to Luis Armando at [place] [facility].Electronically s igned by Allyssa Bledsoe at 03/20/2019 3:26 PM PSTTelephone Encounter - Kandy Monroy Medical Assistant - 03/20/2019 3:24 PM PSTReceived call from patient stating he called [facility] and that he gave them his insurance information. Patient is all good to go. elepho ne Encounter - Kandy Raza Medical Assistant - 03/06/2019 10:30 AM PST03/06/2019: I called and spoke to patient. I verified patient using 2 patient identifiers. I let patien t know I was calling to F/U with him as [facility] has been trying to contact soraida monreal but has had no luck. I let him know that his referral was placed on hold as they do not garcia ve an active insurance on file. Patient stated that he has [facility] but it just rings and rings. Patient stated he wasn't sure if he had correct # . Patient was driving and stated that once he gets home he will call me back to compare #s t hat way he can call pharmacy today to get this going again since it has been 1 year since th is whole process was started. I provided him callback number and option to get A hold of me . eleph one Encounter - Kandy Raza Medical Assistant - 03/06/2019 10:24 AM PST03/06/2019: [facility] to [facility] status and to see if there has been any updates or i f patient has call their office to update insurance information. Avi stated that they tried calling patient in 3 different occasions, requesting callback. However it is on hold becaus e patient has not called back. I let him know I will try and get a hold of patient and I will direct him their way. Electr onically signed by Allyssa Bledsoe at 03/06/2019 10:33 AM PSTTelephone Enco unter - Kandy Raza Medical Assistant - 03/04/2019 3:54 PM PSTI attempted to get a hold of patient. I left message requesting for patient to return my call at office. Callback num alessandro was provided in message,[phone] option 5. I will wait for callback. elepho ne Encounter - Kandy Raza Medical Assistant - 12/11/2018 1:40 PM PDTI called and spoke to patient. I let patient know I was calling to F/U with him. Vonda stated that his insur tetee switched to Medicare. I provided [facility] for patient to call and update insurance i nformation. Patient voiced understanding and stated if he had any questions he will call me back. elepho ne Encounter - Kandy Raza Medical Assistant - 12/11/2018 1:36 PM PDTReceived patient s tatus report from [facility] on 10/30/2018. Report states " Patient has no active insurance coverage. We reached out to patient and got no response." elephone Encounter - Kandy Raza Medical Assistant - 10/14/2018 9:19 AM PDTWe re veived fax on 10/02/2018 from [employer] for additional information. Form was on Dr. Boss s desk since she was out of clinic. Form was faxed to [employer] on 10/13/2018. Fax confirmation was reveived. eloydaphapril ne Encounter - Kandy Raza Medical Assistant - 10/14/2018 9:19 AM PDT Care Coordination (PA #2 INITIATED FOR HCV MAVYRET 8WK [place]) You routed conversation to You 2 weeks ago You 2 weeks ago I faxed Hep C Enrollment form for Mavyret 8WK treatment to [facility]. I faxed the pack et with required documents such as chart notes, insurance cards, demographics, labs, imaging report, and RX prescription. I received fax confirmation that it was sent successfully. doinocencio wang in this encounter Plan of Treatment Not on filedocumented as of this encounter Visit Diagnoses Not on filedocumented in this encounter
--- OUTSIDE RECORDS SUMMARY | ~2019-10-15 | XMS | Encounter Summary ---
Demographics + + + | Address | [address] | | | [place] [address] | + + + | Home Phone | | + + + | Preferred Language | Unknown | + + + | Marital Status | Single | + + + | Alevism Affiliation | Unknown | + + + | Race | Unknown | + + + | Ethnic Group | Unknown | + + + Author + + + | Author | [facility] | | | and [place] | + + + | Organization | [facility] | | | and [...] Team Providers + +------+ + | Care Assistant Grocery Store Manager Name | Role | Phone | + +------+ + | Erica Wise MD | PCP | | + +------+ + Encounter Details +--------+ + + + + | Date | Type | Department | Care Team | Description | +--------+ + + + + | 09/10/ | Orders Only | [facility] | Conversion | | | 2019 | | CONVERSION DEP [address] | Transaction, | | | | | [address] | Provider Unknown | | | | | [place] | [phone] | | | | | [address] | | | | | | [phone] | | | +--------+ + + + [...]
--- OUTSIDE RECORDS SUMMARY | ~2019-10-15 | XMS | Encounter Summary ---
Demographics + + + | Address | [address] | | | [place] [address] | + + + | Home Phone [...] + + | Author | [facility] | | | and [place] | + + + | Organization | [facility] | | | and [...] Team Providers + +------+ + | Care Manager Business Systems Name | Role | Phone | + +------+ + PCP | Unavailable | + +------+ + Encounter Details +--------+ + + + + | Date | Type | Department | Care Team | Description | +--------+ + + + + | 06/20/ | Hospital | [facility] | Conversion | Tear of medial | | 1994 | Encounter | [facility] | Transaction, | cartilage or | | | | OUTPATIENT | Provider Unknown | meniscus of knee, | | | | PROCEDURES [address] | [phone] | current | | | | [address] | | | | | | [place], [place] | | | | | | [address] | | | | | | [phone] | | | +--------+ + + + [...] + | Diagnosis | + + | Tear of medial cartilage or meniscus of knee, current | + + documented in this encounter"
--- OUTSIDE RECORDS SUMMARY | ~2019-10-15 | XMS | Encounter Summary ---
Demographics + + + | Address | [address] | | | [place] [address] | + + + | Home Phone | | + + + | Preferred Language | Unknown | + + + | Marital Status | | + + + | Taoism Affiliation | Unknown | + + + | Race | White | + + + | Ethnic Group | Not or | + + + Author + + + | Author | [facility] | + + + | Organization | [facility] | + + + | Address | Unknown | + + + | Phone | Unavailable | + + + Support + + +---------+ + | Name | Relationship | Address | Phone | + + +---------+ + | Rosalina Martinez | ECON | Unknown | | + + +---------+ + Care Team Providers + +------+ + | Care Visitor Services Information Assistant Name | Role | Phone | + +------+ + | Mohan Bullock NP | PCP | | + +------+ + Encounter Details +--------+ + + + + | Date | Type | Department | Care Team | Description | +--------+ + + + + | 01/28/ | Abstract | Orthopaedics | Note, Orthopedics | | | 2018 | | [facility] | Clinic | | | | | for Health and | | | | | | Healing [address] | | | | | | [facility] | | | | | | Health and Healing, | | | | | | Building | | | | | | Floor [place], [place] | | | | | | [address] | | | | | | [phone] | | | +--------+ + + + [...] documented in this encounter Plan of Treatment +--------+ + + + + | Date | Type | Specialty | Care Team | Description | +--------+ + + + + | 10/20/ | Telephone-S | Orthopedics | Adán Justice RN | | | 2020 | cheduled | | [address] | | | | | | [address] [facility] | | | | | | [place] [address] | | | | | | [phone] | | +--------+ + + + + | 10/20/ | Video/TeleH | Pre-operative | 4, [facility] Electromechanisms Design Drafter [address] | | | 2020 | ealth-Sched | Medicine | [address] | | | | uled | | [place] [address] | | +--------+ + + + + | 11/02/ | Procedure | Surgery | | | | 2019 | Pass | | | | +--------+ + + + + | 11/02/ | Hospital | Adult Acute Care | Rose Allison | | | 2019 | Encounter | | MD Shahzad [address] | | | | | | [place], [place] | | | | | | [address] | | | | | | [phone] | | | | | | | | +--------+ + + + + | 11/02/ | Surgery | Surgery | Rose Allison | LEFT TOTAL KNEE | | 2019 | | | L, MD [address] | ARTHROPLASTY, | | | | | Ave [place], [place] | COMPLEX DUE TO PRIOR | | | | | [address] | INFECTION | | | | | [phone] | | | | | | | | +--------+ + + + + | 11/02/ | Erroneous | Orthopedics | Rose Allison | | | 2019 | Enc-IP | | L, MD [address] | | | | | | [address] [place], [place] | | | | | | [address] | | | | | | [phone] | | | | | | | | +--------+ + + + + | 11/17/ | Video/TeleH | Orthopedics | Yasmani Rodrigez | | | 2019 | ealth-Sched | | RADHA Harper [address] | | | | uled | | [address] [facility] [address] | | | | | | [place], [place] | | | | | | [address] | | | | | | [phone] | | | | | | | | +--------+ + + + + | 12/16/ | Office | Orthopedics | Rose Allison | | | 2020 | Visit | | MD Shahzad [address] | | | | | | [place], [place] | | | | | | [address] | | | | | | [phone] | | | | | | | | +--------+ + + + + documented as of this encounter Visit Diagnoses Not on filedocumented in this encounter"
--- OUTSIDE RECORDS SUMMARY | ~2019-10-15 | XMS | Encounter Summary ---
Demographics + + + | Address | [address] | | | [place] [address] | + + + | Home Phone | | + + + | Preferred Language | Unknown | + + + | Marital Status | | + + + | Jewish Affiliation | Unknown | + + + | Race | White | + + + | Ethnic Group | Not or | + + + Author + + + | Author | [facility] | + + + | Organization | [facility] | + + + | Address | Unknown | + + + | Phone | Unavailable | + + + Support + + +---------+ + | Name | Relationship | Address | Phone | + + +---------+ + | Rosalina Martinez | ECON | Unknown | | + + +---------+ + Care Team Providers + +------+ + | Care Counselor Aide Name | Role | Phone | + +------+ + | Mohan Bullock ROUTE DELIVERER | PCP | | + +------+ + Encounter Details +--------+ + + + + | Date | Type | Department | Care Team | Description | +--------+ + + + + | 09/06/ | Documentati | [facility] | Adán Justice RN | | | 2020 | on | Therapy Services at | [address] | | | | | [facility] | [place], | | | | | [address] | [place] [address] | | | | | [facility] | [phone] | | | | | and Healing, | | | | | | Building | | | | | | [place], [place] | | | | | | [address] | | | | | | [phone] | | | +--------+ + + + [...] | 2019 | cheduled | | [address] | | | | | | [place], | | | | | | [place] [address] | | | | | | [phone] | | +--------+ + + + + | 10/20/ | Video/TeleH | Pre-operative | 4, [facility] [place] Operator [address] | | | 2019 | ealth-Sched | Medicine | [address] | | | | uled | | [place] [address] | | +--------+ + + + + | 11/02/ | Procedure | Surgery | | | | 2019 | Pass | | | | +--------+ + + + + | 11/02/ | Hospital | Adult Acute Care | Rose Allison | | | 2020 | Encounter | | MD Shahzad [address] | | | | | | [place] | | | | | | [address] | | | | | | [phone] | | | | | | | | +--------+ + + + + | 11/02/ | Surgery | Surgery | Rose Allison | LEFT TOTAL KNEE | | 2019 | | | MD Shahzad [address] | ARTHROPLASTY, | | | | | Ave [place], [place] | COMPLEX DUE TO PRIOR | | | | | [address] | INFECTION | | | | | [phone] | | | | | | | | +--------+ + + + + | 11/02/ | Erroneous | Orthopedics | Rose Allison | | | 2019 | Enc-IP | | MD Shahzad [address] | | | | | | Ave [place], [place] | | | | | | [address] | | | | | | [phone] | | | | | | | | +--------+ + + + + | 11/17/ | Video/TeleH | Orthopedics | Yasmani Rodrigez | | | 2019 | ealth-Sched | | RADHA Harper [address] | | | | uled | | [address] | | | | | | [place], [place] | | | | | | [address] | | | | | | [phone] | | | | | | | | +--------+ + + + + | 12/16/ | Office | Orthopedics | Rose Allison | | | 2020 | Visit | | MD Shahzad [address] | | | | | | [place], [place] | | | | | | [address] | | | | | | [phone] | | | | | | | | +--------+ + + + + documented as of this encounter Visit Diagnoses Not on filedocumented in this encounter"
--- OUTSIDE RECORDS SUMMARY | ~2019-10-15 | XMS | Encounter Summary ---
Demographics + + + | Address | [address] | | | [place] [address] | + + + | Home Phone | | + + + | Preferred Language | Unknown | + + + | Marital Status | Single | + + + | Jainism Affiliation | Unknown | + + + [...] Team Providers + +------+ + | Care Tailings Worker Name | Role | Phone | + [...] Provider Unknown | | | | | [place], [place] | [phone] | | | | | [address] | | | | | | [phone] | | | +--------+ + + + [...]
--- OUTSIDE RECORDS SUMMARY | ~2019-10-15 | XMS | Encounter Summary ---
Demographics + + + | Address | [address] | | | [place] [address] | + + + | Home Phone | | + + + | Preferred Language | Unknown | + + + | Marital Status | | + + + | Sikhism Affiliation | Unknown | + + + | Race | White | + + + | Ethnic Group | Not or | + + + Author + + + | Author | [facility] | + + + | Organization | [facility] | + + + | Address | Unknown | + + + | Phone | Unavailable | + + + Support + + +---------+ + | Name | Relationship | Address | Phone | + + +---------+ + | Rosalina Martinez | ECON | Unknown | | + + +---------+ + Care Team Providers + +------+ + | Care Cleaner Name | Role | Phone | + +------+ + | Erica Wise MD | PCP | | + +------+ + Encounter Details +--------+ + + + + | Date | Type | Department | Care Team | Description | +--------+ + + + + | 09/30/ | Telephone | Infectious | Sonal Liao, | | | 2019 | | Diseases at [facility] | [address] | | | | | [address] | [address] | | | | | Loop Physician's | [place], [place] | | | | | [place], unm hospital floor | [address] | | | | | [place], [place] | [phone] | | | | | [address] | | | | | | [phone] | | | +--------+ + + + [...] | | | | | [place], | | | | | | [place] [address] | | | | | | [phone] | | +--------+ + + + + | 10/20/ | Video/TeleH | Pre-operative | 4, [facility] Repeat Photocomposing Machine Operator [address] | | | 2019 | ealth-Sched | Medicine | [address] | | | | uled | | [place] [address] | | +--------+ + + + + | 11/02/ | Procedure | Surgery | | | | 2019 | Pass | | | | +--------+ + + + + | 11/02/ | Hospital | Adult Acute Care | Rose Allison | | | 2019 | Encounter | | MD Shahzad [address] | | | | | | [place], [place] | | | | | | [address] | | | | | | [phone] | | | | | | | | +--------+ + + + + | 11/02/ | Surgery | Surgery | Rose Allison | LEFT TOTAL KNEE | | 2019 | | | MD Shahzad [address] | ARTHROPLASTY, | | | | | Ave [place], [place] | COMPLEX DUE TO PRIOR | | | | | [address] | INFECTION | | | | | [phone] | | | | | | | | +--------+ + + + + | 11/02/ | Erroneous | Orthopedics | Rose Allison | | | 2019 | Enc-IP | | MD Shahzad [address] | | | | | | [place], [place] | | | | | | [address] | | | | | | [phone] | | | | | | | | +--------+ + + + + | 11/17/ | Video/TeleH | Orthopedics | Yasmani Rodrigez | | | 2019 | ealth-Sched | | RADHA Harper [address] | | | | uled | | [address] | | | | | | [place], [place] | | | | | | [address] | | | | | | [phone] | | | | | | | | +--------+ + + + + | 12/16/ | Office | Orthopedics | Rose Allison | | | 2020 | Visit | | MD Shahzad [address] | | | | | | [place], [place] | | | | | | [address] | | | | | | [phone] | | | | | | | | +--------+ + + + + documented as of this encounter Visit Diagnoses Not on filedocumented in this encounter"
--- OUTSIDE RECORDS SUMMARY | ~2019-10-15 | XMS | Encounter Summary ---
Demographics + + + | Address | [address] | | | [place] [address] | + + + | Home Phone | | + + + | Preferred Language | Unknown | + + + | Marital Status | | + + + | Synagogue Affiliation | Unknown | + + + | Race | White | + + + | Ethnic Group | Not or | + + + Author + + + | Author | [facility] | + + + | Organization | [facility] | + + + | Address | Unknown | + + + | Phone | Unavailable | + + + Support + + +---------+ + | Name | Relationship | Address | Phone | + + +---------+ + | Rosalina Martinez | ECON | Unknown | | + + +---------+ + Care Team Providers + +------+ + | Care Beveller Operator Name | Role | Phone | + +------+ + | Mohan Bullock BULK SEALER | PCP | | + +------+ + Reason for Referral PROC - Inpatient Surgery (Routine) + +--------+ + + + + | Status | Reason | Specialty | Diagnoses / | Referred By | Referred To | | | | | Procedures | Contact | Contact | + +--------+ + + + + | Authorized | | Orthopedics | Diagnoses | Estefany, | Estefany, | | | | | Other | Rose Pike, | Rose Pike MD | | | | | secondary | [address] | | | | | osteoarthrit | [address] | Ave | | | | | is of left | [place] | [place] | | | | | knee | [address] | [address] | | | | | Procedures | Phone: | Phone: | | | | | REQUEST TO | [phone] | [phone] | | | | | SURGERY | Fax: | Fax: | | | | | SLASHER OPERATOR | [phone] | [phone] | | | | | RI TOTAL | | | | | | | KNEE | | | | | | | ARTHROPLASTY | | | + +--------+ + + + + Consultation (Routine) + +--------+ + + + + | Status | Reason | Specialty | Diagnoses / | Referred By | Referred To | | | | | Procedures | Contact | Contact | + +--------+ + + + + | New Request | | Infectious | Diagnoses | Estefany, | Keshawn, | | | | Disease | Other | Rose Pike, | Sonal Cantrell MD | | | | | secondary | [address] | [address] | | | | | osteoarthrit | [address] | [address] | | | | | is of left | [place], [place] | Rd [facility], | | | | | knee | [address] | [place] | | | | | Procedures | Phone: | [phone] | | | | | CONSULT TO | [phone] | Phone: | | | | | INFECTIOUS | Fax: | [phone] | | | | | DISEASE | [phone] | Fax: | | | | | | | [phone] | + +--------+ + + + + Reason for Visit + + + | Reason | Comments | + + + | New Patient Visit | left knee pain, to discuss TKA | + + + Intake Referral (Routine) + +--------+ + + + + | Status | Reason | Specialty | Diagnoses / | Referred By | Referred To | | | | | Procedures | Contact | Contact | + +--------+ + + + + | Pending | | Orthopedics | Diagnoses | | Estefany, | | Review | | | Unilateral | Anson, | Rose Pike MD | | | | | primary | Annmarie Pinzon, | [address] | | | | | osteoarthrit | [place] [address] | Ave | | | | | is, left | Ellen Hameed | [place], [place] | | | | | knee | [place], | [address] | | | | | | [place] [address] | Phone: | | | | | | Phone: | [phone] | | | | | | [phone] | Fax: | | | | | | Fax: | [phone] | | | | | | [phone] | | + +--------+ + + + + Encounter Details +--------+ + + + + | Date | Type | Department | Care Team | Description | +--------+ + + + + | 09/03/ | Video/TeleH | [facility] | Rose Allison | New Patient Visit | | 2020 | ealth-Sched | & Rehabilitation | MD Shahzad [address] | (left knee pain, to | | | uled | [address] | [address] [place], [place] | discuss TKA) | | | | [place] | [address] | | | | | [address] | [phone] | | | | | [phone] | | | +--------+ + + + [...] documented as of this encounter Progress Notes Rose Allison MD - 09/04/2019 11:40 AM PDT The visit took place via Telemedicine from [facility]. Patient location is the home. Patient was located in the [facility] at the time of the visit. Telepresenter (relative and/or career education teacher) was not used during the visit. Mr. Martinez presents for evaluation of LEFT knee pain. He has had many surgeries (7) on his L knee, multiple arthroscopies. Last arthroscopy was 2016 with a post op infection require d a second surgery. He reports having had Staph infections in both knees at various points, several times. Bactrim is what he has used to treat it. His local orthopaedist does not wa nt to do his L TKA due to infection concern. He does report L knee swelling after activity. He denies fevers, chills or redness. Has hi story of DM but now controlled with weight loss. He is otherwise healthy. He reports andrea l dentition and hygiene. 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 Has had multple operat ions and is now doing well and is using a prosthesis. He had R TKA after amputation. This w as done in [place]. He has done well with this and had no post op infection problems. Left knee pain has been exacerbated by the R leg amputation. Previous treatments, efficacy or reason treatments are contraindicated: ? Medications: Patient has tried taking NSAIDS for pain. ? Weight loss: Patient has maintained a healthy body weight, weight loss not indicated. ? Physical therapy: Patient has had prior physical therapy and symptoms have progressed in spite of good effort. ? Injections: Contra-indicated due to short-term efficacy in severe knee degeneration. Give n infection history in knee, these have been contraindicated. ? Braces, orthotics and/or assistive devices: Have not helped. Symptoms are progressing in spite of crutch and cane use. Limitations of activities of daily living: Patient is severely limited in ability to walk, shop, and climb stairs. Safety concerns: This patient is at high risk of falling due to knee pain. Orders Placed This Encounter X-RAY KNEE 4 VIEWS LEFT 3 VIEWS RIGHT ORTHO COMBO - [facility] Past Medical History: Diagnosis Date Arthropathy Blood transfusion without reported diagnosis Depression Diabetes mellitus (HCC) Essential hypertension Hepatitis Zyprexa associated DM, has resolved with cessation of zyprexa and weight loss. PE: Physical exam conducted with visualization on camera only XR: L knee medial joint space obliteration, osteophytes and sclerosis. Varus alignment. A: Left knee advanced varus osteoarthritis Left knee history of multiple 'staph' infections requiring surgery and antibiotics R knee history of 'staph infections' R below knee amputation after industrial accident Disabled status Well functioning RIGHT TKA Plan: I recommend knee replacement surgery because this patient has exhausted extensive efforts o f conservative management. Given the severity of the patient's condition and debilitating pa in, continued nonsurgical management will not result in significant or long-term pain relief and further deferral of surgical management will result in progressive joint degeneration, deformity and possible increased risk of complications, debility, disability and increased f all risks. Given multiple infections with 'Staph' I recommend he be evaluated by [facility] infectious dise ase team preoperatively for recurrent knee Staph infections. I will refer to ID team an they can decide if they want to see him virtually or in person. I recommend ESR and CRP (interpath clinic [place] in [place], [place]) and a knee aspirat e for synovasure alpha-defensin evaluation. He will need to come to [facility] for this aspirati on. I also recommend consideration of preop skin decolonization techniques such as chlorhexadin e showering and/or diluted bleach baths. We can schedule TKA for AFTER we labs, infectious disease eval, and synovasure aspirate res ults. Total kys-jzpe-vw-face time spent today on this case was 5 minutes, including recent visit review and radiographic retrieval and review. Total qvfs-ws-tizr time spent on this virtual visit was 20 minutes. Total time on this visit is 25 minutes. This case also required complex medical decision making due to medical and surgical complex ity. documented in this encounter Plan of Treatment +--------+ + + + + | Date | Type | Specialty | Care Team | Description | +--------+ + + + + | 10/20/ | Telephone-S | Orthopedics | Adán Justice RN | | | 2019 | cheduled | | [address] | | | | | | [place], | | | | | | [place] [address] | | | | | | [phone] | | +--------+ + + + + | 10/20/ | Video/TeleH | Pre-operative | 4, [facility] Singeing Torch Operator [address] | | | 2019 | ealth-Sched | Medicine | [address] | | | | uled | | [place] [address] | | +--------+ + + + + [...] [place] | | | | | | [address] | | | | | | [phone] | | | | | | | | +--------+ + + + + | 11/02/ | Surgery | Surgery | Rose Allison | LEFT TOTAL KNEE | | 2020 | | | MD Shahzad [address] | ARTHROPLASTY, | | | | | [place] | COMPLEX DUE TO PRIOR | | | | | [address] | INFECTION | | | | | [phone] | | | | | | | | +--------+ + + + + | 11/02/ | Erroneous | Orthopedics | Rose Allison | | | 2019 | Enc-IP | | MD Shahzad [address] | | | | | | [place] | | | | | | [address] | | | | | | [phone] | | | | | | | | +--------+ + + + + | 11/17/ | Video/TeleH | Orthopedics | Yasmani Rodrigez | | | 2020 | ealth-Sched | | RADHA Harper [address] | | | | uled | | [address] | | | | | | [place], [place] | | | | | | [address] | | | | | | [phone] | | | | | | | | +--------+ + + + + | 12/16/ | Office | Orthopedics | Rose Allison | | | 2019 | Visit | | MD Shahzad [address] | | | | | | [place], [place] | | | | | | [address] | | | | | | [phone] | | | | | | | | +--------+ + + + + + +---------+--------+ + + | Name | Type | Priori | Associated Diagnoses | Order Schedule | | | | ty | | | + +---------+--------+ + + | X-RAY KNEE 4 VIEWS | Imaging | Routin | Left knee pain, | Expected: | | LEFT 3 VIEWS RIGHT | | e | unspecified | 08/27/2019, Expires: | | ORTHO COMBO | | | chronicity | 09/26/2020 | + +---------+--------+ + + | SEDIMENTATION RATE | Lab | Routin | Other secondary | Expected: 09/04/2019 | | | | e | osteoarthritis of | (Approximate), | | | | | left knee | Expires: 10/04/2020 | + +---------+--------+ + + | C-REACTIVE PROTEIN | Lab | Routin | Other secondary | Expected: 09/04/2019 | | | | e | osteoarthritis of | (Approximate), | | | | | left knee | Expires: 10/04/2020 | + +---------+--------+ + + documented as of this encounter Visit Diagnoses + + | Diagnosis | + + | Other secondary osteoarthritis of left knee - Primary | + + | Left knee pain, unspecified chronicity | + + documented in this encounter"
--- OUTSIDE RECORDS SUMMARY | ~2019-10-15 | XMS | Encounter Summary ---
Demographics + + + | Address | [address] | | | [place] [address] | + + + | Home Phone | | + + + | Preferred Language | Unknown | + + + | Marital Status | | + + + | Baptist Affiliation | Unknown | + + + | Race | White | + + + | Ethnic Group | Not or | + + + Author + + + | Author | [facility] | + + + | Organization | [facility] | + + + | Address | Unknown | + + + | Phone | Unavailable | + + + Support + + +---------+ + | Name | Relationship | Address | Phone | + + +---------+ + | Rosalina Martinez | ECON | Unknown | | + + +---------+ + Care Team Providers + +------+ + | Care Tobacco Wetter Name | Role | Phone | + +------+ + | Mohan Bullock PASTE UP WORKER | PCP | | + +------+ + Reason for Visit + + + | Reason | Comments | + + + | Referral | Right below knee amputation | + + + Encounter Details +--------+ + + + + | Date | Type | Department | Care Team | Description | +--------+ + + + + | 01/13/ | Abstract | Orthopaedics | Note, Orthopedics | Referral (Right | | 2018 | | [facility] at Center | Clinic | below knee | | | | for Health and | | amputation ) | | | | Healing [address] | | | | | | e [place] for | | | | | | Health and Healing, | | | | | | Building | | | | | | Floor [place], [place] | | | | | | [address] | | | | | | [phone] | | | +--------+ + + + [...] Tab DOI, if applicable? 10/03/2011 Prior Surgery? Yes/[facility]/10/05/2014 Have you seen anyone for this yet? Yes, when: 08/2013; where: [facility] & [facility] fracture clinic MRI Yes, when: 10/30/2017 pt does not recall other dates; where: [facility] VPN-Requested [facility] Diagnostic Reports Media Tab Niesha from [facility] stated no imaging has been done or ever ordered for patient X-Ray Yes, when: pt does not recall; where: [facility] CT No Ultrasound No Other imaging [facility] 2012 Insurance to be billed per patient WC Is this a W/C injury? yes If YES, please also complete: [email or web address] inside referral For Out of State claims, please make patient aware that we do not take Out of State Worker' s Comp unless their gas appliance adjuster can secure [place] rates. Please advise patient to work directly with their gas appliance adjuster and if any questions their gas appliance adjuster can call us back. Are you [...] they d like to sign up for [employer] ? Don t forget to pull in [...] | | | | | [address] [place], | | | | | | [place] [address] | | | | | | [phone] | | +--------+ + + + + | 10/20/ | Video/TeleH | Pre-operative | 4, [facility] [address] | | | 2019 | ealth-Sched | Medicine | [address] | | | | uled | | [place] [address] | | +--------+ + + + + | 11/02/ | Procedure | Surgery | | | | 2019 | Pass | | | | +--------+ + + + + | 11/02/ | Hospital | Adult Acute Care | Rose Allison | | | 2019 | Encounter | | L, MD [address] | | | | | | Ave [place], [place] | | | | | | [address] | | | | | | [phone] | | | | | | | | +--------+ + + + + | 11/02/ | Surgery | Surgery | Rose Allison | LEFT TOTAL KNEE | | 2019 | | | L, MD [address] | ARTHROPLASTY, | | | | | Ave [place], [place] | COMPLEX DUE TO PRIOR | | | | | [address] | INFECTION | | | | | [phone] | | | | | | | | +--------+ + + + + | 11/02/ | Erroneous | Orthopedics | Rose Allison | | | 2020 | Enc-IP | | L, MD [address] | | | | | | Ave [place], [place] | | | | | | [address] | | | | | | [phone] | | | | | | | | +--------+ + + + + | 11/17/ | Video/TeleH | Orthopedics | Yasmani Rodrigez | | | 2019 | ealth-Sched | | RADHA Harper [address] | | | | uled | | [address] | | | | | | [place], [place] | | | | | | [address] | | | | | | [phone] | | | | | | | | +--------+ + + + + | 12/16/ | Office | Orthopedics | Rose Allison | | | 2019 | Visit | | MD Shahzad [address] | | | | | | [place], [place] | | | | | | [address] | | | | | | [phone] | | | | | | | | +--------+ + + + + documented as of this encounter Visit Diagnoses Not on filedocumented in this encounter"
--- OUTSIDE RECORDS SUMMARY | ~2019-10-15 | XMS | Encounter Summary ---
Demographics + + + | Address | [address] | | | [place] [address] | + + + | Home Phone | | + + + | Preferred Language | Unknown | + + + | Marital Status | | + + + | Religion Affiliation | Unknown | + + + [...] Team Providers + +------+ + | Care Director Social Service Name | Role | Phone | + +------+ + | Erica Wise MD | PCP | | + +------+ + Encounter Details +--------+ + + + + | Date | Type | Department | Care Team | Description | +--------+ + + + + | 09/24/ | MyChart | Orthopaedics | | Preoperative | | 2020 | Encounter | [facility] [place] | | Appointment and Labs | | | | for Health and | | | | | | Healing [address] | | | | | | e [place] for | | | | | | Health and Healing, | | | | | | Building | | | | | | Floor [facility] [place] | | | | | | [address] | | | | | | [phone] | | | +--------+ + + + [...] | | | | | [address] [place], | | | | | | [place] [address] | | | | | | [phone] | | +--------+ + + + + | 10/20/ | Video/TeleH | Pre-operative | 4, [facility] [address] | | | 2019 | ealth-Sched | Medicine | [address] | | | | uled | | [place] [address] | | +--------+ + + + + [...] [place] | | | | | | [address] | | | | | | [phone] | | | | | | | | +--------+ + + + + | 11/02/ | Surgery | Surgery | Rose Allison | LEFT TOTAL KNEE | | 2019 | | | L, MD [address] | ARTHROPLASTY, | | | | | Ave [place], [place] | COMPLEX DUE TO PRIOR | | | | | [address] | INFECTION | | | | | [phone] | | | | | | | | +--------+ + + + + | 11/02/ | Erroneous | Orthopedics | Rose Allison | | | 2019 | Enc-IP | | L, MD [address] | | | | | | Ave [place], [place] | | | | | | [address] | | | | | | [phone] | | | | | | | | +--------+ + + + + | 11/17/ | Video/TeleH | Orthopedics | Yasmani Rodrigez | | | 2019 | ealth-Sched | | RADHA Harper [address] | | | | uled | | [address] | | | | | | [place], [place] | | | | | | [address] | | | | | | [phone] | | | | | | | | +--------+ + + + + | 12/16/ | Office | Orthopedics | Rose Allison | | | 2020 | Visit | | MD Shahzad [address] | | | | | | [place] | | | | | | [address] | | | | | | [phone] | | | | | | | | +--------+ + + + + documented as of this encounter Visit Diagnoses Not on filedocumented in this encounter"
--- OUTSIDE RECORDS SUMMARY | ~2019-10-15 | XMS | Encounter Summary ---
Demographics + + + | Address | [address] | | | [place] [address] | + + + | Home Phone | | + + + | Preferred Language | Unknown | + + + | Marital Status | Single | + + + | Holiness Affiliation | Unknown | + + + [...] Team Providers + +------+ + | Care Facilities Officer Name | Role | Phone | + [...] Gamez MD | | | | | [place], [place] | [address] | | | | | [address] | [place] [address] | | | | | [phone] | [phone] | | | | | | | [...] | | | | | approved by theFood and | | | | | | [...]
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
--- OUTSIDE RECORDS SUMMARY | ~2019-10-15 | XMS | Encounter Summary ---
Demographics + + + | Address | [address] | | | [place] [address] | + + + | Home Phone [...] Team Providers + +------+ + | Care Rn Charge Name | Role | Phone | + [...] Provider Unknown | | | | | [place], [place] | [phone] | | | | | [address] | | | | | | [phone] | | | +--------+ + + + [...]
--- OUTSIDE RECORDS SUMMARY | ~2019-10-15 | XMS | Encounter Summary ---
Demographics + + + | Address | [address] | | | [place] [address] | + + + | Home Phone | | + + + | Preferred Language | Unknown | + + + | Marital Status | Single | + + + | Spiritism Affiliation | Unknown | + + + | Race | Unknown | + + + | Ethnic Group | Unknown | + + + Author + + + | Author | [facility] | | | and [place] | + + + | Organization | [facility] | | [...] Providers + +------+ + | Care Social Sciences Department Chair Name | Role | Phone | + +------+ + PCP | Unavailable | + +------+ + Encounter Details +--------+ + + + + | Date | Type | Department | Care Team | Description | +--------+ + + + + | 10/08/ | Hospital | [facility] | | | | 1990 | Encounter | SYSTEM GENERIC OP | | | | | | CONVERSION [address] | | | | | | [address] [place], [place] | | | | | | [address] | | | | | | [phone] | | | +--------+ + + + [...]
--- OUTSIDE RECORDS SUMMARY | ~2019-10-15 | XMS | Encounter Summary ---
Demographics + + + | Address | [address] | | | [place] [address] | + + + | Home Phone | | + + + | Preferred Language | Unknown | + + + | Marital Status | | + + + | Anglican Affiliation | Unknown | + + + [...] Team Providers + +------+ + | Care Developmental Behavioral Physician Name | Role | Phone | [...] | | 2020 | | [facility] | MD Shahzad [address] | | | | | for Health and | [address] [place], [place] | | | | | Healing [address] | [address] | | | | | Ave [place] for | [phone] | | | | | Health and Healing, | | | | | | [facility] | | | | | | [place], [place] | | | | | | [address] | | | | | | [phone] | | | +--------+ + + + [...] | | | | | [address] [place], | | | | | | [place] [address] | | | | | | [phone] | | +--------+ + + + + | 10/20/ | Video/TeleH | Pre-operative | 4, [facility] [address] | | | 2019 | ealth-Sched | Medicine | [address] | | | | uled | | [place] [address] | | +--------+ + + + + | 11/02/ | Procedure | Surgery | | | | 2019 | Pass | | | | +--------+ + + + + | 11/02/ | Hospital | Adult Acute Care | Rose Allison | | | 2020 | Encounter | | L, MD [address] | | | | | | [address] [place], [place] | | | | | | [address] | | | | | | [phone] | | | | | | | | +--------+ + + + + | 11/02/ | Surgery | Surgery | Rose Allison | LEFT TOTAL KNEE | | 2019 | | | L, MD [address] | ARTHROPLASTY, | | | | | Ave [place], [place] | COMPLEX DUE TO PRIOR | | | | | [address] | INFECTION | | | | | [phone] | | | | | | | | +--------+ + + + + | 11/02/ | Erroneous | Orthopedics | Rose Allison | | | 2020 | Enc-IP | | L, MD [address] | | | | | | [address] [place], [place] | | | | | | [address] | | | | | | [phone] | | | | | | | | +--------+ + + + + | 11/17/ | Video/TeleH | Orthopedics | Yasmani Rodrigez | | | 2019 | ealt-Sched | | RADHA [address] | | | | uled | | [address] | | | | | | [place], [place] | | | | | | [address] | | | | | | [phone] | | | | | | | | +--------+ + + + + | 12/16/ | Office | Orthopedics | Rose Allison | | | 2019 | Visit | | MD Shahzad [address] | | | | | | [place], [place] | | | | | | [address] | | | | | | [phone] | | | | | | | | +--------+ + + + + documented as of this encounter Visit Diagnoses Not on filedocumented in this encounter"
--- OUTSIDE RECORDS SUMMARY | ~2019-10-15 | XMS | Encounter Summary ---
Demographics + + + | Address | [address] | | | [place] [address] | + + + | Home Phone | | + + + | Preferred Language | Unknown | + + + | Marital Status | | + + + | Temple Affiliation | Unknown | + + + | Race | White | + + + | Ethnic Group | Not or | + + + Author + + + | Author | [facility] | + + + | Organization | [facility] | + + + | Address | Unknown | + + + | Phone | Unavailable | + + + Support + + +---------+ + | Name | Relationship | Address | Phone | + + +---------+ + | Rosalina Martinez | ECON | Unknown | | + + +---------+ + Care Team Providers + +------+ + | Care Jewel Sorter Name | Role | Phone | + +------+ + | Mohan Bullock EVENT PLANNER | PCP | | + +------+ + [...] | | 2020 | | [facility] at [place] | Provider Per Patient | | | | | for Health and | NO REFERRING | | | | | Healing [address] | PROVIDER PER PT | | | | | [address] [place] for | | | | | | Health and Healing, | | | | | | Building | | | | | | Floor [place], [place] | | | | | | [address] | | | | | | [phone] | | | +--------+ + + + [...] anyone for this yet? Dr. Tsai @ [facility] Orthopedics sx & fracture clinic In referral Do you have a referring provider? yes who: RICKEY CERON [[id number]] Directed referral?: yes - [place] X-Ray Yes, when: 08/04/19; where: [facility] Orthopedics sx & fracture clinic 05/10/19--In impax Faxed [phone] MRI Yes, when: 2015; where: [facility] Orthopedics sx & fracture clinic Faxed [phone] Other Imaging (CT, Ultrasound, etc.) No Is this a W/C injury? no If YES, create referral and complete: .ORTWCNEWPATIENT inside referral Note: We do not accept WC under [place] L&[place] as they do not pay at [place] rates. Other out of state claims will only be accepted if they agree to pay at [place] rates docume nted in writing from adjustor. Can you confirm the insurance we will be billing for this visit? Medicare TECHNICAL SERVICES COORDINATOR MEDICAID/TECHNICAL SERVICES COORDINATOR [place] Note: If OHP, please note which type. E.g. Woods, [employer] suzanne, [employer], etc.) Reminder: Please create referrals for pts with: HMO, OHP, Woods, Self-Pay, W/C, TPL an d ED Post- Ops Can you verify your Primary Care Provider? yes who: Dr. Wise Note: Please update Primary Care Provider in Stick and Play. Are you a current smoker or tobacco [...] they d like to sign up for deviantARThart ? Don t forget to pull in [...] | | | | [address] [place] | | | | | | [place] [address] | | | | | | [phone] | | +--------+ + + + + | 10/20/ | Video/TeleH | Pre-operative | 4, [facility] [facility] [address] | | | 2019 | ealth-Sched | Medicine | [address] | | | | uled | | [place] [address] | | +--------+ + + + + [...] [place] | | | | | | [address] | | | | | | [phone] | | | | | | | | +--------+ + + + + | 11/02/ | Surgery | Surgery | Rose Allison | LEFT TOTAL KNEE | | 2019 | | | L, MD [address] | ARTHROPLASTY, | | | | | Ave [place], [place] | COMPLEX DUE TO PRIOR | | | | | [address] | INFECTION | | | | | [phone] | | | | | | | | +--------+ + + + + | 11/02/ | Erroneous | Orthopedics | Rose Allison | | | 2020 | Enc-IP | | L, MD [address] | | | | | | Ave [place], [place] | | | | | | [address] | | | | | | [phone] | | | | | | | | +--------+ + + + + | 11/17/ | Video/TeleH | Orthopedics | Yasmani Rodrigez | | | 2019 | ealth-Sched | | RADHA Harper [address] | | | | [address] | | [address] | | | | | | [facility] [place] | | | | | | [address] | | | | | | [phone] | | | | | | | | +--------+ + + + + | 12/16/ | Office | Orthopedics | Rose Allison | | | 2019 | Visit | | MD Shahzad [address] | | | | | | [place] | | | | | | [address] | | | | | | [phone] | | | | | | | | +--------+ + + + + documented as of this encounter Visit Diagnoses Not on filedocumented in this encounter"
--- OUTSIDE RECORDS SUMMARY | ~2019-10-15 | XMS | Encounter Summary ---
Demographics + + + | Address | [address] | | | [place] [address] | + + + | Home Phone | | + + + | Preferred Language | Unknown | + + + | Marital Status | Single | + + + | Restorationist Affiliation | Unknown | + + + | Race | Unknown | + + + | Ethnic Group | Unknown | + + + Author + + + | Author | [facility] | | | and [place] | + + + | Organization | [facility] | | [...] Team Providers + +------+ + | Care Mesh Cutter Name | Role | Phone | + [...] Provider Unknown | | | | | [place], [place] | [phone] | | | | | [address] | (Fax) | | | | | [phone] | | | +--------+ + + + [...]
--- OUTSIDE RECORDS SUMMARY | ~2019-10-15 | XMS | Encounter Summary ---
Demographics + + + | Address | [address] | | | [place] [address] | + + + | Home Phone | | + + + | Preferred Language | Unknown | + + + | Marital Status | Single | + + + | Sikh Affiliation | Unknown | + + + | Race | Unknown | + + + | Ethnic Group | Unknown | + + + Author + + + | Author | [facility] | | | and [place] | + + + | Organization | [facility] | | [...] Team Providers + +------+ + | Care Clinical Coder Name | Role | Phone | + +------+ + | Erica Wise MD | PCP | | + +------+ + Encounter Details +--------+ + + + + | Date | Type | Department | Care Team | Description | +--------+ + + + + | 04/15/ | Orders Only | [facility] | Michelle Grant | Chronic hepatitis C | | 2019 | | INFECTIOUS DISEASE | Suzi Gamez MD | without hepatic coma | | | | [address] | [address] | (HCC) (Primary Dx) | | | | [place], [place] | [place] [address] | | | | | [address] | [phone] | | | | | [phone] | | | +--------+ + + + [...] as of this encounter Plan of Treatment + +------+--------+ + + | Name | Type | Priori | Associated Diagnoses | Order Schedule | | | | ty | | | + +------+--------+ + + | CBC with | Lab | Routin | Chronic hepatitis | Expected: | | Differential | | e | C without hepatic | 04/15/2019, Expires: | | | | | coma (HCC) | 04/15/2020 | + +------+--------+ + + | Comprehensive | Lab | Routin | Chronic hepatitis | Expected: | | Metabolic Panel | | e | C without hepatic | 04/15/2019, Expires: | | | | | coma (HCC) | 04/15/2020 | + +------+--------+ + + | Hepatitis C RNA, | Lab | Routin | Chronic hepatitis | Expected: | | quantitative, PCR | | e | C without hepatic | 04/15/2019, Expires: | | | | | coma (HCC) | 04/15/2020 | + +------+--------+ + + | Hepatitis C Viral | Lab | Routin | Chronic hepatitis | 1 Occurrences | | RNA NS3 | | e | C without hepatic | starting 04/15/2019 | | | | | coma (HCC) | until 04/15/2020 | + +------+--------+ + + documented as of this encounter Visit Diagnoses + + | Diagnosis | + + | Chronic hepatitis C without hepatic coma (HCC) - Primary | + + documented in this encounter"
--- OUTSIDE RECORDS SUMMARY | ~2019-10-15 | XMS | Encounter Summary ---
Demographics + + + | Address | [address] | | | [place] [address] | + + + | Home Phone | | + + + | Preferred Language | Unknown | + + + | Marital Status | Single | + + + | Yazidism Affiliation | Unknown | + + + | Race | Unknown | + + + | Ethnic Group | Unknown | + + + Author + + + | Author | [facility] | | | and [place] | + + + | Organization | [facility] | | [...] Team Providers + +------+ + | Care Sportspersons Name | Role | Phone | + +------+ + PCP | Unavailable | + +------+ + Encounter Details +--------+ + + + + | Date | Type | Department | Care Team | Description | +--------+ + + + + | 03/24/ | Hospital | [facility] | Mak Mooney, | Other tear of | | 1996 | Encounter | CONVERSION [address] | MD [address] | cartilage or | | | | [address] | [place] [address] | meniscus of knee, | | | | [place], [place] | [phone] | current | | | | [address] | | | | | | [phone] | | | +--------+ + + + [...]
--- OUTSIDE RECORDS SUMMARY | ~2019-10-15 | XMS | Encounter Summary ---
Demographics + + + | Address | [address] | | | [place] [address] | + + + | Home Phone | | + + + | Preferred Language | Unknown | + + + | Marital Status | | + + + | Bahai Affiliation | Unknown | + + + | Race | White | + + + | Ethnic Group | Not or | + + + Author + + + | Author | [facility] | + + + | Organization | [facility] | + + + | Address | Unknown | + + + | Phone | Unavailable | + + + Support + + +---------+ + | Name | Relationship | Address | Phone | + + +---------+ + | Rosalina Martinez | ECON | Unknown | | + + +---------+ + Care Team Providers + +------+ + | Care Can Closing Machine Tender Name | Role | Phone | + +------+ + | Mohan Bullock NP | PCP | | + +------+ + Encounter Details +--------+ + + + + | Date | Type | Department | Care Team | Description | +--------+ + + + + | 09/15/ | Abstract | Dig[facility]ive [facility] | Daniel Brasher, | | | 2010 | | [place] [address] [address] | [place] | | | | | [address] [place] | | | | | | for Health and | | | | | | Healing, [address] | | | | | | [place], [place] | | | | | | [address] | | | | | | [phone] | | | +--------+ + + + [...] | | | | | [address] [place], | | | | | | [place] [address] | | | | | | [phone] | | +--------+ + + + + | 10/20/ | Video/TeleH | Pre-operative | 4, [facility] [address] | | | 2020 | ealth-Sched | Medicine | [address] | | | | uled | | [place] [address] | | +--------+ + + + + | 11/02/ | Procedure | Surgery | | | | 2019 | Pass | | | | +--------+ + + + + | 11/02/ | Hospital | Adult Acute Care | Rose Allison | | | 2019 | Encounter | | MD Shahzad [address] | | | | | | Ave [place], [place] | | | | | | [address] | | | | | | [phone] | | | | | | | | +--------+ + + + + | 11/02/ | Surgery | Surgery | Rose Allison | LEFT TOTAL KNEE | | 2019 | | | LMD [address] | ARTHROPLASTY, | | | | | Ave [place], [place] | COMPLEX DUE TO PRIOR | | | | | [address] | INFECTION | | | | | [phone] | | | | | | | | +--------+ + + + + | 11/02/ | Erroneous | Orthopedics | Rose Allison | | | 2019 | Enc-IP | | MD Shahzad [address] | | | | | | Ave [place], [place] | | | | | | [address] | | | | | | [phone] | | | | | | | | +--------+ + + + + | 11/17/ | Video/TeleH | Orthopedics | Yasmani Rodrigez | | | 2019 | [facility] | | RADHA Harper [address] | | | | uled | | [address] [facility] [address] | | | | | | [facility] [place] | | | | | | [address] | | | | | | [phone] | | | | | | | | +--------+ + + + + | 12/16/ | Office | Orthopedics | Rose Allison | | | 2020 | Visit | | MD Sahhzad [address] | | | | | | [place] | | | | | | [address] | | | | | | [phone] | | | | | | | | +--------+ + + + + documented as of this encounter Visit Diagnoses Not on filedocumented in this encounter"
--- OUTSIDE RECORDS SUMMARY | ~2019-10-15 | XMS | Encounter Summary ---
Demographics + + + | Address | [address] | | | [place] [address] | + + + | Home Phone | | + + + | Preferred Language | Unknown | + + + | Marital Status | | + + + | Judaism Affiliation | Unknown | + + + | Race | White | + + + | Ethnic Group | Not or | + + + Author + + + | Author | [facility] | + + + | Organization | [facility] | + + + | Address | Unknown | + + + | Phone | Unavailable | + + + Support + + +---------+ + | Name | Relationship | Address | Phone | + + +---------+ + | Rosalina Martinez | ECON | Unknown | | + + +---------+ + Care Team Providers + +------+ + | Care Hospital Television Rental Clerk Name | Role | Phone | + +------+ + | Mohan Bullock NP | PCP | | + +------+ + Encounter Details +--------+ + + + + | Date | Type | Department | Care Team | Description | +--------+ + + + + | 01/28/ | Abstract | Orthopaedics | Note, Orthopedics | | | 2018 | | [facility] at [place] | Clinic | | | | | for Health and | | | | | | Healing [address] | | | | | | [facility] for | | | | | | Health and Healing, | | | | | | Building | | | | | | Floor [place], [place] | | | | | | [address] | | | | | | [phone] | | | +--------+ + + + [...] | | | | | [address] [facility] | | | | | | [place] [address] | | | | | | [phone] | | +--------+ + + + + | 10/20/ | Video/TeleH | Pre-operative | 4, [facility] Payable Coordinator [address] | | | 2020 | ealth-Sched | Medicine | [address] | | | | uled | | [place] [address] | | +--------+ + + + + | 11/02/ | Procedure | Surgery | | | | 2019 | Pass | | | | +--------+ + + + + | 11/02/ | Hospital | Adult Acute Care | Rose Allison | | | 2019 | Encounter | | MD Shahzad [address] | | | | | | [place], [place] | | | | | | [address] | | | | | | [phone] | | | | | | | | +--------+ + + + + | 11/02/ | Surgery | Surgery | Rose Allison | LEFT TOTAL KNEE | | 2019 | | | L, MD [address] | ARTHROPLASTY, | | | | | Ave [place], [place] | COMPLEX DUE TO PRIOR | | | | | [address] | INFECTION | | | | | [phone] | | | | | | | | +--------+ + + + + | 11/02/ | Erroneous | Orthopedics | Rose Alliosn | | | 2019 | Enc-IP | | L, MD [address] | | | | | | Ave [place], [place] | | | | | | [address] | | | | | | [phone] | | | | | | | | +--------+ + + + + | 11/17/ | Video/TeleH | Orthopedics | Yasmani Rodrigez | | | 2019 | ealth-Sched | | RADHA Harper [address] | | | | uled | | [address] [facility] | | | | | | [place], [place] | | | | | | [address] | | | | | | [phone] | | | | | | | | +--------+ + + + + | 12/16/ | Office | Orthopedics | Rose Allison | | | 2020 | Visit | | MD Shahzad [address] | | | | | | [place], [place] | | | | | | [address] | | | | | | [phone] | | | | | | | | +--------+ + + + + documented as of this encounter Visit Diagnoses Not on filedocumented in this encounter"
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
--- OUTSIDE RECORDS SUMMARY | ~2019-10-15 | XMS | Encounter Summary ---
Demographics + + + | Address | [address] | | | [place] [address] | + + + | Home Phone | | + + + | Preferred Language | Unknown | + + + | Marital Status | | + + + | Jew Affiliation | Unknown | + + + | Race | White | + + + | Ethnic Group | Not or | + + + Author + + + | Author | [facility] | + + + | Organization | [facility] | + + + | Address | Unknown | + + + | Phone | Unavailable | + + + Support + + +---------+ + | Name | Relationship | Address | Phone | + + +---------+ + | Rosalina Martinez | ECON | Unknown | | + + +---------+ + Care Team Providers + +------+ + | Care Obstetrics Gyn Name | Role | Phone | + [...] | 2020 | Encounter | [facility] at [place] | MD Shahzad [address] | Appointment | | | | for Health and | [facility] [place] | | | | | Healing [address] | [address] | | | | | Ave [place] for | [phone] | | | | | Health and Healing, | | | | | | | | | | | | Floor [place], [place] | | | | | | [address] | | | | | | [phone] | | | +--------+ + + + [...] | | | | | [address] [place], | | | | | | [place] [address] | | | | | | [phone] | | +--------+ + + + + | 10/20/ | Video/TeleH | Pre-operative | 4, [facility] [address] | | | 2019 | ealth-Sched | Medicine | [address] | | | | uled | | [place] [address] | | +--------+ + + + + [...] [place] | | | | | | [address] | | | | | | [phone] | | | | | | | | +--------+ + + + + | 11/02/ | Surgery | Surgery | Rose Allison | LEFT TOTAL KNEE | | 2019 | | | MD Shahzad [address] | ARTHROPLASTY, | | | | | [place] | COMPLEX DUE TO PRIOR | | | | | [address] | INFECTION | | | | | [phone] | | | | | | | | +--------+ + + + + | 11/02/ | Erroneous | Orthopedics | Rose Allison | | | 2019 | Enc-IP | | MD Shahzad [address] | | | | | | [place] | | | | | | [address] | | | | | | [phone] | | | | | | | | +--------+ + + + + | 11/17/ | Video/TeleH | Orthopedics | Yasmani Rodrigez | | | 2020 | ealth-Sched | | RADHA Harper [address] | | | | uled | | [address] | | | | | | [place] | | | | | | [address] | | | | | | [phone] | | | | | | | | +--------+ + + + + | 12/16/ | Office | Orthopedics | Rose Allison | | | 2019 | Visit | | MD Shahzad [address] | | | | | | [place] | | | | | | [address] | | | | | | [phone] | | | | | | | | +--------+ + + + + documented as of this encounter Visit Diagnoses Not on filedocumented in this encounter"
--- OUTSIDE RECORDS SUMMARY | ~2019-10-15 | XMS | Encounter Summary ---
Demographics + + + | Address | [address] | | | [place] [address] | + + + | Home Phone | | + + + | Preferred Language | Unknown | + + + | Marital Status | Single | + + + | Hinduism Affiliation | Unknown | + + + | Race | Unknown | + + + | Ethnic Group | Unknown | + + + Author + + + | Author | [facility] | | | and [place] | + + + | Organization | [facility] | | | [...] Team Providers + +------+ + | Care Endless Belt Finisher Name | Role | Phone | + +------+ + PCP | Unavailable | + +------+ + Encounter Details +--------+ + + + + | Date | Type | Department | Care Team | Description | +--------+ + + + + | 05/22/ | Hospital | [facility] | Conversion | Pain | | 2014 | Encounter | [address] | Transaction, | | | | | [address] | Provider Unknown | | | | | [place], [place] | [phone] | | | | | [address] | | | | | | [phone] | | | +--------+ + + + [...]
--- OUTSIDE RECORDS SUMMARY | ~2019-10-15 | XMS | Encounter Summary ---
Demographics + + + | Address | [address] | | | [place] [address] | + + + | Home Phone | | + + + | Preferred Language | Unknown | + + + | Marital Status | | + + + | Yarsanism Affiliation [...] Phone | + + +---------+ + | Rosalnia Martinez | ECON | Unknown | | + + +---------+ + Care Team Providers + +------+ + | Care Editing Computer Publisher Name | Role | Phone | + +------+ + | Erica Wise MD | PCP | | + +------+ + Encounter Details +--------+ + + + + | Date | Type | Department | Care Team | Description | +--------+ + + + + | 09/30/ | Telephone | Infectious | Sonal Liao, | | | 2019 | | Diseases at [facility] | [address] | | | | | [address] | [address] | | | | | Loop Physician's | [place], [place] | | | | | [place], [facility] floor | [address] | | | | | [place], [place] | [phone] | | | | | [address] | | | | | | [phone] | | | +--------+ + + + [...] | | | | | Latanya [address] [place], | | | | | | [place] [address] | | | | | | [phone] | | +--------+ + + + + | 10/20/ | Video/TeleH | Pre-operative | 4, [facility] [address] | | | 2019 | ealth-Sched | Medicine | [address] | | | | uled | | [place] [address] | | +--------+ + + + + | 11/02/ | Procedure | Surgery | | | | 2019 | Pass | | | | +--------+ + + + + | 11/02/ | Hospital | Adult Acute Care | Rose Allison | | | 2019 | Encounter | | MD Shahzad [address] | | | | | | [place], [place] | | | | | | [address] | | | | | | [phone] | | | | | | | | +--------+ + + + + | 11/02/ | Surgery | Surgery | Rose Allison | LEFT TOTAL KNEE | | 2019 | | | MD Shahzad [address] | ARTHROPLASTY, | | | | | Ave [place], [place] | COMPLEX DUE TO PRIOR | | | | | [address] | INFECTION | | | | | [phone] | | | | | | | | +--------+ + + + + | 11/02/ | Erroneous | Orthopedics | Rose Allison | | | 2019 | Enc-IP | | MD Shahzad [address] | | | | | | [place], [place] | | | | | | [address] | | | | | | [phone] | | | | | | | | +--------+ + + + + | 11/17/ | Video/TeleH | Orthopedics | Yasmani Rodrigez | | | 2019 | ealth-Sched | | RADHA Harper [address] | | | | uled | | [address] | | | | | | [place], [place] | | | | | | [address] | | | | | | [phone] | | | | | | | | +--------+ + + + + | 12/16/ | Office | Orthopedics | Rose Allison | | | 2020 | Visit | | MD Shahzad [address] | | | | | | [place], [place] | | | | | | [address] | | | | | | [phone] | | | | | | | | +--------+ + + + + documented as of this encounter Visit Diagnoses Not on filedocumented in this encounter"
--- OUTSIDE RECORDS SUMMARY | ~2019-10-15 | XMS | Encounter Summary ---
Demographics + + + | Address | [address] | | | [place] [address] | + + + | Home Phone [...] Team Providers + +------+ + | Care Instructional Supervisor Name | Role | Phone | + +------+ + PCP | Unavailable | + +------+ + Encounter Details +--------+ + + + + | Date | Type | Department | Care Team | Description | +--------+ + + + + | 05/22/ | Hospital | [facility] | Conversion | Pain | | 2014 | Encounter | CONVERSION [address] | Transaction, | | | | | [address] | Provider Unknown | | | | | [place], [place] | [phone] | | | | | [address] | | | | | | [phone] | | | +--------+ + + + [...]
--- OUTSIDE RECORDS SUMMARY | ~2019-10-15 | XMS | Encounter Summary ---
Demographics + + + | Address | [address] | | | [place] [address] | + + + | Home Phone | | + + + | Preferred Language | Unknown | + + + | Marital Status | | + + + | Latter Day [...] Team Providers + +------+ + | Care Cotton Cleaner Name | Role | Phone | + +------+ + | Mohan Bullock FACTORER | PCP | | + +------+ + [...] | | | is of left | [place], [place] | [place] | | | | | knee | [address] | [address] | | | | | Procedures | Phone: | Phone: | | | | | REQUEST TO | [phone] | [phone] | | | | | SURGERY | Fax: | Fax: | | | | | HOMOGENIZER OPERATOR | [phone] | [phone] | | | | | LA TOTAL | | | | | | [...] | osteoarthrit | [address] | [address] | | | | | is of left | [place], [place] | [address] [facility], | | | | | knee | [address] | [place] | | | | | Procedures | Phone: | [address] | | | | | CONSULT TO | [phone] | Phone: | | | | | INFECTIOUS | Fax: | [phone] | | | | | DISEASE | [phone] | Fax: | | | | | | | [phone] | + +--------+ + + + + [...] | is, left | Ellen Hameed | [place], [place] | | | | | knee | [place], | [address] | | | | | | [place] [address] | Phone: | | | | | | Phone: | [phone] | | | | | | [phone] | Fax: | | | | | | Fax: | [phone] | | | | | | [phone] | | + +--------+ + + + [...] pain, to | | | uled | [address] | [address] [place], [place] | discuss TKA) | | | | [place] | [address] | | | | | [address] | [phone] | | | | | [phone] | | | +--------+ + + + [...] The visit took place via Telemedicine from [facility]. Patient location is the home. Patient was located in the [facility] at the time of the visit. Telepresenter (relative and/or career and guidance counselor) was not used during the visit. Mr. [...] after amputation. This w as done in [place]. He has done well with this and [...] 'Staph' I recommend he be evaluated by [facility] infectious dise ase team preoperatively for recurrent knee Staph infections. I will refer to ID team an they can decide if they want to see him virtually or in person. I recommend ESR and CRP ([facility] [place] in [place], [place]) and a knee aspirat e for synovasure alpha-defensin evaluation. He will need to come to [facility] for this aspirati on. I also recommend consideration of preop skin decolonization techniques such as chlorhexadin e showering and/or diluted bleach baths. We can schedule TKA for AFTER we labs, infectious disease eval, and synovasure aspirate res ults. Total gos-llge-pv-face time spent today on this case was 5 minutes, including recent visit review and radiographic retrieval and review. Total cnhm-tw-djep time spent on this virtual visit was [...] | | | | | | [place] [address] | | | | | | [phone] | | +--------+ + + + + | 10/20/ | Video/TeleH | Pre-operative | 4, [facility] Delivery Person [address] | | | 2019 | ealth-Sched | Medicine | [address] | | | | uled | | [place] [address] | | +--------+ + + + + [...] [place] | | | | | | [address] | | | | | | [phone] | | | | | | | | +--------+ + + + + | 11/02/ | Surgery | Surgery | Rose Allison | LEFT TOTAL KNEE | | 2020 | | | MD Shahzad [address] | ARTHROPLASTY, | | | | | [place] | COMPLEX DUE TO PRIOR | | | | | [address] | INFECTION | | | | | [phone] | | | | | | | | +--------+ + + + + | 11/02/ | Erroneous | Orthopedics | Rose Allison | | | 2019 | Enc-IP | | MD Shahzad [address] | | | | | | [place] | | | | | | [address] | | | | | | [phone] | | | | | | | | +--------+ + + + + | 11/17/ | Video/TeleH | Orthopedics | Yasmani Rodrigez | | | 2020 | ealth-Sched | | RADHA Harper [address] | | | | uled | | [address] | | | | | | [place], [place] | | | | | | [address] | | | | | | [phone] | | | | | | | | +--------+ + + + + | 12/16/ | Office | Orthopedics | Rose Allison | | | 2019 | Visit | | MD Shahzad [address] | | | | | | [place], [place] | | | | | | [address] | | | | | | [phone] | | | | | | | [...]
--- OUTSIDE RECORDS SUMMARY | ~2019-10-15 | XMS | Clinical Summary ---
Demographics + + + | Address | [address] | | | [place] [address] | + + + | Home Phone | | + + + | Preferred Language | Unknown | + + + | Marital Status | Single | + + + | Sikhism Affiliation [...] Providers + +------+ + | Care Public Affairs Officer Name | Role | Phone | [...] | the muscle as | | | 10/14 | | e | | mg/0.3 mL injection | needed. | | | 18 | | | + + + +---------+------+------+-------+ | oxyCODONE 10 MG | Take by mouth as | | 0 | 07/ | | Activ | | TABS | needed. | | | 09/13 | | e | | | | | | 19 | | | + + + +---------+------+------+-------+ Active Problems Not on file Encounters +--------+ + + + + | Date | Type | Specialty | Care Team | Description | +--------+ + + + + | 08/16/ | Telephone | Infectious Diseases | Ursales, Michelle | Coordination Of Care | | 2020 | | | Suzi Gamez MD | (NO SHOW, RECALL | | | | | | LETTER PLACED) | +--------+ + + + + | 08/11/ | Documentati | Infectious Diseases | Michelle Grant | Results (07/31/2019 | | 2020 | on | | Suzi Gamez MD | [facility], | | | | | | HCV RNA, CBC, HCV | | | | | | NS5A [place]) | +--------+ + + + + from [...] Health Maintenance | Due Date | Last | Comments | | | | Done | | + + + + + | Vaccine: | | | | | Dtap/Tdap/Td (1 - | 1 | | | | Tdap) | | | | + + + + + | Vaccine: Influenza | | | | | (#1) | 0 | | | + + + + + | Hepatitis C | Completed | 07/31/19 | | | Screening | | 20, | | | | | 04/15/19 | | | | | 20, | | | | | 09/11/19 | | | | | 19, | | | | | Addition | | | | | al | | | | | history | | | | | exists | | + + + + + Procedures + +--------+ + + + | Procedure Name | Priori | Date/Time | Associated Diagnosis | Comments | | | ty | | | | + +--------+ + + + | HCV GT3 NS5A DRUG | Routin | 07/31/2019 | | Results for this | | RESIST ASSAY | e | 11:25 AM | | procedure are in the | | | | PDT | | results section. | + +--------+ + + + | CBC WITH | Routin | 07/31/2019 | | Results for this | | DIFFERENTIAL | e | 11:25 AM | | procedure are in the | | | | PDT | | results section. | + +--------+ + + + | HEPATITIS C RNA, | Routin | 07/31/2019 | | Results for this | | QUANT, NAAT | e | 11:25 AM | | procedure are in the | | | | PDT | | results section. | + +--------+ + + + | COMPREHENSIVE | Routin | 07/31/2019 | | Results for this | | METABOLIC PANEL | e | 11:25 AM | | procedure are in the | | | | PDT | | results section. | + +--------+ + + + | LABS - EXTERNAL SCAN | | 07/31/2019 | | Results for this | | | | 12:00 AM | | procedure are in the | | | | PDT | | results section. | + +--------+ + + + from Last 3 Months Results HCV GT3 NS5A DRUG RESIST ASSAY (07/31/2019 11:25 AM PDT) + + | Specimen | + + | Blood | + + + + + | Impressions | Performed At | + + + | NS5A GENOTYPE Result: 1a NS5A RESISTANCE Result: See Note | REFERENCE LAB | | INTERPRETIVE INFORMATION: HCV NS5A Drug Resistance by Sequencing | [facility] | | This assay detects resistance-associated variants in NS5A codons | | | 20-101 for HCV genotypes 1a and 1b. Variants in viral sub-populations | | | below 20 percent of total may not be detected. For further | | | information, please refer to drug package inserts for the applicable | | | direct acting antiviral drug and current HCV treatment guidelines | | | (e.g. AASLD/IDSA guidelines or EASL HCV treatment recommendations.) | | | Test developed and characteristics determined by [facility]. | | | See Compliance Statement : [email or web address].[email or web address]/CS Notes below apply to: NS5A | | | RESISTANCE The following resistance-associated variants were | | | identified: None Ledipasvir Resistance: Not predicted Elbasvir | | | Resistance: Not predicted Ombitasvir Resistance: Not predicted | | | Daclatasvir Resistance: Not predicted Velpatasvir Resistance: Not | | | predicted Pibrentasvir Resistance: Not predicted A result of | | | predicted resistance indicates that one or more resistance-associated | | | variant (PIOTR) was detected. These RAWs have been known to confer | | | varying levels of resistance to treatment regimens containing the NS5A | | | inhibitors ledipasvir or elbasvir. Resistance and interpretation for | | | these variants is reported on current EASL HCV treatment guidelines. | | | A result of possible resistance indicates that one or more | | | resistance-associated variant (PIOTR) was detected. Current guidelines | | | and in vitro and/or clinical studies have identified these variants as | | | having a possible association with resistance but may require | | | additional studies to confirm. Please refer to the individual Direct | | | Acting Antiviral (DAA) package inserts for additional treatment | | | implications and guidance. A result of Not Predicted resistance | | | indicates that no RAVs were detected and/or variants detected have | | | uncertain or no impact on response to DAA-treatment. Additionally, | | | variants in viral sub-populations below 20 percent of total may not be | | | detected. | | + + + + + + + + | Performing | Address | City/State/Zipcode | Phone Number | | Organization | | | | + + + + + | REFERENCE LAB | [address] | [place] | [phone] | | [facility] | | [address] | | + + + + + Hepatitis C RNA, Quant, NAAT (07/31/2019 11:25 AM PDT) + + + + + + | Component | Value | Ref Range | Performed | Pathologist | | | | | At | Signature | + + + + + + | HCV | 1,004,148 | not detected | REFERENCE | | | Quantitativ | | IU/mL | LAB | | | e | | | [facility] | | + + + + + + | HCV | 6 | not detected | REFERENCE | | | Quantitativ | | Log IU/mL | LAB | | | e Log | | | [facility] | | + + + + + + + + | Specimen | + + | Blood | + + + + + + + | Performing | Address | City/State/Zipcode | Phone Number | | Organization | | | | + + + + + | REFERENCE LAB | [address] | [place] | [phone] | | [facility] | | [address] | | + + + + + CBC with Differential (07/31/2019 11:25 AM PDT) + + + + + + | Component | Value | Ref Range | Performed | Pathologist | | | | | At | Signature | + + + + + + | WBC | 3.7 (A) | 4.5 - 11.0 K/uL | REFERENCE | | | | | | LAB | | | | | | [facility] | | + + + + + + | Red Blood | 4.65 | 4.3 - 5.7 M/uL | REFERENCE | | | Cells | | | LAB | | | | | | [facility] | | + + + + + + | HGB, | 14.9 | 13.5 - 18.0 | REFERENCE | | | External | | g/dL | LAB | | | | | | [facility] | | + + + + + + | HCT, | 44.3 | 41 - 50 % | REFERENCE | | | External | | | LAB | | | | | | [facility] | | + + + + + + | MCV | 95.3 | 81 - 99 fl | REFERENCE | | | | | | LAB | | | | | | [facility] | | + + + + + + | RDW | 13.6 | 10.5 - 15.0 % | REFERENCE | | | | | | LAB | | | | | | [facility] | | + + + + + + | MCH | 32 | 27 - 33 pg | REFERENCE | | | | | | LAB | | | | | | [facility] | | + + + + + + | MCHC | 34 | 30 - 36 g/dL | REFERENCE | | | | | | LAB | | | | | | [facility] | | + + + + + + | PLT, | 165 | 140 - 440 K/uL | REFERENCE | | | External | | | LAB | | | | | | [facility] | | + + + + + + | Neutrophils | 70.1 | 39 - 80 % | REFERENCE | | | %, | | | LAB | | | External | | | [facility] | | + + + + + + | Lymphocytes | 19.1 (A) | 24 - 44 % | REFERENCE | | | %, | | | LAB | | | External | | | [facility] | | + + + + + + | Monocytes | 9.4 | 0 - 12 % | REFERENCE | | | %, External | | | LAB | | | | | | [facility] | | + + + + + + | Eosinophils | 0.6 | 0 - 6 % | REFERENCE | | | %, | | | LAB | | | External | | | [facility] | | + + + + + + | Basophils | 0.8 | 0 - 2 % | REFERENCE | | | %, External | | | LAB | | | | | | [facility] | | + + + + + + + + | Specimen | + + | Blood | + + + + + + + | Performing | Address | City/State/Zipcode | Phone Number | | Organization | | | | + + + + + | REFERENCE LAB | [address] | [place] | [phone] | | [facility] | | [address] | | + + + + + Comprehensive Metabolic Panel (07/31/2019 11:25 AM PDT) + +--------+ + + + | Component | Value | Ref Range | Performed | Pathologist | | | | | At | Signature | + +--------+ + + + | Na | 133 | 132 - 143 meq/L | REFERENCE | | | | | | LAB | | | | | | [facility] | | + +--------+ + + + | K | 4.5 | 3.6 - 5.1 meq/L | REFERENCE | | | | | | LAB | | | | | | [facility] | | + +--------+ + + + | Cl | 104 | 95 - 112 meq/L | REFERENCE | | | | | | LAB | | | | | | [facility] | | + +--------+ + + + | CO2 | 25 | 19 - 31 meq/L | REFERENCE | | | | | | LAB | | | | | | [facility] | | + +--------+ + + + | Anion Gap, | 8.5 | 7.0 - 21.0 | REFERENCE | | | External | | | LAB | | | | | | [facility] | | + +--------+ + + + | Glucose | 96 | 70 - 100 mg/dL | REFERENCE | | | | | | LAB | | | | | | [facility] | | + +--------+ + + + | BUN, | 10 | 6 - 23 mg/dL | REFERENCE | | | External | | | LAB | | | | | | [facility] | | + +--------+ + + + | Creatinine | 0.95 | 0.60 - 1.35 | REFERENCE | | | | | mg/dL | LAB | | | | | | [facility] | | + +--------+ + + + | GFR | 85 | mL/min | REFERENCE | | | ESTIMATE | | | LAB | | | (REF) | | | [facility] | | + +--------+ + + + | BUN/Creatin | 10.5 | 6.0 - 28.6 | REFERENCE | | | ine Ratio | | | LAB | | | | | | [facility] | | + +--------+ + + + | Calcium | 8.8 | 8.5 - 10.3 | REFERENCE | | | | | mg/dL | LAB | | | | | | [facility] | | + +--------+ + + + | AST | 56 (A) | 13 - 39 U/L | REFERENCE | | | | | | LAB | | | | | | [facility] | | + +--------+ + + + | ALT | 70 (A) | 7 - 52 U/L | REFERENCE | | | | | | LAB | | | | | | [facility] | | + +--------+ + + + | ALP, | 78 | 31 - 120 U/L | REFERENCE | | | External | | | LAB | | | | | | [facility] | | + +--------+ + + + | Bilirubin | 0.6 | 0.0 - 1.2 mg/dL | REFERENCE | | | Total | | | LAB | | | | | | [facility] | | + +--------+ + + + | Total | 6.9 | 6.0 - 8.3 g/dL | REFERENCE | | | Protein | | | LAB | | | | | | [facility] | | + +--------+ + + + | Albumin, | 3.9 | 3.5 - 5.0 g/dL | REFERENCE | | | External | | | LAB | | | | | | [facility] | | + +--------+ + + + | Globulin | 3.0 | 1.8 - 3.5 g/dL | REFERENCE | | | | | | LAB | | | | | | [facility] | | + +--------+ + + + | A/G Ratio | 1.3 | 1.1 - 2.4 | REFERENCE | | | | | | LAB | | | | | | [facility] | | + +--------+ + + + + + | Specimen | + + | Blood | + + + + + + + | Performing | Address | City/State/Zipcode | Phone Number | | Organization | | | | + + + + + | REFERENCE LAB | [address] | [place] | [phone] | | [facility] | | [address] | | + + + + + LABS - EXTERNAL SCAN (07/31/2019 12:00 AM PDT) + + + | Narrative | Performed At | + + + | Ordered by an | | | unspecified provider. | | + + + from Last 3 Months Advance Directives + + + + + | Type | Date Recorded | Patient | Explanation | | | | Entry Level Account Executive | | + + + + + | Power of | | | | | Still Cleaner | | | | + + + + + | Advance | | | | | Directive | | | | + + + + +"
--- OUTSIDE RECORDS SUMMARY | ~2019-10-15 | XMS | Encounter Summary ---
Demographics + + + | Address | [address] | | | [place] [address] | + + + | Home Phone | | + + + | Preferred Language | Unknown | + + + | Marital Status | | + + + | Confucianist Affiliation | Unknown | + + + | Race | White | + + + | Ethnic Group | Not or | + + + Author + + + | Author | [facility] | + + + | Organization | [facility] | + + + | Address | Unknown | + + + | Phone | Unavailable | + + + Support + + +---------+ + | Name | Relationship | Address | Phone | + + +---------+ + | Rosalina Martinez | ECON | Unknown | | + + +---------+ + Care Team Providers + +------+ + | Care Senior Facilities Manager Name | Role | Phone | + +------+ + | Mohan Bullock SOLUTIONS DEVELOPMENT ANALYST | PCP | | + +------+ [...] | | | | | | [facility] | [facility], | | | | | | Building | | | | | | Floor [place], [place] | | | | | | [address] | | | | | | [phone] | | | +--------+ + + + [...] Tab DOI, if applicable? 10/03/2011 Prior Surgery? Yes/[facility]/10/05/2014 Have you seen anyone for this yet? Yes, when: 08/2013; where: [facility] & [facility] fracture clinic MRI Yes, when: 10/30/2017 pt does not recall other dates; where: [facility] VPN-Requested [facility] Calling [facility] Diagnostic Reports Media Tab Niesha from [facility] stated no imaging has been done or ever ordered for patient X-Ray Yes, when: pt does not recall; where: [facility] Calling [facility] CT No Ultrasound No Other imaging [facility] 2012 Insurance to be billed per patient WC Is this a W/C injury? yes If YES, please also complete: .[email or web address] inside referral For Out of State claims, please make patient aware that we do not take Out of State Worker' s Comp unless their elevator examiner and adjuster can secure [place] rates. Please advise patient to work directly with their elevator examiner and adjuster and if any questions their elevator examiner and adjuster can call us back. Are you [...] they d like to sign up for [employer] ? Don t forget to pull in [...] | | | | | [address] [place], | | | | | | [place] [address] | | | | | | [phone] | | +--------+ + + + + | 10/20/ | Video/TeleH | Pre-operative | 4, [facility] [address] | | | 2019 | ealth-Sched | Medicine | [address] | | | | uled | | [place] [address] | | +--------+ + + + + [...] [place] | | | | | | [address] | | | | | | [phone] | | | | | | | | +--------+ + + + + | 11/02/ | Surgery | Surgery | Rose Allison | LEFT TOTAL KNEE | | 2019 | | | L, MD [address] | ARTHROPLASTY, | | | | | Ave [place], [place] | COMPLEX DUE TO PRIOR | | | | | [address] | INFECTION | | | | | [phone] | | | | | | | | +--------+ + + + + | 11/02/ | Erroneous | Orthopedics | Rose Allison | | | 2020 | Enc-IP | | L, MD [address] | | | | | | Ave [place], [place] | | | | | | [address] | | | | | | [phone] | | | | | | | | +--------+ + + + + | 11/17/ | Video/TeleH | Orthopedics | Yasmani Rodrigez | | | 2019 | ealth-Sched | | RADHA Harper [address] | | | | uled | | [address] | | | | | | [place], [place] | | | | | | [address] | | | | | | [phone] | | | | | | | | +--------+ + + + + | 12/16/ | Office | Orthopedics | Rose Allison | | | 2019 | Visit | | MD Shahzad [address] | | | | | | [place], [place] | | | | | | [address] | | | | | | [phone] | | | | | | | | +--------+ + + + + documented as of this encounter Visit Diagnoses Not on filedocumented in this encounter"
--- OUTSIDE RECORDS SUMMARY | ~2019-10-15 | XMS | Encounter Summary ---
Demographics + + + | Address | [address] | | | [place] [address] | + + + | Home Phone [...] Providers + +------+ + | Care Senior Process Control Tech Name | Role | Phone | + +------+ + | Erica Wise MD | PCP | | + +------+ + Reason for Visit +---------+ + | Reason | Comments | +---------+ + | Results | 07/31/2019 [facility]- CMP, HCV RNA, CBC, HCV NS5A [place] | +---------+ + Encounter Details +--------+ + + + + | Date | Type | Department | Care Team | Description | +--------+ + + + + | 08/11/ | Documentati | [facility] | Michelle Grant | Results (07/31/2019 | | 2020 | on | INFECTIOUS DISEASE | Suzi Gamez MD | [facility]- CMP, | | | | [address] | [address] | HCV RNA, CBC, HCV | | | | [place] | [place] [address] | NS5A [place]) | | | | [address] | [phone] | | | | | [phone] | | | +--------+ + + + [...] documented as of this encounter Progress Notes Janell Hylton, Commercial Painter - 08/12/2019 9:15 AM [facility]: CMP, HCV RNA, CBC, HCV N S5A DOS: 07/31/2019 Received from: [facility] Abstracted into Epic and sent to scan: YES Abstracted by: JANELL HYLTON CMA documented in this encounter Plan of Treatment [...] + + documented in this encounter Results HCV GT3 NS5A DRUG RESIST ASSAY [...] | Test developed and characteristics determined by [facility]. | | | See Compliance Statement : Olery.Avancert/Privacy Analytics Notes below apply to: NS5A | | [...] + + | REFERENCE LAB | [address] [address] | [place] | [phone] | | [facility] | | [address] | | + + + + + [...] + + | REFERENCE LAB | [address] [facility] | [place] | [phone] | | [facility] | | [address] | | + + + + + [...] REFERENCE LAB | [address] | [place] | [phone] | | [facility] | | [address] | | + + + + + [...] + + | REFERENCE LAB | [address] [facility] | [place] | [phone] | | [facility] | | [address] | | + + + + + documented in this encounter Visit Diagnoses Not on filedocumented in this encounter"
--- OUTSIDE RECORDS SUMMARY | ~2019-10-15 | XMS | Encounter Summary ---
Demographics + + + | Address | [address] | | | [place] [address] | + + + | Home Phone | | + + + | Preferred Language | Unknown | + + + | Marital Status | | + + + | Scientologist Affiliation | Unknown | + + + [...] Team Providers + +------+ + | Care Billposting Supervisor Name | Role | Phone | + +------+ + | Erica Wise MD | PCP | | + +------+ + Encounter Details +--------+ + + + + | Date | Type | Department | Care Team | Description | +--------+ + + + + | 09/24/ | MyChart | Orthopaedics | | Preoperative | | 2020 | Encounter | [facility] [place] | | Appointment and Labs | | | | for Health and | | | | | | Healing [address] | | | | | | e [place] for | | | | | | Health and Healing, | | | | | | Building | | | | | | Floor [facility] [place] | | | | | | [address] | | | | | | [phone] | | | +--------+ + + + [...] | | | | | [address] [place], | | | | | | [place] [address] | | | | | | [phone] | | +--------+ + + + + | 10/20/ | Video/TeleH | Pre-operative | 4, [facility] [address] | | | 2019 | ealth-Sched | Medicine | [address] | | | | uled | | [place] [address] | | +--------+ + + + + [...] [place] | | | | | | [address] | | | | | | [phone] | | | | | | | | +--------+ + + + + | 11/02/ | Surgery | Surgery | Rose Allison | LEFT TOTAL KNEE | | 2019 | | | L, MD [address] | ARTHROPLASTY, | | | | | Ave [place], [place] | COMPLEX DUE TO PRIOR | | | | | [address] | INFECTION | | | | | [phone] | | | | | | | | +--------+ + + + + | 11/02/ | Erroneous | Orthopedics | Rose Allison | | | 2019 | Enc-IP | | L, MD [address] | | | | | | Ave [place], [place] | | | | | | [address] | | | | | | [phone] | | | | | | | | +--------+ + + + + | 11/17/ | Video/TeleH | Orthopedics | Yasmani Rodrigez | | | 2019 | ealth-Sched | | RADHA Harper [address] | | | | uled | | [address] | | | | | | [place], [place] | | | | | | [address] | | | | | | [phone] | | | | | | | | +--------+ + + + + | 12/16/ | Office | Orthopedics | Rose Allison | | | 2020 | Visit | | MD Shahzad [address] | | | | | | [place] | | | | | | [address] | | | | | | [phone] | | | | | | | | +--------+ + + + + documented as of this encounter Visit Diagnoses Not on filedocumented in this encounter"
--- OUTSIDE RECORDS SUMMARY | ~2019-10-15 | XMS | Encounter Summary ---
Demographics + + + | Address | [address] | | | [place] [address] | + + + | Home Phone | | + + + | Preferred Language | Unknown | + + + | Marital Status | | + + + | Scientology Affiliation | Unknown | + + + | Race | White | + + + | Ethnic Group | Not or | + + + Author + + + | Author | [facility] | + + + | Organization | [facility] | + + + | Address | Unknown | + + + | Phone | Unavailable | + + + Support + + +---------+ + | Name | Relationship | Address | Phone | + + +---------+ + | Rosalina Martinez | ECON | Unknown | | + + +---------+ + Care Team Providers + +------+ + | Care Home Manager Name | Role | Phone | + +------+ + | Mohan Bullock PLANNING ENGINEER | PCP | | + +------+ + Encounter Details +--------+ + + + + | Date | Type | Department | Care Team | Description | +--------+ + + + + | 09/06/ | Documentati | [facility] | Adán Justice RN | | | 2020 | on | Therapy Services at | [address] | | | | | [facility] | [address] [place], | | | | | [address] | [place] [address] | | | | | [facility] | [phone] | | | | | and Healing, | | | | | | Building | | | | | | [place], [place] | | | | | | [address] | | | | | | [phone] | | | +--------+ + + + [...] | | | | | | [place] [address] | | | | | | [phone] | | +--------+ + + + + | 10/20/ | Video/TeleH | Pre-operative | 4, [facility] [address] | | | 2019 | ealth-Sched | Medicine | [address] | | | | uled | | [place] [address] | | +--------+ + + + + [...] [place] | | | | | | [address] | | | | | | [phone] | | | | | | | | +--------+ + + + + | 11/02/ | Surgery | Surgery | Rose Allison | LEFT TOTAL KNEE | | 2019 | | | MD Shahzad [address] | ARTHROPLASTY, | | | | | [address] [place], [place] | COMPLEX DUE TO PRIOR | | | | | [address] | INFECTION | | | | | [phone] | | | | | | | | +--------+ + + + + | 11/02/ | Erroneous | Orthopedics | Rose Allison | | | 2019 | Enc-IP | | MD Shahzad [address] | | | | | | [address] [place], [place] | | | | | | [address] | | | | | | [phone] | | | | | | | | +--------+ + + + + | 11/17/ | Video/TeleH | Orthopedics | Yasmani Rodrigez | | | 2019 | ealth-Sched | | RADHA Harper [address] | | | | uled | | [address] | | | | | | [place], [place] | | | | | | [address] | | | | | | [phone] | | | | | | | | +--------+ + + + + | 12/16/ | Office | Orthopedics | Rose Allison | | | 2020 | Visit | | MD Shahzad [address] | | | | | | [place], [place] | | | | | | [address] | | | | | | [phone] | | | | | | | | +--------+ + + + + documented as of this encounter Visit Diagnoses Not on filedocumented in this encounter"
--- OUTSIDE RECORDS SUMMARY | 2019-10-15 13:38 | XMS ---
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 Care History Medical/Surgical 06/10/2019 [facility] \T\nbsp;Patient had a scheduled televisit appt. with Dr. Wise on 06/08/2019, but patient could not be reached - Patient\T\#39;s voicemail is full. I mailed letter to advise of phone issue and to use walk in clinic for non life threatening treatment.\T\nbsp; Advise for patient to contact clinic to reschedule for follow up. 05/05/2019 [facility] Pt stated that he saw foot doctor \T\xiomara; Dr. Grimaldo or Dr. Muller, and has a follow up with Dr. Tsai on 05/20/2019 for his knee. 01/23/2019 [facility] Patient has follow up appt. with Dr. Wise on 02/03/2019 E.D. VISIT COUNT (12 MO.) [address] [facility] TOTAL 8 NOTE: Visits indicate total known visits. ED/UCC VISIT TRACKING (12 MO.) 10/15/2019 13:35 [facility] [place] TYPE: Emergency COMPLAINT: - LT LEG PAIN/FALL 06/09/2019 14:53 [facility] Tam [place] TYPE: Emergency COMPLAINT: - ABD PAIN, HIP PAIN DIAGNOSES: - Right lower quadrant pain - Allergy status to other drugs, medicaments and biological sub - Diarrhea, unspecified - Allergy status to narcotic agent status 05/10/2019 12:26 [facility] [place] TYPE: Emergency [...] to analgesic agent status - Other intermediate project manager (current) drug therapy 01/22/2019 10:05 [facility] Tam [place] TYPE: Emergency COMPLAINT: - POSSIBLE LEG INFECTION DIAGNOSES: - Allergy status to other drugs, medicaments and biological sub - Allergy status to narcotic agent status - Other jail (current) drug therapy - Cutaneous abscess of right lower limb - Allergy status to analgesic agent status INPATIENT VISIT TRACKING (12 MO.) No inpatient visits to display in this time frame [id number]
[2019-10-15] MEDS ORDERED: SUDOGEST30 MG PO (13:43)
[2019-10-15] MEDS ORDERED: ONDANSETRON ODT8 MG PO (15:14)
[2019-10-15] MEDS ORDERED: NORCO 7.5-3251 EACH PO (15:14)
== END 2019-10-15 15:28 | disposition home or self-care (01) ==
LOC: ED 13:34
DX: S80.02XA Contusion of left knee, initial encounter (principal); K52.9 Noninfective gastroenteritis and colitis, unspecified; Z88.6 Allergy status to analgesic agent; Z88.8 Allergy status to other drugs, medicaments and biological substances; Z88.5 Allergy status to narcotic agent; W18.30XA Fall on same level, unspecified, initial encounter
CPT/HCPCS: 73560; 73562; 80053; 85025; 96361; 96374; 99284-25; J1170; J7030

== ENCOUNTER 2020-02-06 12:00 | Emergency (ER) | payer MEDICARE, OTHER ==
[~2020-02-06] VITALS: Ht 182.9 cm; Wt 99.8 kg
[~2020-02-06 12:00] MED LIST changes: +SUDOGEST30 MG PO
--- OUTSIDE RECORDS SUMMARY | 2020-02-06 12:02 | XMS ---
PreManage Notification: ORIANA POSADAS Security Account Support Manager Events No recent Security Events currently on file CRITERIA MET - [facility] - Has Care Guidelines - PDMP CARE PROVIDERS YUSEF MUNIZ Internal Medicine: Pulmonary Disease 05/05/2019-Current PHONE: Unknown Michael has no Care Guidelines for this patient. Care History Medical/Surgical 06/10/2019 [facility] \T\nbsp;Patient had a scheduled televisit appt. with Dr. Wise on 06/08/2019, but patient could not be reached - Patient\T\#39;s voicemail is full. I mailed letter to advise of phone issue and to use walk in clinic for non life threatening treatment.\T\nbsp; Advise for patient to contact clinic to reschedule for follow up. 05/05/2019 [facility] Pt stated that he saw foot doctor \T\xiomara; Dr. Grimaldo or Dr. Muller, and has a follow up with Dr. Tsai on 05/20/2019 for his knee. 01/23/2019 [facility] Patient has follow up appt. with Dr. Wise on 02/03/2019 E.D. VISIT COUNT (12 MO.) [address] [facility] TOTAL 7 NOTE: Visits indicate total known visits. ED/UCC VISIT TRACKING (12 MO.) 02/06/2020 12:[address] [facility] [place] TYPE: Emergency COMPLAINT: - LOWER BACK PAIN 10/15/2019 13:35 [facility] [place] TYPE: Emergency COMPLAINT: - LT LEG PAIN/FALL DIAGNOSES: - Fall on same level, unspecified, initial encounter - Noninfective gastroenteritis and colitis, unspecified - Allergy status to other drugs, medicaments and biological substances - Allergy status to analgesic agent - Allergy status to narcotic agent - Pain in left knee - Contusion of left knee, initial encounter 06/09/2019 14:53 [facility] [place] TYPE: Emergency COMPLAINT: - ABD PAIN, HIP PAIN DIAGNOSES: - Right lower quadrant pain - Allergy status to other drugs, medicaments and biological substances - Diarrhea, unspecified - Allergy status to narcotic agent 05/10/2019 12:26 [facility] [place] TYPE: Emergency COMPLAINT: - FALL DIAGNOSES: - Allergy status to narcotic agent - Allergy status to other drugs, medicaments and biological substances - Fall (on) (from) unspecified stairs and steps, initial encounter - Sprain of unspecified site of left knee, initial encounter - Sprain of unspecified ligament of left ankle, initial encounter - Allergy status to analgesic agent - Unspecified sprain of left foot, initial encounter 05/01/2019 08:37 [facility] [place] TYPE: Emergency COMPLAINT: - LEFT SIDE FALL INJURY DIAGNOSES: - Contusion of right knee, initial encounter - Fall (on) (from) unspecified stairs and steps, initial encounter - Pain in left ankle and joints of left foot - Sprain of unspecified ligament of left ankle, initial encounter 04/15/2019 09:20 [facility] [place] TYPE: Emergency COMPLAINT: - RIGHT LEG PAIN,WORKERS COMP DIAGNOSES: - Allergy status to analgesic agent - Other specified soft tissue disorders - Allergy status to other drugs, medicaments and biological substances - Allergy status to narcotic agent 04/14/2019 10:16 [facility] [place] TYPE: Emergency COMPLAINT: - R LEG INFECTION,MSE TO [place] TSAI DIAGNOSES: - Other specified soft tissue disorders INPATIENT VISIT TRACKING (12 MO.) 11/03/2019 11:09 [facility] TYPE: Orthopedic DIAGNOSES: 60386. Other unilateral secondary osteoarthritis of knee 81066. Other unilateral secondary osteoarthritis of knee [email or web address]
[2020-02-06] MEDS ORDERED: MAVYRET 100-401 EACH PO (12:11)
[2020-02-06] MEDS ORDERED: NORCO 7.5-3251 EACH PO (14:48)
== END 2020-02-06 14:58 | disposition home or self-care (01) ==
LOC: ED 12:00
DX: S30.0XXA Contusion of lower back and pelvis, initial encounter (principal); W10.8XXA Fall (on) (from) other stairs and steps, initial encounter; Z88.8 Allergy status to other drugs, medicaments and biological substances; Z88.5 Allergy status to narcotic agent; Z79.899 Other long term (current) drug therapy
CPT/HCPCS: 72070; 72100; 96374; 96376; 99283-25; A9270; J1170

== ENCOUNTER 2020-02-08 10:18 | Emergency (ER) | payer MEDICARE, OTHER ==
[~2020-02-08] VITALS: Ht 182.9 cm; Wt 99.8 kg
[~2020-02-08 10:18] MED LIST changes: +MAVYRET 100-401 EACH PO
--- OUTSIDE RECORDS SUMMARY | 2020-02-08 10:22 | XMS ---
PreManage Notification: ORIANA POSADAS Security Rand Sewer Events No recent Security Events currently on file CRITERIA MET - [facility] - Has Care Guidelines - PDMP - [facility] - 2 Visits in 30 Days CARE PROVIDERS YUSEF MUNIZ Internal Medicine: Pulmonary Disease 05/05/2019-Current PHONE: Unknown Michael has no Care Guidelines for this patient. Care History Medical/Surgical 06/10/2019 [facility] \T\nbsp;Patient had a scheduled televisit appt. with Dr. Wise on 06/08/2019, but patient could not be reached - Patient\T\#39;s voicemail is full. I mailed letter to advise of phone issue and to use walk in clinic for non life threatening treatment.\T\nbsp; Advise for patient to contact clinic to reschedule for follow up. 05/05/2019 [facility] Pt stated that he saw foot doctor \T\xiomara; Dr. Grimaldo or Dr. Muller, and has a follow up with Dr. Tsai on 05/20/2019 for his knee. 01/23/2019 [facility] Patient has follow up appt. with Dr. Wise on 02/03/2019 E.D. VISIT COUNT (12 MO.) 8 [facility] TOTAL 8 NOTE: Visits indicate total known visits. ED/UCC VISIT TRACKING (12 MO.) 02/08/2020 10:20 [facility] [place] TYPE: Emergency COMPLAINT: - FALL, BACK PAIN 02/06/2020 12:00 [facility] [place] TYPE: Emergency COMPLAINT: - LOWER BACK [...] INPATIENT VISIT TRACKING (12 MO.) 11/03/2019 11:09 [facility] TYPE: Orthopedic DIAGNOSES: 80759. Other unilateral secondary osteoarthritis of knee 45574. Other unilateral secondary osteoarthritis of knee [email or web address]
[2020-02-08] MEDS ORDERED: DICLOFENAC SOD100 G1 TOP (11:05)
[2020-02-08] MEDS ORDERED: ROBAXIN-750750 MG PO (11:48)
[2020-02-08] MEDS ORDERED: LIDODERM1 EACH TOP (11:48)
== END 2020-02-08 11:58 | disposition home or self-care (01) ==
LOC: ED 10:18
DX: M54.5 Low back pain (principal); F11.90 Opioid use, unspecified, uncomplicated; Z88.8 Allergy status to other drugs, medicaments and biological substances; Z88.5 Allergy status to narcotic agent; Z79.899 Other long term (current) drug therapy
CPT/HCPCS: 99283

== ENCOUNTER 2020-02-10 12:03 | Emergency (ER) | payer MEDICARE, OTHER ==
[~2020-02-10 12:03] MED LIST changes: +DICLOFENAC SOD100 G1 TOP; +LIDODERM1 EACH TOP; +ROBAXIN-750750 MG PO
--- OUTSIDE RECORDS SUMMARY | 2020-02-10 12:06 | XMS ---
PreManage Notification: ORIANA POSADAS Security Interactive Media Specialist Events No recent Security Events currently on file CRITERIA MET - [facility] - Has Care Guidelines - [facility] - 2 Visits in 30 Days CARE PROVIDERS YUSEF MUNIZ Internal Medicine: Pulmonary Disease 05/05/2019-Current PHONE: Unknown Michael has no Care Guidelines for this patient. Care History Medical/Surgical 06/10/2019 [facility] \T\nbsp;Patient had a scheduled televisit appt. with Dr. Wise on 06/08/2019, but patient could not be reached - Patient\T\#39;s voicemail is full. I mailed letter to advise of phone issue and to use walk in clinic for non life threatening treatment.\T\nbsp; Advise for patient to contact clinic to reschedule for follow up. 05/05/2019 [facility] Pt stated that he saw foot doctor \T\xiomara; Dr. Grimaldo or Dr. Muller, and has a follow up with Dr. Tsai on 05/20/2019 for his knee. 01/23/2019 [facility] Patient has follow up appt. with Dr. Wise on 02/03/2019 E.D. VISIT COUNT (12 MO.) 9 [facility] TOTAL 9 NOTE: Visits indicate total known visits. ED/UCC VISIT TRACKING (12 MO.) 02/10/2020 12:04 [facility] [place] TYPE: Emergency COMPLAINT: - BACK PAIN 02/08/2020 10:20 [facility] [place] TYPE: Emergency COMPLAINT: - FALL, BACK PAIN 02/06/2020 12:00 [facility] [place] TYPE: Emergency COMPLAINT: - LOWER BACK PAIN DIAGNOSES: - Other extermination inspector (current) drug therapy - Contusion of lower back and pelvis, initial encounter - Fall (on) (from) other stairs and steps, initial encounter - Allergy status to other drugs, medicaments and biological substances - Low back pain - Allergy status to narcotic agent 10/15/2019 13:35 [facility] [place] TYPE: Emergency [...] status to narcotic agent 04/14/2019 10:16 [facility] TYPE: Emergency COMPLAINT: - R LEG INFECTION,MSE TO ORTHO DR TSAI DIAGNOSES: - Other specified soft tissue disorders INPATIENT VISIT TRACKING (12 MO.) 11/03/2019 11:09 [facility] TYPE: Orthopedic DIAGNOSES: 04751. Other unilateral secondary osteoarthritis of knee 89746. Other unilateral secondary osteoarthritis of knee [id number]
[2020-02-11] MEDS ORDERED: VALIUM5 MG PO (20:48)
[2020-02-11] MEDS ORDERED: LIDODERM1 EACH TOP (20:48)
== END 2020-02-10 12:10 | disposition left against medical advice (07) ==
LOC: ED 12:03
DX: Z53.21 Procedure and treatment not carried out due to patient leaving prior to being seen by health care provider (principal)

== ENCOUNTER 2020-02-11 19:37 | Emergency (ER) | payer MEDICARE, OTHER ==
[~2020-02-11] VITALS: Ht 182.9 cm; Wt 99.8 kg
--- OUTSIDE RECORDS SUMMARY | 2020-02-11 19:40 | XMS ---
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 Care History Medical/Surgical 06/10/2019 [facility] \T\nbsp;Patient had a scheduled televisit appt. with Dr. Wise on 06/08/2019, but patient could not be reached - Patient\T\#39;s voicemail is full. I mailed letter to advise of phone issue and to use walk in clinic for non life threatening treatment.\T\nbsp; Advise for patient to contact clinic to reschedule for follow up. 05/05/2019 [facility] Pt stated that he saw foot doctor \T\xiomara; Dr. Grimaldo or Dr. Muller, and has a follow up with Dr. Tsai on 05/20/2019 for his knee. 01/23/2019 [facility] Patient has follow up appt. with Dr. Wise on 02/03/2019 E.D. VISIT COUNT (12 MO.) 10 [facility] TOTAL 10 NOTE: Visits indicate total known visits. ED/UCC VISIT TRACKING (12 MO.) 02/11/2020 19:37 [facility] [place] TYPE: Emergency COMPLAINT: - FALL 02/10/2020 12:04 [facility] [place] TYPE: Emergency COMPLAINT: - BACK PAIN 02/08/2020 10:20 [facility] [place] TYPE: Emergency COMPLAINT: - BACK PAIN DIAGNOSES: - Opioid use, unspecified, uncomplicated - Allergy status to narcotic agent - Low back pain - Allergy status to other drugs, medicaments and biological substances - Other care home (current) drug therapy 02/06/2020 12:00 [facility] [place] TYPE: Emergency COMPLAINT: - LOWER BACK PAIN DIAGNOSES: - Other manager terminal (current) drug therapy - Contusion of lower [...] INPATIENT VISIT TRACKING (12 MO.) 11/03/2019 11:09 [facility] TYPE: Orthopedic DIAGNOSES: 28957. Other unilateral secondary osteoarthritis of knee 15573. Other unilateral secondary osteoarthritis of knee [email or web address]
[2020-02-11] MEDS ORDERED: LIDODERM1 EACH TOP (20:48)
[2020-02-11] MEDS ORDERED: VALIUM5 MG PO (20:48)
== END 2020-02-11 21:07 | disposition home or self-care (01) ==
LOC: ED 19:37
DX: M62.830 Muscle spasm of back (principal); Z88.8 Allergy status to other drugs, medicaments and biological substances; Z88.5 Allergy status to narcotic agent; Z79.899 Other long term (current) drug therapy
CPT/HCPCS: 99283; A9270

== ENCOUNTER 2020-03-05 15:12 | Emergency (ER) | payer MEDICARE, OTHER ==
[~2020-03-05] VITALS: Ht 182.9 cm; Wt 99.8 kg
[~2020-03-05 15:12] MED LIST changes: +VALIUM5 MG PO
--- OUTSIDE RECORDS SUMMARY | 2020-03-05 15:14 | XMS ---
PreManage Notification: ORIANA POSADAS Security Emergency Medicine Medical Director Events 1 event(s) in the past 18 months Most recent security events: Elopement at [facility] 02/10/2020 12:04 - Other Details: PATIENT LWBS. CRITERIA MET - 6 ED Visits in 6 Months - [facility] - Has Care Guidelines - PDMP - [facility] - 2 Visits in 30 Days CARE PROVIDERS YUSEF MUNIZ Internal Medicine: Pulmonary Disease 05/05/2019-Current PHONE: Unknown Michael has no Care Guidelines for this patient. Care History Medical/Surgical 06/10/2019 [facility] \T\nbsp;Patient had a scheduled televisit appt. with Dr. Wise on 06/08/2019, but patient could not be reached - Patient\T\#39;s voicemail is full. I mailed letter to advise of phone issue and to use walk in clinic for non life threatening treatment.\T\nbsp; Advise for patient to contact clinic to reschedule for follow up. 05/05/2019 [facility] Pt stated that he saw foot doctor \T\xiomara; Dr. Grimaldo or Dr. Muller, and has a follow up with Dr. Tsai on 05/20/2019 for his knee. 01/23/2019 [facility] Patient has follow up appt. with Dr. Wise on 02/03/2019 E.D. VISIT COUNT (12 MO.) [facility] TOTAL 11 NOTE: Visits indicate total known visits. ED/UCC VISIT TRACKING (12 MO.) 03/05/2020 15:13 [facility] [place] TYPE: Emergency COMPLAINT: - FALL 02/11/2020 19:37 [facility] [place] TYPE: Emergency COMPLAINT: - FALL DIAGNOSES: - Other skilled nursing (current) drug therapy - Allergy status to narcotic agent - Allergy status to other drugs, medicaments and biological substances - Muscle spasm of back 02/10/2020 12:04 [facility] [place] TYPE: Emergency COMPLAINT: - BACK PAIN DIAGNOSES: - Procedure and treatment not carried out due to patient leaving prior to being seen by health care provider 02/08/2020 10:20 [facility] [place] TYPE: Emergency COMPLAINT: - BACK PAIN DIAGNOSES: - Opioid use, unspecified, uncomplicated - Allergy status to narcotic agent - Low back pain - Allergy status to other drugs, medicaments and biological substances - Other skilled nursing (current) drug therapy 02/06/2020 12:00 [facility] [place] TYPE: Emergency COMPLAINT: - LOWER BACK PAIN DIAGNOSES: - Other lead php developer (current) drug therapy - Contusion of lower [...] INPATIENT VISIT TRACKING (12 MO.) 11/03/2019 11:09 [facility] TYPE: Orthopedic DIAGNOSES: 09298. Other unilateral secondary osteoarthritis of knee 50328. Other unilateral secondary osteoarthritis of knee [email or web address]
[2020-03-05] MEDS ORDERED: NORCO 7.5-3251 EACH PO (16:27)
== END 2020-03-05 16:58 | disposition home or self-care (01) ==
LOC: ED 15:12
DX: S93.402A Sprain of unspecified ligament of left ankle, initial encounter (principal); Z88.8 Allergy status to other drugs, medicaments and biological substances; Z88.5 Allergy status to narcotic agent; Z79.899 Other long term (current) drug therapy; W10.9XXA Fall (on) (from) unspecified stairs and steps, initial encounter
CPT/HCPCS: 73610; 99283-25

== ENCOUNTER 2020-11-22 16:00 | Emergency (ER) | payer OTHER, MEDICARE ==
[~2020-11-22] VITALS: Ht 182.9 cm; Wt 99.8 kg
--- OUTSIDE RECORDS SUMMARY | 2020-11-22 16:10 | XMS ---
PreManage Notification: ORIANA POSADAS Security Lgsw Events 1 event(s) in the past 18 months Most recent security events: Elopement at [facility] 02/10/2020 12:04 - Other Details: PATIENT LWBS. CRITERIA MET - [facility] - Has Care Guidelines - PDMP CARE [...] on 02/03/2019 E.D. VISIT COUNT (12 MO.) 6 [facility] TOTAL 6 NOTE: Visits indicate total known visits. ED/UCC VISIT TRACKING (12 MO.) 11/22/2020 16:08 [facility] [place] TYPE: Emergency COMPLAINT: - L HAND INJURY 03/05/2020 15:13 [facility] [place] TYPE: Emergency COMPLAINT: - FALL DIAGNOSES: - Allergy status to other drugs, medicaments and biological substances - Allergy status to narcotic agent - Sprain of unspecified ligament of left ankle, initial encounter - Fall (on) (from) unspecified stairs and steps, initial encounter - Other fdc (current) drug therapy 02/11/2020 19:37 [facility] [place] TYPE: Emergency COMPLAINT: - FALL DIAGNOSES: - Other long term acute care registered nurse (current) drug therapy - Allergy status to narcotic agent - Allergy status to other drugs, medicaments and biological substances - Allergy status to narcotic agent - Muscle spasm of back - Allergy status to other drugs, medicaments and biological substances 02/10/2020 12:04 [facility] [place] TYPE: Emergency [...] substances - Allergy status to narcotic agent - Other fdc (current) drug therapy 02/06/2020 12:00 [facility] [place] TYPE: Emergency COMPLAINT: - LOWER BACK PAIN DIAGNOSES: - Allergy status to narcotic agent - Other fdc (current) drug therapy - Allergy status to other drugs, medicaments and biological substances - Contusion of lower back and pelvis, initial encounter - Fall (on) (from) other stairs and steps, initial encounter - Allergy status to other drugs, medicaments and biological substances - Low back pain - Allergy status to narcotic agent INPATIENT VISIT TRACKING (12 MO.) No inpatient visits to display in this time frame [email or web address]
[2020-11-22] MEDS ORDERED: MONTELUKAST SOD10 MG PO (18:54)
[2020-11-22] MEDS ORDERED: CARBAMAZEPINE200 MG PO (18:54)
[2020-11-22] MEDS ORDERED: OXYCODONE-ACET1 EAC1 PO (18:54)
== END 2020-11-22 20:05 | disposition home or self-care (01) ==
LOC: ED 16:00
PROC: 0HQGXZZ Repair Left Hand Skin, External Approach (ICD-10-PCS; principal; 2020-11-22)
DX: S61.211A Laceration without foreign body of left index finger without damage to nail, initial encounter (principal); W26.8XXA Contact with other sharp object(s), not elsewhere classified, initial encounter; Z88.5 Allergy status to narcotic agent; Z88.6 Allergy status to analgesic agent; Z79.899 Other long term (current) drug therapy
CPT/HCPCS: 12001; 99282-25

== ENCOUNTER 2020-11-27 14:44 | Emergency (ER) | payer OTHER, MEDICARE, MEDICAID ==
[~2020-11-27] VITALS: Ht 182.9 cm; Wt 102.8 kg
[~2020-11-27 14:44] MED LIST changes: +CARBAMAZEPINE200 MG PO; +MONTELUKAST SOD10 MG PO; +OXYCODONE-ACET1 EAC1 PO
--- OUTSIDE RECORDS SUMMARY | 2020-11-27 14:46 | XMS ---
PreManage Notification: ORIANA POSADAS Security Keel Press Operator Events 1 event(s) in the past 18 months Most recent security events: Elopement at [facility] 02/10/2020 12:04 - Other Details: PATIENT LWBS. CRITERIA MET - [facility] - 2 Visits in 30 Days - PDMP - [facility] - Has Care Guidelines CARE PROVIDERS YUSEF MUNIZ Internal Medicine: Pulmonary Disease 05/05/2019-Current PHONE: Unknown Guidelines Source: [facility] Guidelines Date: 11/23/2020 Other Information: Patient getting scheduled with clinic for suture removal. Care History Medical/Surgical 06/10/2019 [facility] \T\nbsp;Patient had a scheduled televisit appt. with Dr. Wise on 06/08/2019, but patient could not be reached - Patient\T\#39;s voicemail is full. I mailed letter to advise of phone issue and to use walk in clinic for non life threatening treatment.\T\nbsp; Advise for patient to contact clinic to reschedule for follow up. 05/05/2019 [facility] Pt stated that he saw foot doctor \T\nealash; Dr. Grimaldo or Dr. Muller, and has a follow up with Dr. Tsai on 05/20/2019 for his knee. 01/23/2019 [facility] Patient has follow up appt. with Dr. Wise on 02/03/2019 [place] VISIT COUNT (12 MO.) 7 [facility] Pfe[facility] TOTAL 7 NOTE: Visits indicate total known visits. ED/UCC VISIT TRACKING (12 MO.) 11/27/2020 14:45 [facility] [place] TYPE: Emergency COMPLAINT: - LEFT HAND INJ 11/22/2020 16:08 [facility] [place] TYPE: Emergency COMPLAINT: - L HAND INJURY DIAGNOSES: - Allergy status to analgesic agent - Allergy status to narcotic agent - Laceration without foreign body of left index finger without damage to nail, initial encounter - Other [facility] (current) drug therapy - Contact with other sharp object(s), not elsewhere classified, initial encounter 03/05/2020 15:13 [facility] [place] TYPE: Emergency COMPLAINT: - FALL DIAGNOSES: - Allergy status to other drugs, medicaments and biological substances - Allergy status to narcotic agent - Sprain of unspecified ligament of left ankle, initial encounter - Fall (on) (from) unspecified stairs and steps, initial encounter - Other [facility] (current) drug therapy 02/11/2020 19:37 [facility] [place] TYPE: Emergency COMPLAINT: - FALL DIAGNOSES: - Other [facility] (current) drug therapy - Allergy status to [...] Allergy status to narcotic agent - Other [facility] (current) drug therapy 02/06/2020 12:00 [facility] [place] TYPE: Emergency COMPLAINT: - LOWER BACK PAIN DIAGNOSES: - Allergy status to narcotic agent - Other [facility] (current) drug therapy - Allergy status to [...] visits to display in this time frame [id number]
[2020-11-27] MEDS ORDERED: CEPHALEXIN500 M1 PO (16:39)
== END 2020-11-27 16:57 | disposition home or self-care (01) ==
LOC: ED 14:44
DX: S61.412D Laceration without foreign body of left hand, subsequent encounter (principal); L03.114 Cellulitis of left upper limb; Z88.6 Allergy status to analgesic agent; Z88.5 Allergy status to narcotic agent; Z79.899 Other long term (current) drug therapy
CPT/HCPCS: 73130; 99283

== ENCOUNTER 2020-11-29 11:02 | Emergency (ER) | payer OTHER, MEDICARE, MEDICAID ==
[~2020-11-29] VITALS: Ht 182.9 cm; Wt 102.8 kg
[~2020-11-29 11:02] MED LIST changes: +CEPHALEXIN500 M1 PO
--- OUTSIDE RECORDS SUMMARY | 2020-11-29 11:06 | XMS ---
PreManage Notification: ORIANA POSADAS Security Ship Surveyor Events 1 event(s) in the past 18 months Most recent security events: Elopement at [facility] 02/10/2020 12:04 - Other Details: PATIENT LWBS. CRITERIA MET - [facility] - Has Care Guidelines - PDMP - [facility] - 2 Visits in 30 Days CARE PROVIDERS YUSEF MUNIZ Internal Medicine: Pulmonary Disease 05/05/2019-Current PHONE: Unknown Guidelines Source: [facility] Guidelines Date: 11/23/2020 Other Information: Patient getting scheduled with clinic for suture removal. Care History Medical/Surgical 06/10/2019 [facility] \T\nbsp;Patient had a scheduled televisit appt. with Dr. Wsie on 06/08/2019, but patient could not be reached - Patient\T\#39;s voicemail is full. I mailed letter to advise of phone issue and to use walk in clinic for non life threatening treatment.\T\nbsp; Advise for patient to contact clinic to reschedule for follow up. 05/05/2019 [facility] Pt stated that he saw foot doctor \T\nealash; Dr. Grimaldo or Dr. Muller, and has a follow up with Dr. Tsai on 05/20/2019 for his knee. 01/23/2019 [facility] Patient has follow up appt. with Dr. Wise on 02/03/2019 [place] VISIT COUNT (12 MO.) 8 GILLIAN Pfeiffer TOTAL 8 NOTE: Visits indicate total known visits. ED/UCC VISIT TRACKING (12 MO.) 11/29/2020 11:03 [facility] [place] TYPE: Emergency COMPLAINT: - L HAND SWELLING, REDNESS, PAIN 11/27/2020 14:45 [facility] [place] TYPE: Emergency COMPLAINT: - LEFT HAND INJ 11/22/2020 16:[address] [facility] [place] TYPE: Emergency COMPLAINT: - L HAND [...] stairs and steps, initial encounter - Other training coordinator (current) drug therapy 02/11/2020 19:37 [facility] [place] TYPE: Emergency COMPLAINT: - FALL DIAGNOSES: - Other training coordinator (current) drug therapy - Allergy status to [...] Allergy status to narcotic agent - Other training coordinator (current) drug therapy - Allergy status to [...] visits to display in this time frame [id number]
[2020-11-29] MEDS ORDERED: BACTRIM DS TAB1 EACH PO (12:13)
== END 2020-11-29 12:30 | disposition home or self-care (01) ==
LOC: ED 11:02
DX: S61.411D Laceration without foreign body of right hand, subsequent encounter (principal); L03.113 Cellulitis of right upper limb; Z88.6 Allergy status to analgesic agent; Z88.5 Allergy status to narcotic agent; Z79.899 Other long term (current) drug therapy
CPT/HCPCS: 99283

== ENCOUNTER 2021-08-10 12:26 | Emergency (ER) | payer MEDICARE, OTHER ==
[~2021-08-10] VITALS: Ht 182.9 cm; Wt 94.4 kg
[~2021-08-10 12:26] MED LIST changes: +HYDROCODON-ACE1 EA10 PO
--- OUTSIDE RECORDS SUMMARY | 2021-08-10 12:29 | XMS ---
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 CRITERIA MET - [facility] - Has Care Guidelines - [facility] - 2 Visits in 30 Days - PDMP CARE PROVIDERS YUSEF MUNIZ Internal Medicine: Pulmonary Disease 05/05/2019-Current PHONE: Unknown Guidelines Source: [facility] Guidelines Date: 11/23/2020 Other Information: Patient getting scheduled with clinic for suture removal. Care History Medical/Surgical 11/30/2020 [facility] Patient tried to be seen by Dr. Wise and walk in clinic, but notes show there was not an available provider in the clinic on 11/29/2020, therefore he went to ER. 06/10/2019 [facility] \T\nbsp;Patient had a scheduled televisit appt. with Dr. Wise on 06/08/2019, but patient could not be reached - Patient\T\#39;s voicemail is full. I mailed letter to advise of phone issue and to use walk in clinic for non life threatening treatment.\T\nbsp; Advise for patient to contact clinic to reschedule for follow up. 05/05/2019 [facility] Pt stated that he saw foot doctor \T\xiomara; Dr. Grimaldo or Dr. Muller, and has a follow up with Dr. Tsai on 05/20/2019 for his knee. [place] VISIT COUNT (12 MO.) [address] [facility] TOTAL 5 NOTE: Visits indicate total known visits. ED/UCC VISIT TRACKING (12 MO.) 08/10/2021 12:27 [facility] [place] TYPE: Emergency COMPLAINT: - L FOOT MIDDLE TOE WOUND 07/25/2021 16:03 [facility] [place] TYPE: Emergency COMPLAINT: - POST OP PROBLEM DIAGNOSES: - Local infection of the skin and subcutaneous tissue, unspecified - Acquired absence of right leg below knee - Allergy status to analgesic agent - Allergy status to narcotic agent - Pain in left toe(s) - Allergy status to other drugs, medicaments and biological substances 11/29/2020 11:03 [facility] [place] TYPE: Emergency COMPLAINT: - L HAND SWELLING, REDNESS, PAIN DIAGNOSES: - Allergy status to narcotic agent - Cellulitis of right upper limb - Allergy status to analgesic agent - Laceration without foreign body of right hand, subsequent encounter - Other superintendent terminal (current) drug therapy 11/27/2020 14:45 [facility] [place] TYPE: Emergency COMPLAINT: - LEFT HAND INJ DIAGNOSES: - Cellulitis of left upper limb - Allergy status to narcotic agent - Other prison (current) drug therapy - Allergy status to analgesic agent - Infection following a procedure, superficial incisional surgical site, initial encounter - Laceration without foreign body of left hand, subsequent encounter 11/22/2020 16:[address] [facility] [place] TYPE: Emergency COMPLAINT: - L HAND INJURY DIAGNOSES: - Allergy status to analgesic agent - Allergy status to narcotic agent - Laceration without foreign body of left index finger without damage to nail, initial encounter - Other superintendent terminal (current) drug therapy - Contact with other sharp object(s), not elsewhere classified, initial encounter INPATIENT VISIT TRACKING (12 MO.) No inpatient visits to display in this time frame [id number]
[2021-08-10] MEDS ORDERED: HYDROCODON-ACE1 EAC8 PO (12:58)
[2021-08-10] MEDS ORDERED: AMOX TR-K CLV1 EAC1 PO (12:58)
== END 2021-08-10 16:54 | disposition home or self-care (01) ==
LOC: ED 12:26
DX: M86.9 Osteomyelitis, unspecified (principal); Z88.6 Allergy status to analgesic agent; Z88.8 Allergy status to other drugs, medicaments and biological substances; Z88.5 Allergy status to narcotic agent; Z79.899 Other long term (current) drug therapy
CPT/HCPCS: 36415; 36569; 73630; 80053; 85025; 86140; 96374; 99283-25; J0696

== ENCOUNTER 2023-01-18 02:12 | Emergency (ER) | payer OTHER, MEDICARE ==
[~2023-01-18] VITALS: Ht 182.9 cm; Wt 94.4 kg
--- OUTSIDE RECORDS SUMMARY | ~2023-01-18 | XMS | Continuity of Care Document ---
Demographics + + + | Address | [address] | | | [place] [address] | + + + | Preferred Language | Unknown | + + + | Marital Status | | + + + | Pentecostalism Affiliation | Quaker (non-Yazidism, non-specific) | + + + | Race | White | + + + | Ethnic Group | Not or | + + + Author + + + | Author | [facility] | + + + | Organization | [facility] | + + + | Address | [address] [place] [address] | | | [place] [address] | + + + | Phone | | + + + Care Team Providers + + + + | Care Drawer Maker Name | Role | Phone | + + + + Unavailable | Unavailable | + + + + Unavailable | Unavailable | + + + + Unavailable | Unavailable | + + + + Unavailable | Unavailable | + + + + Unavailable | Unavailable | + + + + Allergies No information. Encounters No information. Functional Status No information. Immunizations No information. Medications + + + + | date | description | facility | + + + + | 2023-01-11 00:00 | apap 325 mg / oxycodone | [facility] | | | hydrochloride 5 mg oral | [facility] | | | tablet | | + + + + | 2023-01-11 00:00 | acetaminophen 325 mg / | [facility] | | | oxycodone hydrochloride 5 | [facility] | | | mg oral tablet [percocet] | | + + + + | 2023-01-12 00:00 | cefazolin 1 gm injection | [facility] | | | | [facility] | + + + + | 2023-01-12 00:00 | [id number] 0.3 ml | [facility] | | | epinephrine 1 mg/ml | [facility] | | | auto-injector | | + + + + | 2023-01-12 00:00 | omeprazole 20 mg (as | [facility] | | | omeprazole magnesium 20.6 | [facility] | | | mg) delayed release oral | | | | capsule | | + + + + | 2023-01-11 00:00 | smx 800 mg / tmp 160 mg | [facility] | | | oral tablet | [facility] | + + + + | 2022-12-27 00:00 | amoxicillin 500 mg oral | [facility] | | | capsule | [place] [facility] | + + + + Problems + + + + | date | description | facility | + + + + | 2023-01-11 14:58:06 | Dental Pain | [facility] - | | | | [place] | + + + + | 2023-01-11 14:58:06 | Wound Infection | [facility] - | | | | [place] | + + + + | 2023-01-11 14:58:06 | Other chronic pain | [facility] - | | | | [place] | + + + + | 2023-01-11 14:58:06 | Disorder of teeth and | [facility] - | | | supporting structures, | [place] | | | unspecified | | + + + + | 2023-01-11 14:58:06 | Pain in right leg | [facility] - | | | | [place] | + + + + | 2023-01-11 14:58:06 | 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 stump | [place] | + + + + | 2023-01-11 15:27:58 | Other chronic pain | [facility] - | | | | [place] | + + + + | 2023-01-11 15:27:58 | Disorder of teeth and | [facility] - | | | supporting structures, | [place] | | | unspecified | | + + + + | 2023-01-11 15:27:58 | Pain in right leg | [facility] - | | | | [place] | + + + + | 2023-01-11 15:48:53 | Pain in right leg | [facility] - | | | | [place] | + + + + | 2023-01-11 23:20 | Fall | [facility] - | | | | [place] | + + + + | 2023-01-11 23:20 | Fall | [facility] - | | | | [place] | + + + + | 2023-01-11 23:20 | Unspecified dislocation of | [facility] - | | | right acromioclavicular | [place] | | | joint, initial encounter | | + + + + | 2023-01-11 23:20 | Contusion of right hip, | [facility] - | | | initial encounter | [place] | + + + + | 2023-01-11 23:20 | Unspecified fall, initial | [facility] - | | | encounter | [place] | + + + + | 2023-01-12 08:47:01 | Arm Pain | [facility] - | | | | [place] | + + + + | 2023-01-12 08:47:01 | Arm Pain | [facility] - | | | | [place] | + + + + | 2023-01-12 09:33 | Arm Pain | [facility] - | | | | [place] | + + + + | 2023-01-12 09:33 | Unspecified dislocation of | [facility] - | | | right acromioclavicular | [place] | | | joint, subsequent encounter | | | | | | + + + + | 2023-01-12 09:33 | 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 | | | [facility] | [facility] | + + + + | 2023-01-11 00:00 | CBC W AUTO DIFF [facility] | [facility] | | | | [place] [facility] | + + + + Results/Labs +--------+--------+ +---------+--------+---------+ | test | date | facility | value | unit | notes | +--------+--------+ +---------+--------+---------+ + + | Result panel 1 | + + + + + + + + + | Specimen | (no date) | [facility] | (missing) | (missing) | (missing) | | collection | [facility] | | | | | (procedure) | | [facility] | | | | + + + + + + + + + | Result panel 2 | + + + + + + + + + | | (no date) | [facility] | (missing) | (missing) | (missing) | | (unavailable | | [facility] | | | | | ) | | [facility] | | | | + + + + + + + + + | Result panel 3 | + + + + + + + + + | Specimen | (no date) | [facility] | (missing) | (missing) | (missing) | | collection | | [facility]gent Care | | | | | (procedure) | | [place] [facility] | | | | + + + + + + + + + | Result panel 4 | + + + + + + + + + | | (no date) | [facility] | (missing) | (missing) | (missing) | | (unavailable | | [facility]gent Care | | | | | ) | | [place] [facility] | | | | + + + + + + + + + | Result panel 5 | + + + + + + + + + | Specimen | (no date) | [facility] | (missing) | (missing) | (missing) | | collection | | [facility] Care | | | | | (procedure) | | [place] | | | | + + + + + + + + + | Result panel 6 | + + + + + +--------+ + + | POCT MIXED | 2023-01-11 | [facility] | 0.4 | k/ul | (missing) | | (10*3/UL) | | Health | | | | | BLOOD AUTO | | System - | | | | | CNT | | [place] | | | | + + + +--------+ + + | POCT TOTAL | 2023-01-11 | [facility] | 0.6 | mg/dl | (missing) | | BILIRUBIN | | Health | | | | | | | System - | | | | | | | [place] | | | | + + + +--------+ + + | POCT | 2023-01-11 | [facility] | 1.0 | k/ul | (missing) | | LYMPHOCYTES | | Health | | | | | (10*3/UL) | | System - | | | | | BLOOD AUTO | | [place] | | | | | CNT | | | | | | + + + +--------+ + + | POCT | 2023-01-11 | [facility] | 1.1 | mg/dl | (missing) | | CREATININE | | Health | | | | | BLOOD | | System - | | | | | | | [place] | | | | + + + +--------+ + + | POCT BUN | 2023-01-11 | [facility] | 10 | mg/dl | (missing) | | | | Health | | | | | | | System - | | | | | | | [place] | | | | + + + +--------+ + + | POCT | 2023-01-11 | [facility] | 108 | mg/dl | (missing) | | GLUCOSE | | Health | | | | | | | System - | | | | | | | [place] | | | | + + + +--------+ + + | POCT | 2023-01-11 | [facility] | 111 | mmol/l | (missing) | | CHLORIDE | | Health | | | | | | | System - | | | | | | | [place] | | | | + + + +--------+ + + | POCT | 2023-01-11 | [facility] | 116 | u/l | (missing) | | ALKALINE | | Health | | | | | PHOSPHATASE | | System - | | | | | | | [place] | | | | + + + +--------+ + + | POCT RDW | 2023-01-11 | [facility] | 12.7 | % | (missing) | | | | Health | | | | | | | System - | | | | | | | [place] | | | | + + + +--------+ + + | POCT HGB | 2023-01-11 | [facility] | 14.5 | gm/dl | (missing) | | | | Health | | | | | | | System - | | | | | | | [place] | | | | + + + +--------+ + + | POCT SODIUM | 2023-01-11 | [facility] | 141 | mmol/l | (missing) | | | | Health | | | | | | | System - | | | | | | | [place] | | | | + + + +--------+ + + | POCT | 2023-01-11 | [facility] | 205 | k/ul | (missing) | | PLATELET | | Health | | | | | COUNT | | System - | | | | | | | [place] | | | | + + + +--------+ + + | POCT | 2023-01-11 | [facility] | 21.8 | % | (missing) | | LYMPHOCYTES/ | | Health | | | | | 100 | | System - | | | | | LEUKOCYTES | | [place] | | | | | BLOOD BY | | | | | | | AUTO CNT | | | | | | + + + +--------+ + + | POCT TCO2 | 2023-01-11 | [facility] | 24 | mmol/l | (missing) | | (CHEM 14) | | Health | | | | | | | System - | | | | | | | [place] | | | | + + + +--------+ + + | POCT AST | 2023-01-11 | [facility] | 26 | u/l | (missing) | | (SGOT) | | Health | | | | | | | System - | | | | | | | [place] | | | | + + + +--------+ + + | POCT ALT | 2023-01-11 | [facility] | 27 | u/l | (missing) | | (SGPT) | | Health | | | | | | | System - | | | | | | | [place] | | | | + + + +--------+ + + | LIPEMIA | 2023-01-11 | [facility] | 3 | (missing) | (missing) | | (POC) | | Health | | | | | | | System - | | | | | | | [place] | | | | + + + +--------+ + + | POCT | 2023-01-11 | [facility] | 3.2 | k/ul | (missing) | | NEUTROPHILS | | Health | | | | | (10*3/UL) | | System - | | | | | BLOOD AUTO | | [place] | | | | | CNT | | | | | | + + + +--------+ + + | POCT | 2023-01-11 | [facility] | 3.4 | gm/dl | (missing) | | ALBUMIN | | Health | | | | | | | System - | | | | | | | [place] | | | | + + + +--------+ + + | POCT MCH | 2023-01-11 | [facility] | 30.7 | pg | (missing) | | | | Health | | | | | | | System - | | | | | | | [place] | | | | + + + +--------+ + + | POCT MCHC | 2023-01-11 | [facility] | 34.2 | g/dl | (missing) | | | | Health | | | | | | | System - | | | | | | | [place] | | | | + + + +--------+ + + | POCT | 2023-01-11 | [facility] | 4.2 | mmol/l | (missing) | | POTASSIUM | | Health | | | | | | | System - | | | | | | | [place] | | | | + + + +--------+ + + | POCT | 2023-01-11 | [facility] | 4.6 | 10*3/ul | (missing) | | LEUKOCYTES(1 | | Health | | | | | 0*3/UL) | | System - | | | | | BLOOD BY | | [place] | | | | | AUTOMATED | | | | | | | COUNT | | | | | | + + + +--------+ + + | POCT RBC | 2023-01-11 | [facility] | 4.73 | m/ul | (missing) | | | | Health | | | | | | | System - | | | | | | | [place] | | | | + + + +--------+ + + | POCT | 2023-01-11 | [facility] | 42.4 | % | (missing) | | HEMATOCRIT | | Health | | | | | | | System - | | | | | | | [place] | | | | + + + +--------+ + + | POCT TOTAL | 2023-01-11 | [facility] | 6.9 | gm/dl | (missing) | | PROTEIN | | Health | | | | | | | System - | | | | | | | [place] | | | | + + + +--------+ + + | POCT | 2023-01-11 | [facility] | 70.1 | % | (missing) | | NEUTROPHILS/ | | Health | | | | | 100 LEUKOCY | | System - | | | | | BLOOD AUTO | | [place] | | | | | CNT | | | | | | + + + +--------+ + + | POCT | 2023-01-11 | [facility] | 8.1 | % | (missing) | | MIXED/100 | | Health | | | | | LEUKOCYTES | | System - | | | | | BLOOD AUTO | | [place] | | | | | CNT | | | | | | + + + +--------+ + + | POCT MPV | 2023-01-11 | [facility] | 8.4 | fl | (missing) | | | | Health | | | | | | | System - | | | | | | | [place] | | | | + + + +--------+ + + | POCT MCV | 2023-01-11 | [facility] | 89.6 | fl | (missing) | | | | Health | | | | | | | System - | | | | | | | [place] | | | | + + + +--------+ + + | POCT | 2023-01-11 | [facility] | 9.1 | mg/dl | (missing) | | CALCIUM | | Health | | | | | | | System - | | | | | | | [place] | | | | + + + +--------+ + + + + | Result panel 7 | + + + + + + + + + | BLOOD | 2023-01-11 | [facility] | No growth | (missing) | (missing) | | CULTURE | 15:28:14 | Health | at 24 hours | | | | | | System - | | | | | | | [place] | | | | + + + + + + + | BLOOD | 2023-01-11 | [facility] | No growth | (missing) | (missing) | | CULTURE | 15:28:14 | Health | at 3 days | | | | | | System - | | | | | | | [place] | | | | + + + + + + + | BLOOD | 2023-01-11 | [facility] | No growth | (missing) | (missing) | | CULTURE | 15:28:14 | Health | at 4 days | | | | | | System - | | | | | | | [place] | | | | + + + + + + + | BLOOD | 2023-01-11 | [facility] | No growth | (missing) | (missing) | | CULTURE | 15:28:14 | Health | at 48 hours | | | | | | System - | | | | | | | [place] | | | | + + + + + + + | BLOOD | 2023-01-11 | [facility] | No growth | (missing) | (missing) | | CULTURE | 15:28:14 | Health | at 5 days | | | | | | System - | | | | | | | [place] | | | | + + + + + + + | BLOOD | 2023-01-11 | [facility] | No growth | (missing) | (missing) | | CULTURE | 15:28:14 | Health | to date | | | | | | System - | | | | | | | [place] | | | | + + + + + + + + + | Result panel 8 | + + + + + + + + + | BLOOD | 2023-01-11 | [facility] | No growth | (missing) | (missing) | | CULTURE | 15:57:31 | Health | at 24 hours | | | | | | System - | | | | | | | [place] | | | | + + + + + + + | BLOOD | 2023-01-11 | [facility] | No growth | (missing) | (missing) | | CULTURE | 15:57:31 | Health | at 3 days | | | | | | System - | | | | | | | [place] | | | | + + + + + + + | BLOOD | 2023-01-11 | [facility] | No growth | (missing) | (missing) | | CULTURE | 15:57:31 | Health | at 4 days | | | | | | System - | | | | | | | [place] | | | | + + + + + + + | BLOOD | 2023-01-11 | [facility] | No growth | (missing) | (missing) | | CULTURE | 15:57:31 | Health | at 48 hours | | | | | | System - | | | | | | | [place] | | | | + + + + + + + | BLOOD | 2023-01-11 | [facility] | No growth | (missing) | (missing) | | CULTURE | 15:57:31 | Health | at 5 days | | | | | | System - | | | | | | | [place] | | | | + + + + + + + | BLOOD | 2023-01-11 | [facility] | No growth | (missing) | (missing) | | CULTURE | 15:57:31 | Health | to date | | | | | | System - | | | | | | | [place] | | | | + + + + + + + + + | Result panel 9 | + + + + + + + + + | | 2023-01-11 | [facility] | (missing) | (missing) | (missing) | | (unavailable | 23:49:16 | Urgent Care | | | | | ) | | [place] | | | | + + + + + + + + + | Result panel 10 | + + + + + + + + + | Lower | 2023-01-11 | [facility] | (missing) | (missing) | (missing) | | Extremities | 23:49:16 | [facility] | | | | | | | [place] | | | | + + + + + + + + + | Result panel 11 | + + + + + +-------+ + + | Auto WBC, | 2023-01-11 | [facility] | 4.6 | 10*3/uL | (missing) | | POC | 23:50:15 | Urgent [facility] | | | | | | | [place] | | | | + + + +-------+ + + + + | Result panel 12 | + + + + + +--------+ + + | RBC, POC | 2023-01-11 | [facility] | 4.73 | (missing) | (missing) | | | 23:50:15 | Urgent Care | | | | | | | [place] [facility] | | | | + + + +--------+ + + + + | Result panel 13 | + + + + + +--------+ + + | Hemoglobin, | 2023-01-11 | [facility] | 14.5 | (missing) | (missing) | | POC | 23:50:15 | [facility]gent [facility] | | | | | | | [place] [facility] | | | | + + + +--------+ + + + + | Result panel 14 | + + + + + +--------+-----+ + | Hematocrit, | 2023-01-11 | [facility] | 42.4 | % | (missing) | | POC | 23:50:15 | [facility] | | | | | | | [place] | | | | + + + +--------+-----+ + + + | Result panel 15 | + + + + + +--------+------+ + | MCV, POC | 2023-01-11 | [facility] | 89.6 | fl | (missing) | | | 23:50:15 | [facility] | | | | | | | [place] [facility] | | | | + + + +--------+------+ + + + | Result panel 16 | + + + + + +--------+------+ + | MCH, POC | 2023-01-11 | [facility] | 30.7 | pg | (missing) | | | 23:50:15 | [facility] | | | | | | | [place] | | | | + + + +--------+------+ + + + | Result panel 17 | + + + + + +--------+--------+ + | MCHC, POC | 2023-01-11 | [facility] | 34.2 | g/dL | (missing) | | | 23:50:15 | [facility] | | | | | | | [place] | | | | + + + +--------+--------+ + + + | Result panel 18 | + + + + + +--------+-----+ + | RDW-CV, POC | 2023-01-11 | [facility] | 12.7 | % | (missing) | | | 23:50:15 | [facility] | | | | | | | [place] | | | | + + + +--------+-----+ + + + | Result panel 19 | + + + + + +-------+ + + | Platelet | 2023-01-11 | [facility] | 205 | (missing) | (missing) | | Count, POC | 23:50:15 | [facility] | | | | | | | [place] | | | | + + + +-------+ + + + + | Result panel 20 | + + + + + +-------+------+ + | MPV, POC | 2023-01-11 | [facility] | 8.4 | fl | (missing) | | | 23:50:15 | [facility] | | | | | | | [place] | | | | + + + +-------+------+ + + + | Result panel 21 | + + + + + +--------+-----+ + | Neutro | 2023-01-11 | [facility] | 70.1 | % | (missing) | | Leukoc Blood | 23:50:15 | Urgent Care | | | | | Count, POC | | [place] [facility] | | | | + + + +--------+-----+ + + + | Result panel 22 | + + + + + +--------+-----+ + | Lymph | 2023-01-11 | [facility] | 21.8 | % | (missing) | | Leukocytes, | 23:50:15 | [facility]gent Care | | | | | POC | | [place] | | | | + + + +--------+-----+ + + + | Result panel 23 | + + + + + +-------+-----+ + | Mixed/100 | 2023-01-11 | [facility] | 8.1 | % | (missing) | | Leukocytes | 23:50:15 | Urgent Care | | | | | Blood Auto | | [place] | | | | | Cnt, POC | | | | | | + + + +-------+-----+ + + + | Result panel 24 | + + + + + +-------+ + + | Neutrophils | 2023-01-11 | [facility] | 3.2 | (missing) | (missing) | | (10*3/UL) | 23:50:15 | Urgent Care | | | | | Blood Auto | | [place] | | | | | Cnt, POC | | | | | | + + + +-------+ + + + + | Result panel 25 | + + + + + +-------+ + + | Lymphocytes | 2023-01-11 | [facility] | 1.0 | (missing) | (missing) | | (10*3/UL) | 23:50:15 | [facility]gent Care | | | | | Blood Auto | | [place] | | | | | Cnt, POC | | | | | | + + + +-------+ + + + + | Result panel 26 | + + + + + +-------+ + + | Mixed | 2023-01-11 | [facility] | 0.4 | (missing) | (missing) | | (10*3/UL) | 23:50:15 | [facility]gent [facility] | | | | | Blood Auto | | [place] [facility] | | | | | Cnt, POC | | | | | | + + + +-------+ + + + + | Result panel 27 | + + + + + + + + + | | 2023-01-11 | [facility] | Abnormal | (missing) | (missing) | | (unavailable | 23:50:15 | [facility]gent [facility] | | | | | ) | | [facility] | | | | + + + + + + + + + | Result panel 28 | + + + + + +-------+ + + | Chloride, | 2023-01-12 | [facility] | 111 | mmol/L | (missing) | | POC | 00:00:25 | [facility] | | | | | | | [facility] | | | | + + + +-------+ + + + + | Result panel 29 | + + + + + +------+ + + | tCO2, POC | 2023-01-12 | [facility] | 24 | mmol/L | (missing) | | | 00:00:25 | [facility] | | | | | | | [place] [facility] | | | | + + + +------+ + + + + | Result panel 30 | + + + + + +-------+---------+ + | Calcium, | 2023-01-12 | [facility] | 9.1 | mg/dL | (missing) | | POC | 00:00:25 | [facility] | | | | | | | [place] | | | | + + + +-------+---------+ + + + | Result panel 31 | + + + + + +-------+---------+ + | Creatinine | 2023-01-12 | [facility] | 1.1 | mg/dL | (missing) | | Blood, POC | 00:00:25 | [facility] | | | | | | | [place] [facility] | | | | + + + +-------+---------+ + + + | Result panel 32 | + + + + + +------+---------+ + | BUN, POC | 2023-01-12 | [facility] | 10 | mg/dL | (missing) | | | 00:00:25 | [facility] | | | | | | | [facility] | | | | + + + +------+---------+ + + + | Result panel 33 | + + + + + +------+-------+ + | AST (SGOT), | 2023-01-12 | [facility] | 26 | U/L | (missing) | | POC | 00:00:25 | [facility] | | | | | | | [facility] | | | | + + + +------+-------+ + + + | Result panel 34 | + + + + + +------+-------+ + | ALT (SGPT), | 2023-01-12 | [facility] | 27 | U/L | (missing) | | POC | 00:00:25 | [facility] | | | | | | | [place] | | | | + + + +------+-------+ + + + | Result panel 35 | + + + + + +-------+-------+ + | Alkaline | 2023-01-12 | [facility] | 116 | U/L | (missing) | | Phosphatase, | 00:00:25 | [facility]gent Care | | | | | POC | | [place] | | | | + + + +-------+-------+ + + + | Result panel 36 | + + + + + +-------+---------+ + | Total | 2023-01-12 | [facility] | 0.6 | mg/dL | (missing) | | Bilirubin, | 00:00:25 | [facility]gent Care | | | | | POC | | [place] | | | | + + + +-------+---------+ + + + | Result panel 37 | + + + + + +-------+ + + | Total | 2023-01-12 | [facility] | 6.9 | (missing) | (missing) | | Protein, POC | 00:00:25 | [facility]gent [facility] | | | | | | | [place] | | | | + + + +-------+ + + + + | Result panel 38 | + + + + + +-------+ + + | Albumin, | 2023-01-12 | [facility] | 3.4 | (missing) | (missing) | | POC | 00:00:25 | [facility] | | | | | | | [place] | | | | + + + +-------+ + + + + | Result panel 39 | + + + + + +-------+---------+ + | | 2023-01-12 | [facility] | 108 | mg/dL | (missing) | | (unavailable | 00:00:25 | [facility]gent [facility] | | | | | ) | | [place] | | | | + + + +-------+---------+ + + + | Result panel 40 | + + + + + +------+ + + | Lipemia | 2023-01-12 | [facility] | 3+ | (missing) | (missing) | | | 00:00:25 | [facility] | | | | | | | [place] [facility] | | | | + + + +------+ + + + + | Result panel 41 | + + + + + + + + + | | 2023-01-12 | [facility] | Abnormal | (missing) | (missing) | | (unavailable | 00:00:25 | [facility]gent [facility] | | | | | ) | | [place] | | | | + + + + + + + + + | Result panel 42 | + + + + + +-------+ + + | | 2023-01-12 | [facility] | 141 | mmol/L | (missing) | | (unavailable | 00:00:25 | [facility]gent [facility] | | | | | ) | | [place] | | | | + + + +-------+ + + + + | Result panel 43 | + + + + + +-------+ + + | Potassium, | 2023-01-12 | [facility] | 4.2 | mmol/L | (missing) | | POC | 00:00:25 | [facility] | | | | | | | [place] | | | | + + + +-------+ + + + + | Result panel 44 | + + + + + + + + + | | 2023-01-12 | [facility] | (missing) | (missing) | (missing) | | (unavailable | 00:00:37 | Urgent Care | | | | | ) | | [place] | | | | + + + + + + + + + | Result panel 45 | + + + + + + + + + | | 2023-01-12 | [facility] | (missing) | (missing) | (missing) | | (unavailable | 00:00:37 | [facility]gent [facility] | | | | | ) | | [facility] | | | | + + + + + + + + + | Result panel 46 | + + + + + + + + + | | 2023-01-12 | [facility] | (missing) | (missing) | (missing) | | (unavailable | 00:00:37 | [facility] | | | | | ) | | [facility] | | | | + + + + + + + Social History +--------+ + + | date | description | facility | +--------+ + + Vital Signs + + +---------+---------+ | date | measurement | value | units | + + +---------+---------+ | 2023-01-11 00:00 | BMI | 29.29 | kg/m2 | + + +---------+---------+ | 2023-01-11 00:00 | BP_diastolic | 112 | mmHg | + + +---------+---------+ | 2023-01-11 00:00 | BP_systolic | 154 | mmHg | + + +---------+---------+ | 2023-01-11 00:00 | heart_rate | 104 | /min | + + +---------+---------+ | 2023-01-11 00:00 | height_metric | 182.9 | cm | + + +---------+---------+ | 2023-01-11 00:00 | height_standard | 72.01 | in | + + +---------+---------+ | 2023-01-11 00:00 | o2_saturation | 96 | % | + + +---------+---------+ | 2023-01-11 00:00 | respiration_rate | 18 | /min | + + +---------+---------+ | 2023-01-11 00:00 | temperature_metric | 36.83 | C | | | | | | + + +---------+---------+ | 2023-01-11 00:00 | | 98.29 | F | | | temperature_standar | | | | | d | | | + + +---------+---------+ | 2023-01-11 00:00 | weight_metric | 97.98 | kg | + + +---------+---------+ | 2023-01-11 00:00 | weight_standard | 216 | lb | + + +---------+---------+"
[~2023-01-18 02:12] MED LIST changes: +AMOX TR-K CLV1 EAC1 PO
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
[2023-01-18 03:38] VITALS: BP 139/98
== END 2023-01-18 03:39 | disposition home or self-care (01) ==
LOC: ED 02:12
DX: T87.89 Other complications of amputation stump (principal); M25.511 Pain in right shoulder; Z89.511 Acquired absence of right leg below knee; Z88.6 Allergy status to analgesic agent; Z88.5 Allergy status to narcotic agent
CPT/HCPCS: 73030; 73560; 99283-25

== ENCOUNTER 2023-01-30 00:49 | Emergency (ER) | payer MEDICARE, OTHER ==
[~2023-01-30] VITALS: Ht 182.9 cm; Wt 94.4 kg
--- OUTSIDE RECORDS SUMMARY | ~2023-01-30 | XMS | Continuity of Care Document ---
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 Tender Name | Role | Phone | + [...] 00:00 | acetaminophen 325 mg / | [facility] | | | oxycodone hydrochloride 5 | [facility] | | | mg oral tablet [percocet] | | + + + + | 2023-01-12 00:00 | cefazolin 1 gm injection | [facility] | | | | [facility] | + + + + | 2023-01-12 00:00 | [id number] 0.3 ml | [facility] | | | epinephrine 1 mg/ml | [facility] | | | auto-injector | | + + + + | 2023-01-12 00:00 | omeprazole 20 mg (as | [facility] | | | omeprazole magnesium 20.6 | [...] 00:00 | amoxicillin 500 mg oral | [facility] | | | capsule | [place] [facility] | + + + + Problems + + + + | date | description | facility | + + + + | 2023-01-11 14:58:06 | Dental Pain | [facility] - | | | | [place] | + + + + | 2023-01-11 14:58:06 | Wound Infection | [facility] - | | | | [place] | + + + + | 2023-01-11 14:58:06 | Other chronic pain | [facility] - | | | | [place] | + + + + | 2023-01-11 14:58:06 | Disorder of teeth and | [facility] - | | | supporting structures, | [place] | | | unspecified | | + + + + | 2023-01-11 14:58:06 | Pain in right leg | [facility] - | | | | [place] | + + + + | 2023-01-11 14:58:06 | Other complications of | [facility] - | | | amputation stump | [place] | + + + + | 2023-01-11 15:27:58 | Other chronic pain | [facility] - | | | | [place] | + + + + | 2023-01-11 15:27:58 | Disorder of teeth and | [facility] - | | | supporting structures, | [place] | | | unspecified | | + + + + | 2023-01-11 15:27:58 | Pain in right leg | [facility] - | | | | [place] | + + + + | 2023-01-11 15:48:53 | Pain in right leg | [facility] - | | | | [place] | + + + + | 2023-01-11 23:20 | Fall | [facility] - | | | | [place] | + + + + | 2023-01-11 23:20 | Fall | [facility] - | | | | [place] | + + + + | 2023-01-11 23:20 | Unspecified dislocation of | [facility] - | | | right acromioclavicular | [place] | | | joint, initial encounter | | + + + + | 2023-01-11 23:20 | Contusion of right hip, | [facility] - | | | initial encounter | [place] | + + + + | 2023-01-11 23:20 | Unspecified fall, initial | [facility] - | | | encounter | [place] | + + + + | 2023-01-12 08:47:01 | Arm Pain | [facility] - | | | | [place] | + + + + | 2023-01-12 08:47:01 | Arm Pain | [facility] - | | | | [place] | + + + + | 2023-01-12 09:33 | Arm Pain | [facility] - | | | | [place] | + + + + | 2023-01-12 09:33 | Unspecified dislocation of | [facility] - | | | right acromioclavicular | [place] | | | joint, subsequent encounter | | | | | | + + + + | 2023-01-12 09:33 | Infection of amputation | [facility] - | | | stump, unspecified | [place] | | | extremity | | + + + + | 2023-01-12 09:33 | Unspecified fall, | [facility] - | | | subsequent encounter | [place] | + + + + Procedures + + + + | date | description | facility | + + + + | 2023-01-11 00:00 | COMPREHENSIVE MET PANEL | [facility] | | | [facility] | [facility] | + + + + | 2023-01-11 [...] + + | | (no date) | [facility] | (missing) | (missing) | (missing) | | (unavailable | | [facility] | | | | | ) | | [facility] | | | | + + + + + + + + + | Result panel 3 | + + + + + + + + + | Specimen | (no date) | [facility] | (missing) | (missing) | (missing) | | collection | | [facility] | | | | | (procedure) | | [facility] | | | | + + + + + + + + + | Result panel 4 | + + + + + + + + + | | (no date) | [facility] | (missing) | (missing) | (missing) | | (unavailable | | [facility] | | | | | ) | | [facility] | | | | + + + + + + + + + | Result panel 5 | + + + + + + + + + | Specimen | (no date) | [facility] | (missing) | (missing) | (missing) | [...] + + | Lower | 2023-01-11 | [facility] | (missing) | (missing) | (missing) | | Extremities | 23:49:16 | [facility] | | | | | | | [place] | | | | + + + + + + + + + | Result panel 11 | + + + + + +-------+ + + | Auto WBC, | 2023-01-11 | [facility] | 4.6 | 10*3/uL | (missing) | | POC | 23:50:15 | [facility] | | | | | | | [place] | | | | + + + +-------+ + + + + | Result panel 12 | + + + + + +--------+ + + | RBC, POC | 2023-01-11 | [facility] | 4.73 | (missing) | (missing) | | | 23:50:15 | [facility] | | | | | | | [place] | | | | + + + +--------+ + + + + | Result panel 13 | + + + + + +--------+ + + | Hemoglobin, | 2023-01-11 | [facility] | 14.5 | (missing) | (missing) | | POC | 23:50:15 | [facility] | | | | | | | [place] | | | | + + + +--------+ + + + + | Result panel 14 | + + + + + +--------+-----+ + | Hematocrit, | 2023-01-11 | [facility] | 42.4 | % | (missing) | | POC | 23:50:15 | [facility] | | | | | | | [place] | | | | + + + +--------+-----+ + + + | Result panel 15 | + + + + + +--------+------+ + | MCV, POC | 2023-01-11 | [facility] | 89.6 | fl | (missing) | | | 23:50:15 | [facility] | | | | | | | [place] [facility] | | | | + + + +--------+------+ + + + | Result panel 16 | + + + + + +--------+------+ + | MCH, POC | 2023-01-11 | [facility] | 30.7 | pg | (missing) | | | 23:50:15 | [facility] | | | | | | | [place] | | | | + + + +--------+------+ + + + | Result panel 17 | + + + + + +--------+--------+ + | MCHC, POC | 2023-01-11 | [facility] | 34.2 | g/dL | (missing) | | | 23:50:15 | Urgent [facility] | | | | | | | [place] [facility] | | | | + + + +--------+--------+ + + + | Result panel 18 | + + + + + +--------+-----+ + | RDW-CV, POC | 2023-01-11 | [facility] | 12.7 | % | (missing) | | | 23:50:15 | [facility] | | | | | | | [place] | | | | + + + +--------+-----+ + + + | Result panel 19 | + + + + + +-------+ + + | Platelet | 2023-01-11 | [facility] | 205 | (missing) | (missing) | | Count, POC | 23:50:15 | [facility] | | | | | | | [place] | | | | + + + +-------+ + + + + | Result panel 20 | + + + + + +-------+------+ + | MPV, POC | 2023-01-11 | [facility] | 8.4 | fl | (missing) | | | 23:50:15 | [facility] | | | | | | | [place] | | | | + + + +-------+------+ + + + | Result panel 21 | + + + + + +--------+-----+ + | Neutro | 2023-01-11 | [facility] | 70.1 | % | (missing) | | Leukoc Blood | 23:50:15 | Urgent [facility] | | | | | Count, POC | | [place] | | | | + + + +--------+-----+ + + + | Result panel 22 | + + + + + +--------+-----+ + | Lymph | 2023-01-11 | [facility] | 21.8 | % | (missing) | | Leukocytes, | 23:50:15 | Urgent Care | | | | | POC | | [place] [facility] | | | | + + + +--------+-----+ + + + | Result panel 23 | + + + + + +-------+-----+ + | Mixed/100 | 2023-01-11 | [facility] | 8.1 | % | (missing) | | Leukocytes | 23:50:15 | Urgent Care | | | | | Blood Auto | | [place] [facility] | | | | | Cnt, POC | | | | | | + + + +-------+-----+ + + + | Result panel 24 | + + + + + +-------+ + + | Neutrophils | 2023-01-11 | [facility] | 3.2 | (missing) | (missing) | [...] + + | Lymphocytes | 2023-01-11 | [facility] | 1.0 | (missing) | (missing) | [...] + + | Mixed | 2023-01-11 | [place] | 0.4 | (missing) | (missing) | [...] + + + | | 2023-01-11 | [facility] | Abnormal | (missing) | (missing) | | (unavailable | 23:50:15 | [facility] | | | | | ) | | [facility] | | | | + + + + + + + + + | Result panel 28 | + + + + + +-------+ + + | Chloride, | 2023-01-12 | [facility] | 111 | mmol/L | (missing) | | POC | 00:00:25 | [facility] | | | | | | | [facility] | | | | + + + +-------+ + + + + | Result panel 29 | + + + + + +------+ + + | tCO2, POC | 2023-01-12 | [facility] | 24 | mmol/L | (missing) | | | 00:00:25 | [facility] | | | | | | | [facility] | | | | + + + +------+ + + + + | Result panel 30 | + + + + + +-------+---------+ + | Calcium, | 2023-01-12 | [facility] | 9.1 | mg/dL | (missing) | | POC | 00:00:25 | [facility] | | | | | | | [facility] | | | | + + + +-------+---------+ + + + | Result panel 31 | + + + + + +-------+---------+ + | Creatinine | 2023-01-12 | [facility] | 1.1 | mg/dL | (missing) | | Blood, POC | 00:00:25 | [facility] | | | | | | | [facility] | | | | + + + +-------+---------+ + + + | Result panel 32 | + + + + + +------+---------+ + | BUN, POC | 2023-01-12 | [facility] | 10 | mg/dL | (missing) | | | 00:00:25 | [facility] | | | | | | | [facility] | | | | + + + +------+---------+ + + + | Result panel 33 | + + + + + +------+-------+ + | AST (SGOT), | 2023-01-12 | [facility] | 26 | U/L | (missing) | | POC | 00:00:25 | [facility] | | | | | | | [facility] | | | | + + + +------+-------+ + + + | Result panel 34 | + + + + + +------+-------+ + | ALT (SGPT), | 2023-01-12 | [facility] | 27 | U/L | (missing) | | POC | 00:00:25 | [facility] | | | | | | | [place] | | | | + + + +------+-------+ + + + | Result panel 35 | + + + + + +-------+-------+ + | Alkaline | 2023-01-12 | [facility] | 116 | U/L | (missing) | | Phosphatase, | 00:00:25 | [facility]gent Care | | | | | POC | | [place] | | | | + + + +-------+-------+ + + + | Result panel 36 | + + + + + +-------+---------+ + | Total | 2023-01-12 | [facility] | 0.6 | mg/dL | (missing) | | Bilirubin, | 00:00:25 | [facility]gent [facility] | | | | | POC | | [place] | | | | + + + +-------+---------+ + + + | Result panel 37 | + + + + + +-------+ + + | Total | 2023-01-12 | [facility] | 6.9 | (missing) | (missing) | | Protein, POC | 00:00:25 | [facility] | | | | | | | [place] | | | | + + + +-------+ + + + + | Result panel 38 | + + + + + +-------+ + + | Albumin, | 2023-01-12 | [facility] | 3.4 | (missing) | (missing) | | POC | 00:00:25 | [facility] | | | | | | | [place] [facility] | | | | + + + +-------+ + + + + | Result panel 39 | + + + + + +-------+---------+ + | | 2023-01-12 | [facility] | 108 | mg/dL | (missing) | | (unavailable | 00:00:25 | [facility] | | | | | ) | | [place] [facility] | | | | + + + +-------+---------+ + + + | Result panel 40 | + + + + + +------+ + + | Lipemia | 2023-01-12 | [facility] | 3+ | (missing) | (missing) | | | 00:00:25 | [facility] | | | | | | | [place] [facility] | | | | + + + +------+ + + + + | Result panel 41 | + + + + + + + + + | | 2023-01-12 | [facility] | Abnormal | (missing) | (missing) | | (unavailable | 00:00:25 | [facility] | | | | | ) | | [facility] | | | | + + + + + + + + + | Result panel 42 | + + + + + +-------+ + + | | 2023-01-12 | [facility] | 141 | mmol/L | (missing) | | (unavailable | 00:00:25 | [facility]gent Care | | | | | ) | | [place] | | | | + + + +-------+ + + + + | Result panel 43 | + + + + + +-------+ + + | Potassium, | 2023-01-12 | [facility] | 4.2 | mmol/L | (missing) | [...] + + + | | 2023-01-12 | [place] | (missing) | (missing) | (missing) | [...]
--- OUTSIDE RECORDS SUMMARY | 2023-01-30 00:52 | XMS ---
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 Care History Medical/Surgical 11/30/2020 [facility] Patient tried to be seen by Dr. Wise and walk in clinic, but notes show there was not an available provider in the clinic on 11/29/2020, therefore he went to ER. 06/10/2019 [facility] \T\nbsp;Patient had a scheduled televisit appt. with Dr. Wise on 06/08/2019, but patient could not be reached - Patient\T\#39;s voicemail is full. I mailed letter to advise of phone issue and to use walk in clinic for non life threatening treatment.\T\nbsp; Advise for patient to contact clinic to reschedule for follow up. 05/05/2019 [facility] Pt stated that he saw foot doctor \T\xiomara; Dr. Grimaldo or Dr. Muller, and has a follow up with Dr. Tsai on 05/20/2019 for his knee. E.Shara VISIT COUNT ([address] [facility] [place] [address] [facility] Med TOTAL 5 NOTE: Visits indicate total known visits. ED/UCC VISIT TRACKING (12 MO.) 01/30[facility]2023 [facility] [facility]: Emergency COMPLAINT: - ABD PAIN 01/18/2023 02:13 [facility] [place] TYPE: Emergency COMPLAINT: - LEG PAIN DIAGNOSES: - Acquired absence of right leg below knee - Allergy status to analgesic agent - Allergy status to narcotic agent - Other complications of amputation stump - Pain in right shoulder 01/12[facility]2023 09:33 [facility] [place] [facility] DIAGNOSES: - Infection [...] was seen at before [facility]. 01/11/2023 23:20 [facility] [place] TYPE: Emergency DIAGNOSES: - Contusion of right hip, initial encounter - Unspecified dislocation of right acromioclavicular joint, initial encounter - Unspecified fall, initial encounter - Fall - Leg Pain/ Fall / Amputee 05/31/2022 18:[address] [facility] [place] TYPE: Emergency [...] visits to display in this time frame [id number]
[2023-01-30 01:04] LABS: BASOPHILS 0.6 % (0-2); EOSINOPHILS 0.9 % (0-6); HEMATOCRIT 43.2 % (35.0-50.0); HEMOGLOBIN 14.5 g/dL (12.0-18.0); MCH 30.2 (27-36); MCHC 33.6 g/dl (30-36); MCV 89.9 fl (81-99); MONOCYTES 8.8 % (0-12); NEUTROPHILS 64.7 % (39-80); PLATELET COUNT 259 K/uL (140-440); RBC 4.81 M/ul (4.3-5.7); RDW 13.4 (10.5-15.0)
[2023-01-30 01:28] LABS: ALBUMIN 3.5 g/dL (3.4-5.0); ALBUMIN/GLOBULIN RATIO 0.88 (1.1-2.4); BILIRUBIN, TOTAL 0.5 ng/dL (0.2-1.0); BUN/CREATININE RATIO 3.84 (6.0-28.6); CALCIUM 8.7 mg/dL (8.5-10.1); CREATININE, SERUM 1.04 mg/dL (0.70-1.30); PROTEIN, TOTAL 7.5 g/dL (6.4-8.2)
[2023-01-30 01:32] LABS: ANION GAP 12.3 (7-21); POTASSIUM 3.3 mmol/L (3.5-5.1)
[2023-01-30 02:54] LABS: BILIRUBIN, URINE NEGATIVE (negative); BLOOD/HGB, URINE NEGATIVE (Negative); KETONE, URINE NEGATIVE (Negative); LEUK ESTERASE, URINE NEGATIVE (negative); NITRITE, URINE NEGATIVE (negative); PH, URINE 6.5 (5-7)
[2023-01-30 02:59] LABS: AMPHETAMINES, UR POSITIVE (NEGATIVE)
[2023-01-30 03:00] LABS: BARBITURATES, UR NEGATIVE (NEGATIVE); BENZODIAZEPINES, UR NEGATIVE (NEGATIVE); BUPRENORPHINE,UR NEGATIVE (NEGATIVE); COCAINE, UR NEGATIVE (NEGATIVE); MARIJUANA (THC), UR NEGATIVE (NEGATIVE); MDMA, UR NEGATIVE (NEGATIVE); METHADONE, UR NEGATIVE (NEGATIVE); METHAMPHETAMINE, UR POSITIVE (NEGATIVE); OPIATES, UR NEGATIVE (NEGATIVE); OXYCODONE, UR NEGATIVE (NEGATIVE); PHENCYCLIDINE, UR NEGATIVE (NEGATIVE); TRICYCLIC ANTIDEPRESSANT, UR NEGATIVE (NEGATIVE)
[2023-01-30] MEDS ORDERED: FLOMAX0.4 MG PO (03:56)
[2023-01-30] MEDS ORDERED: HYDROCODON-ACE1 EA10 PO (03:56)
[2023-01-30 04:14] VITALS: BP 138/99
== END 2023-01-30 04:15 | disposition home or self-care (01) ==
LOC: ED 00:49
PROVIDERS: Family Medicine
DX: R33.9 Retention of urine, unspecified (principal); M25.552 Pain in left hip; Z88.6 Allergy status to analgesic agent; Z88.5 Allergy status to narcotic agent
CPT/HCPCS: 36415; 51702; 51798; 74177; 80053; 80307; 81003; 83690; 85025; 99284-25; A9270; J2310; J2405; J3010; J7030; J7040; Q9967

== ENCOUNTER 2023-12-01 16:23 | Emergency (ER) | payer MEDICARE, OTHER ==
[~2023-12-01] VITALS: Ht 182.9 cm; Wt 78.0 kg
[~2023-12-01 16:23] MED LIST changes: +FLOMAX0.4 MG PO
[2023-12-01] MEDS ORDERED: KETOROLAC TROMETHAMINE 30 MG/ML VIAL IM ONE (17:00)
[2023-12-01] MEDS ORDERED: HYDROmorphone HCL 2 MG/ML VIAL IM ONE (17:00)
[2023-12-01] MEDS ORDERED: diazePAM 10 MG/2 ML SYR IM ONE (17:00)
[2023-12-01] MEDS ORDERED: METHOCARBAMOL500 MG PO (17:14)
[2023-12-01 18:04] VITALS: BP 110/82
== END 2023-12-01 18:05 | disposition home or self-care (01) ==
LOC: ED 16:23
DX: M62.838 Other muscle spasm (principal); Z89.511 Acquired absence of right leg below knee; Z88.6 Allergy status to analgesic agent; Z88.5 Allergy status to narcotic agent
CPT/HCPCS: 96372; 99283-25; J1170; J1885; J3360

== ENCOUNTER 2023-12-09 21:41 | Emergency (ER) | payer MEDICARE, OTHER ==
[~2023-12-09] VITALS: Ht 182.9 cm; Wt 79.5 kg
[~2023-12-09 21:41] MED LIST changes: +METHOCARBAMOL500 MG PO
[2023-12-10] MEDS ORDERED: ACETAMINOPHEN 500 MG TAB PO ONE (01:30)
[2023-12-10 02:04] VITALS: BP 120/90
== END 2023-12-10 02:07 | disposition home or self-care (01) ==
LOC: ED 21:41
DX: T87.89 Other complications of amputation stump (principal); Z59.00 Homelessness unspecified; Z88.6 Allergy status to analgesic agent; Z88.5 Allergy status to narcotic agent; Z88.8 Allergy status to other drugs, medicaments and biological substances; Z89.511 Acquired absence of right leg below knee
CPT/HCPCS: 99283; A9270

== ENCOUNTER 2023-12-11 16:24 | Emergency (ER) | payer MEDICARE, OTHER ==
[~2023-12-11] VITALS: Ht 182.9 cm; Wt 79.4 kg
[2023-12-11 20:15] LABS: BASOPHILS 0.8 % (0-2); EOSINOPHILS 1.1 % (0-6); HEMATOCRIT 40.2 % (35.0-50.0); HEMOGLOBIN 13.6 g/dL (12.0-18.0); LYMPHOCYTES 29.2 % (24-44); MCH 30.3 (27-36); MCHC 33.9 g/dl (30-36); MCV 89.4 fl (81-99); MONOCYTES 5.8 % (0-12); NEUTROPHILS 63.1 % (39-80); PLATELET COUNT 218 K/uL (140-440); RDW 12.9 (10.5-15.0)
[2023-12-11] MEDS ORDERED: DOXYCYCLINE HYCLATE 100 MG HOME.PACK PO ONE (21:00)
[2023-12-11] MEDS ORDERED: HYDROCODONE BIT/ACETAMINOPHEN 5/325 MG 1 TAB HOME.PACK PO ONE (21:00)
[2023-12-11 21:11] VITALS: BP 126/93
== END 2023-12-11 21:18 | disposition home or self-care (01) ==
LOC: ED 16:24
PROVIDERS: Family Medicine
DX: L03.115 Cellulitis of right lower limb (principal); Z89.511 Acquired absence of right leg below knee; Z88.6 Allergy status to analgesic agent; Z88.5 Allergy status to narcotic agent
CPT/HCPCS: 36415; 73560; 83605; 85025; 99283; A9270

== ENCOUNTER 2023-12-14 05:54 | Emergency (ER) | payer MEDICARE, OTHER ==
[~2023-12-14] VITALS: Ht 182.9 cm; Wt 80.0 kg
[2023-12-14 06:34] LABS: BASOPHILS 0.8 % (0-2); EOSINOPHILS 0.8 % (0-6)
[2023-12-14 06:36] LABS: HEMATOCRIT 39.3 % (35.0-50.0); HEMOGLOBIN 13.4 g/dL (12.0-18.0); LYMPHOCYTES 16.2 % (24-44); MCH 30.4 (27-36); MCV 89.3 fl (81-99); MONOCYTES 5.1 % (0-12); NEUTROPHILS 77.1 % (39-80); PLATELET COUNT 231 K/uL (140-440); RDW 13.1 (10.5-15.0)
[2023-12-14] MEDS ORDERED: HYDROCODONE BIT/ACETAMINOPHEN 5/325 MG 1 TAB HOME.PACK PO ONE (07:15)
[2023-12-14 07:24] VITALS: BP 104/67
== END 2023-12-14 07:25 | disposition home or self-care (01) ==
LOC: ED 05:54
PROVIDERS: Family Medicine
DX: M25.561 Pain in right knee (principal); L03.115 Cellulitis of right lower limb; Z89.511 Acquired absence of right leg below knee; Z88.6 Allergy status to analgesic agent; Z88.5 Allergy status to narcotic agent
CPT/HCPCS: 36415; 73700; 83605; 85025; 86140; 99284-25; A9270

== ENCOUNTER 2023-12-22 10:34 | Emergency (ER) | payer OTHER, MEDICARE ==
[~2023-12-22] VITALS: Ht 182.9 cm; Wt 78.2 kg
[2023-12-22] MEDS ORDERED: OXYCODONE/APAP 5/325 TAB PO ONE (11:15)
[2023-12-22] MEDS ORDERED: HYDROCODON-ACE1 EA10 PO (13:00)
[2023-12-22] MEDS ORDERED: METHYLPREDNISOLO4 M1 PO (13:00)
[2023-12-22 13:12] VITALS: BP 132/103
== END 2023-12-22 13:12 | disposition home or self-care (01) ==
LOC: ED 10:34
DX: M25.552 Pain in left hip (principal); Z89.511 Acquired absence of right leg below knee; Z88.6 Allergy status to analgesic agent; Z88.5 Allergy status to narcotic agent; W01.0XXA Fall on same level from slipping, tripping and stumbling without subsequent striking against object, initial encounter
CPT/HCPCS: 73502; 99283

== ENCOUNTER 2023-12-27 23:41 | Emergency (ER) | payer MEDICARE, OTHER ==
[~2023-12-27] VITALS: Ht 182.9 cm; Wt 79.5 kg
[~2023-12-27 23:41] MED LIST changes: +METHYLPREDNISOLO4 M1 PO
[2023-12-28] MEDS ORDERED: DOXYCYCLINE HY100 MG PO (00:06)
[2023-12-28] MEDS ORDERED: HYDROCODONE BIT/ACETAMINOPHEN 5/325 MG 1 TAB HOME.PACK PO ONE (00:45)
[2023-12-28 01:25] VITALS: BP 135/96
== END 2023-12-28 01:25 | disposition home or self-care (01) ==
LOC: ED 23:41
DX: L98.8 Other specified disorders of the skin and subcutaneous tissue (principal); Z89.511 Acquired absence of right leg below knee; Z88.6 Allergy status to analgesic agent; Z88.5 Allergy status to narcotic agent
CPT/HCPCS: 99283; A9270

== ENCOUNTER 2024-01-01 23:57 | Emergency (ER) | payer MEDICARE, OTHER ==
[~2024-01-01] VITALS: Ht 182.9 cm; Wt 79.0 kg
[~2024-01-01 23:57] MED LIST changes: +DOXYCYCLINE HY100 MG PO
[2024-01-02 00:36] VITALS: BP 130/93
== END 2024-01-02 00:35 | disposition home or self-care (01) ==
LOC: ED 23:57
DX: T87.89 Other complications of amputation stump (principal); Y83.8 Other surgical procedures as the cause of abnormal reaction of the patient, or of later complication, without mention of misadventure at the time of the procedure; Z59.00 Homelessness unspecified; Z88.8 Allergy status to other drugs, medicaments and biological substances; Z88.6 Allergy status to analgesic agent; Z88.5 Allergy status to narcotic agent
CPT/HCPCS: 99283

== ENCOUNTER 2024-01-31 20:38 | Emergency (ER) | payer MEDICARE, OTHER ==
[~2024-01-31] VITALS: Ht 182.9 cm; Wt 77.2 kg
[~2024-01-31 20:38] MED LIST changes: +CLINDAMYCIN HC150 MG PO; +LYRICA75 MG PO
[2024-01-31] MEDS ORDERED: DOXYCYCLINE HY100 MG PO (21:09)
[2024-01-31] MEDS ORDERED: DOXYCYCLINE HYCLATE 100 MG HOME.PACK PO ONE (21:15)
[2024-01-31 21:29] VITALS: BP 132/78
[2024-01-31] MEDS ORDERED: ACETAMINOPHEN 500 MG TAB PO ONE (21:30)
== END 2024-01-31 21:31 | disposition home or self-care (01) ==
LOC: ED 20:38
DX: T87.43 Infection of amputation stump, right lower extremity (principal); L03.115 Cellulitis of right lower limb; Y83.8 Other surgical procedures as the cause of abnormal reaction of the patient, or of later complication, without mention of misadventure at the time of the procedure; Z89.511 Acquired absence of right leg below knee; Z59.00 Homelessness unspecified; Z88.6 Allergy status to analgesic agent; Z88.5 Allergy status to narcotic agent; Z88.8 Allergy status to other drugs, medicaments and biological substances; Z79.899 Other long term (current) drug therapy
CPT/HCPCS: 99283; A9270

== ENCOUNTER 2024-02-13 02:59 | Emergency (ER) | payer MEDICARE, OTHER ==
[~2024-02-13] VITALS: Ht 182.9 cm; Wt 80.0 kg
[2024-02-13] MEDS ORDERED: BACTRIM DS TAB1 EACH PO (03:27)
[2024-02-13] MEDS ORDERED: OXYCODONE HCL5 MG PO (03:27)
[2024-02-13] MEDS ORDERED: TRIMETHOPRIM/SULFAMETHOXAZOLE 1 EA HOME.PACK PO ONE (03:30)
[2024-02-13] MEDS ORDERED: OXYCODONE HCL 5 MG TAB PO ONE (03:30)
[2024-02-13 03:38] VITALS: BP 143/90
== END 2024-02-13 03:39 | disposition home or self-care (01) ==
LOC: ED 02:59
DX: L02.415 Cutaneous abscess of right lower limb (principal); L03.115 Cellulitis of right lower limb; Z89.511 Acquired absence of right leg below knee; Z88.6 Allergy status to analgesic agent; Z88.5 Allergy status to narcotic agent
CPT/HCPCS: 99283; A9270

== ENCOUNTER 2024-02-18 10:47 | Emergency (ER) | payer MEDICARE, OTHER ==
[~2024-02-18] VITALS: Ht 182.9 cm; Wt 79.7 kg
[2024-02-18] MEDS ORDERED: SULFAMETHOXAZO1 EAC1 PO (11:33)
[2024-02-18] MEDS ORDERED: CENTANY30 GM TOP (14:39)
[2024-02-18 14:45] VITALS: BP 126/101
== END 2024-02-18 14:46 | disposition home or self-care (01) ==
LOC: ED 10:47
DX: M79.641 Pain in right hand (principal); M79.642 Pain in left hand; Z96.652 Presence of left artificial knee joint; Z88.5 Allergy status to narcotic agent; Z88.8 Allergy status to other drugs, medicaments and biological substances
CPT/HCPCS: 99283

== ENCOUNTER 2024-02-21 12:43 | Emergency (ER) | payer MEDICARE, OTHER ==
[~2024-02-21] VITALS: Ht 182.9 cm; Wt 77.1 kg
[~2024-02-21 12:43] MED LIST changes: +CENTANY30 GM TOP; +SULFAMETHOXAZO1 EAC1 PO
[2024-02-21 17:35] VITALS: BP 140/93
== END 2024-02-21 17:35 | disposition home or self-care (01) ==
LOC: ED 12:43
DX: M79.604 Pain in right leg (principal); L60.8 Other nail disorders; Z89.511 Acquired absence of right leg below knee; Z88.6 Allergy status to analgesic agent; Z88.5 Allergy status to narcotic agent; Z79.2 Long term (current) use of antibiotics
CPT/HCPCS: 99283

== ENCOUNTER 2024-02-22 06:19 | Emergency (ER) | payer MEDICARE, OTHER ==
[~2024-02-22] VITALS: Ht 182.9 cm; Wt 88.0 kg
[2024-02-22 09:10] VITALS: BP 138/70
== END 2024-02-22 09:18 | disposition home or self-care (01) ==
LOC: ED 06:19
DX: T87.89 Other complications of amputation stump (principal); Z59.00 Homelessness unspecified; Z60.9 Problem related to social environment, unspecified; Z88.6 Allergy status to analgesic agent; Z88.5 Allergy status to narcotic agent; Z79.2 Long term (current) use of antibiotics
CPT/HCPCS: 99282

== ENCOUNTER 2024-09-20 13:10 | Emergency (ER) | payer MEDICARE ==
[~2024-09-20] VITALS: Ht 182.9 cm; Wt 79.0 kg
[2024-09-20] MEDS ORDERED: HYDROCODONE/ACETA 5/325 TAB PO ONE (13:30)
[2024-09-20] MEDS ORDERED: HYDROCODON-ACE1 EA11 PO (14:25)
[2024-09-20 14:37] VITALS: BP 127/94
== END 2024-09-20 14:37 | disposition home or self-care (01) ==
LOC: ED 13:10
DX: S93.602A Unspecified sprain of left foot, initial encounter (principal); X58.XXXA Exposure to other specified factors, initial encounter
CPT/HCPCS: 73630; 99283